=== PATIENT | female | born 1950 | race Caucasian/White ===

== ENCOUNTER → 2017-09-30 12:59 | Outpatient (CLI) | payer OTHER, SELFPAY ==
--- NOTE | 2017-10-09 17:37 | PM.PFT.1 ---
Pulmonary Function Test Referral & Results Date Patient Seen: 09/30/17 Requesting provider: Chayo Ballesteros Results: The spirometry demonstrates an FVC of 0.87 L which is 34% of predicted. The FEV1 was measured at 0.68 L which is 35% of predicted. The FEV1/FVC ratio was 78 which is 102% of predicted. Following the administration of bronchodilator there was 10% improvement in FEV1 and a 59% improvement in FEF 25-75%. Lung volumes show an SVC of 1.40 L which is 56% of predicted. The diffusing capacity was measured at 9.33 which is 49% of predicted. No hemoglobin value was provided, so no correction for potential anemia could be made, if appropriate. The maximum voluntary ventilation was reduced. Interpretation: This study demonstrates severe obstructive lung disease with an FEV1 of only 0.68 L. There was evidence of improvement following bronchodilator with a significant improvement in FEF 25-75% suggesting significant improvement in small airway flow. There is also severe restrictive lung disease present with a severe reduction in lung volumes There is also severe reduction in diffusing capacity suggesting significant disease at the capillary alveolar level. Compared to PFTs performed in November 2011, current study shows worsening of obstructive lung disease with previous FEV1 of 0.96 L now 0.68 L. Has also been reduction in lung volumes and previous diffusing capacity was normal, currently significantly reduced as above. Clinical correlation suggested
== END ==
PROVIDERS: Family Provider Internal Medicine; PCP Internal Medicine; Visit Provider Internal Medicine
DX: J44.9 Chronic obstructive pulmonary disease, unspecified (principal)
CPT/HCPCS: 94010; 94060; 94726; 94729

== ENCOUNTER 2018-06-01 06:32 | Day surgery (SDC) | payer OTHER, SELFPAY ==
[2018-06-01 07:17] VITALS: BP 147/74; PULSE 87; RESP 20; TEMP 36.4; O2SAT 95; BMI 50.1
[2018-06-01] MEDS: PROPARACAINE 0.5% OPHTH SOL 2 DROPS EYE-OP (07:18)
[2018-06-01] MEDS: CATARACT EYE COMPOUND (10 DROPS/SYRINGE) 3 DROPS EYE-OP (07:25)
--- NOTE | 2018-06-01 08:19 | PM.PREOP ---
Pre-operative Note Interval Note History & Physical reviewed/Exam performed by Physician: No Changes to H&P: No
--- NOTE | 2018-06-01 08:19 | PM.OP.1 ---
Operative Date/Time/Diagnoses Pre-op diagnosis: Nuclear Cataract Left eye Post-op diagnosis: same Procedure & Clinicians Surgeon: Vance Joyce Anesthesia Type: MAC +/- and Sedation Operative Notes Procedure in detail: Patient brought to the operating suite. Tetracaine drops placed in the left eye. Patient was prepped and draped in sterile manner. Wire lid speculum was placed in the eye. Betadine drops were placed on the eye. This was irrigated. Lidocaine jelly was placed on the eye. A paracentesis port was created with a side-port blade. 0.1 mL 1% preservative free lidocaine was injected into the anterior chamber. The anterior chamber was deepened with viscoelastic. 2.6 mm keratome was used to create a temporal clear corneal incision. Cystotome and Utrata forceps were used to create continuous tear capsulorrhexis. Balanced salt solution was used to hydro dissect the nucleus. The phacoemulsification handpiece was inserted and the nucleus was removed using the stop and chop technique. The irrigation aspiration handpiece was inserted and the remaining cortex was removed. Anterior chamber was deepened with viscoelastic. An Ellison ZCB00 intraocular lens with a power of 24.5 was injected into the capsular bag. Irrigation aspiration handpiece was inserted and the remaining viscoelastic was removed. Incision was hydrated with balanced salt solution and found to be leak free with pressure with Weck-Mylene sponges. 0.1 mL Vigamox injected anterior chamber. 0.3 mL Kenalog 10 mg was injected subconjunctivally. Lid speculum was removed. The patient left the operating room in excellent condition. Complications: none Condition: stable Disposition: same day surgery
[2018-06-01] MEDS: CHONDROIDTIN/SOD HYALURONATE 1.05 ML SYRINGE INTRAOCULA (08:34)
[2018-06-01] MEDS: TETRACAINE 0.5% OPHTH DROPS 4 ML 2 DROPS EYE-OP (08:35)
[2018-06-01] MEDS: MOXIFLOXACIN OPHTH DROPS 3 ML BOTTLE 2 DROPS INJ (08:35)
[2018-06-01] MEDS: LIDOCAINE JELLY 2% 5 ML 1 APPLIC TOP (08:35)
[2018-06-01] MEDS: PHENYLEPHRINE/LIDOCAINE VIAL (OR) 0.2 ML EYE-OP (08:35)
[2018-06-01] MEDS: BALANCED SALT IRRIG SOLN NO.2 500 ML, EPINEPHrine 1 MG IRR (08:36)
[2018-06-01] MEDS: TRIAMCINOLONE 50 MG/5 ML VIAL INJ (08:36)
[2018-06-01 08:53] VITALS: BP 130/76; PULSE 95; RESP 16; TEMP 36.2; O2SAT 97
--- NOTE | 2018-06-01 09:20 | SUR.PHASEII ---
Blair ate entry: Pt almost ready to go, reported off to KSENIA Watson
== END 2018-06-01 09:00 ==
PROVIDERS: Family Provider Internal Medicine; PCP Internal Medicine; Visit Provider Ophthalmology
DX: H25.12 Age-related nuclear cataract, left eye (principal); I10 Essential (primary) hypertension; E11.9 Type 2 diabetes mellitus without complications; Z79.84 Long term (current) use of oral hypoglycemic drugs
CPT/HCPCS: J0171; J2250; J3301

== ENCOUNTER 2018-06-29 06:46 | Day surgery (SDC) | payer OTHER, SELFPAY ==
[2018-06-29] MEDS: PROPARACAINE 0.5% OPHTH SOL 2 DROPS EYE-OP (07:47)
[2018-06-29] MEDS: CATARACT EYE COMPOUND (10 DROPS/SYRINGE) 3 DROPS EYE-OP (07:49)
[2018-06-29 07:55] VITALS: BP 143/52; PULSE 77; RESP 16; TEMP 36.6; O2SAT 91; BMI 47.9
--- NOTE | 2018-06-29 08:52 | PM.PREOP ---
Pre-operative Note Interval Note History & Physical reviewed/Exam performed by Physician: No Changes to H&P: No
--- NOTE | 2018-06-29 08:52 | PM.OP.1 ---
Operative Date/Time/Diagnoses Pre-op diagnosis: Nuclear cataract right eye Procedure & Clinicians Procedure: Cataract Surgery Same procedure as scheduled: Yes Surgeon: Vance Joyce Anesthesia Type: MAC +/- and Sedation Operative Notes Procedure in detail: Patient brought to the operating suite. Tetracaine drops placed in the right eye. Patient was prepped and draped in sterile manner. Wire lid speculum was placed in the eye. Betadine drops were placed on the eye. This was irrigated. Lidocaine jelly was placed on the eye. A paracentesis port was created with a side-port blade. 0.1 mL 1% preservative free lidocaine was injected into the anterior chamber. The anterior chamber was deepened with viscoelastic. 2.6 mm keratome was used to create a temporal clear corneal incision. Cystotome and Utrata forceps were used to create continuous tear capsulorrhexis. Balanced salt solution was used to hydro dissect the nucleus. The phacoemulsification handpiece was inserted and the nucleus was removed using the stop and chop technique. The irrigation aspiration handpiece was inserted and the remaining cortex was removed. Anterior chamber was deepened with viscoelastic. An Ellison ZCB00 intraocular lens with a power of 23.5 was injected into the capsular bag. Irrigation aspiration handpiece was inserted and the remaining viscoelastic was removed. Incision was hydrated with balanced salt solution and found to be leak free with pressure with Weck-Mylene sponges. 0.1 mL Vigamox injected anterior chamber. 0.3 mL Kenalog 10 mg was injected subconjunctivally. Lid speculum was removed. The patient left the operating room in excellent condition. Complications: none Condition: stable Disposition: same day surgery
[2018-06-29] MEDS: MOXIFLOXACIN OPHTH DROPS 3 ML BOTTLE 2 DROPS INJ (09:05)
[2018-06-29] MEDS: TRIAMCINOLONE 50 MG/5 ML VIAL INJ (09:05)
[2018-06-29] MEDS: PHENYLEPHRINE/LIDOCAINE VIAL (OR) 0.2 ML EYE-OP (09:05)
[2018-06-29] MEDS: CHONDROIDTIN/SOD HYALURONATE 1.05 ML SYRINGE INTRAOCULA (09:05)
[2018-06-29] MEDS: TETRACAINE 0.5% OPHTH DROPS 4 ML 2 DROPS EYE-OP (09:06)
[2018-06-29] MEDS: LIDOCAINE JELLY 2% 5 ML 1 APPLIC TOP (09:06)
[2018-06-29] MEDS: BALANCED SALT IRRIG SOLN NO.2 500 ML, EPINEPHrine 1 MG IRR (09:07)
[2018-06-29 09:21] VITALS: BP 133/57; PULSE 94; RESP 15; TEMP 36.3; O2SAT 93
--- NOTE | 2018-06-29 09:32 | SUR.PHASEII ---
Pt dressed when ready and left when ready and in stable condition.
== END 2018-06-29 09:32 ==
LOC: OR 06:47
PROVIDERS: Family Provider Internal Medicine; PCP Internal Medicine; Visit Provider Ophthalmology
DX: H25.11 Age-related nuclear cataract, right eye (principal); E11.9 Type 2 diabetes mellitus without complications; I10 Essential (primary) hypertension
CPT/HCPCS: J0171; J2250; J3010; J3301

== ENCOUNTER → 2019-05-18 13:56 | Outpatient (CLI) | payer OTHER, SELFPAY ==
--- NOTE | 2019-05-18 | DI.MG.S_ITS ---
BILATERAL DIGITAL SCREENING MAMMOGRAM 3D/2D WITH CAD: 05/18/2019 CLINICAL: Routine screening. Comparison is made to exams dated: 03/03/2016 mammogram and 09/19/2011 mammogram - [facility]. The tissue of both breasts is predominantly fatty. Current study was also evaluated with a Computer Aided Detection (CAD) system. No significant masses, calcifications, or other findings are seen in either breast. There has been no significant interval change. IMPRESSION: NEGATIVE There is no mammographic evidence of malignancy. A 1 year screening mammogram is recommended. This exam was interpreted at Station ID: [id number]. NOTE: For mammograms, a report in lay terms will be sent to the patient. Approximately 15% of breast malignancies will not be visualized mammographically. In the management of a palpable breast mass, a negative mammogram must not discourage biopsy of a clinically suspicious lesion. Electronically Signed By: Yomi li/barbra:05/18/2019 17:34:38 copy to: BILL CASTRO letter sent: Normal Exam ACR BI-RADS Category 1: Negative [id number]
== END ==
PROVIDERS: Family Provider Internal Medicine; PCP Internal Medicine; Referring Provider Internal Medicine; Visit Provider Student in an Organized Health Care Education/Training Program
DX: Z12.31 Encounter for screening mammogram for malignant neoplasm of breast (principal); M81.0 Age-related osteoporosis without current pathological fracture; Z78.0 Asymptomatic menopausal state; E11.9 Type 2 diabetes mellitus without complications
CPT/HCPCS: 77063; 77067; 77080; 77081

== ENCOUNTER → 2019-08-15 10:30 | Outpatient (CLI) | payer OTHER, SELFPAY ==
[2019-08-15 11:49] LABS: Add Manual Diff / Slide Review NO; Basophils Absolute Auto 100 /uL (0-100); Basophils Percent Auto 0.7 % (0-2); Eosinophils Absolute Auto 200 /uL (0-450); Eosinophils Percent Auto 2.3 % (2-4); Hematocrit 41.4 % (36-46); Hemoglobin 13.4 g/dL (12.0-16.0); Lymphocytes Absolute Auto 2100 /uL (1100-4500); Lymphocytes Percent Auto 22.7 % (25-40); Mean Corpuscular HGB Conc 32.3 % (30-36); Mean Corpuscular Hemoglobin 29.4 PG (26-34); Mean Corpuscular Volume 91.1 fL (80-100); Monocytes Absolute Auto 500 /uL (0-900); Neutrophils Absolute Auto 6300 /uL (1500-7000); Neutrophils Percent Auto 69.3 % (50-75); Platelet Count 210 X10^3/uL (150-400); Red Blood Cell Count 4.54 X10^6/uL (4.0-5.2); Red Cell Distribution Width 16.3 % (11.6-14.8); White Blood Cell Count 9.1 X10^3/uL (4.5-11.0)
[2019-08-15 12:02] LABS: Alanine Aminotransferase 18 IU/L (<35); Albumin 4.3 g/dL (3.5-5.0); Albumin Globulin Ratio 1.2 (1.0-2.8); Alkaline Phosphatase 84 U/L (38-126); Aspartate Aminotransferase 28 IU/L (14-36); BUN Creatinine Ratio 22.2 (6-22); Bilirubin Total 0.5 mg/dL (0.2-1.3); Blood Urea Nitrogen 22 mg/dL (7-17); Calcium 10.2 mg/dL (8.4-10.2); Carbon Dioxide 25 mmol/L (22-32); Chloride 108 mmol/L (98-107); Cholesterol 162 mg/dL (140-199); Estimated Glomerular Filt Rate 55.3 mL/min (>60); Globulin 3.5 g/dL (1.7-4.1); Glucose 148 mg/dL (80-110); HDL Cholesterol 40 mg/dL (40-60); HEMOLYSIS < 15 (0-50); LDL Cholesterol Calculated 87 mg/dL (<100); Potassium 4.8 mmol/L (3.4-5.1); Sodium 143 mmol/L (137-145); Total Protein 7.8 g/dL (6.3-8.2); Triglycerides 173 mg/dL (35-150); Uric Acid 6.2 mg/dL (2.5-6.2)
[2019-08-15 12:09] LABS: Hemoglobin A1C% w Est Avg Glu 6.5 % (4.0-6.0)
== END ==
PROVIDERS: Family Provider Internal Medicine; PCP Internal Medicine; Referring Provider Internal Medicine; Visit Provider Internal Medicine
DX: E11.9 Type 2 diabetes mellitus without complications (principal); E78.5 Hyperlipidemia, unspecified; I10 Essential (primary) hypertension; M10.9 Gout, unspecified
CPT/HCPCS: 36415; 80053; 80061; 83036; 84550; 85025

== ENCOUNTER → 2020-11-13 11:24 | Outpatient (CLI) | payer OTHER, SELFPAY ==
[2020-11-13 12:12] LABS: Hemoglobin A1C% w Est Avg Glu 5.5 % (4.0-6.0)
[2020-11-13 12:15] LABS: Alanine Aminotransferase 14 IU/L (<35); Albumin 4.3 g/dL (3.5-5.0); Albumin Globulin Ratio 1.4 (1.0-2.8); Alkaline Phosphatase 74 U/L (38-126); Aspartate Aminotransferase 29 IU/L (14-36); Bilirubin Total 0.6 mg/dL (0.2-1.3); Blood Urea Nitrogen 20 mg/dL (7-17); Calcium 9.9 mg/dL (8.4-10.2); Carbon Dioxide 24 mmol/L (22-32); Chloride 111 mmol/L (98-107); Cholesterol 148 mg/dL (140-199); Estimated Glomerular Filt Rate 48.3 mL/min (>60); Globulin 3.1 g/dL (1.7-4.1); Glucose 111 mg/dL (80-110); HDL Cholesterol 47 mg/dL (40-60); HEMOLYSIS < 15 (0-50); LDL Cholesterol Calculated 71 mg/dL (<100); Potassium 4.9 mmol/L (3.4-5.1); Sodium 143 mmol/L (137-145); Total Protein 7.4 g/dL (6.3-8.2); Triglycerides 149 mg/dL (35-150)
== END ==
PROVIDERS: Family Provider Internal Medicine; PCP Internal Medicine; Referring Provider Internal Medicine; Visit Provider Internal Medicine
DX: E11.9 Type 2 diabetes mellitus without complications (principal); E78.2 Mixed hyperlipidemia; I10 Essential (primary) hypertension
CPT/HCPCS: 36415; 80053; 80061; 83036

== ENCOUNTER → 2021-02-18 11:01 | Outpatient (CLI) | payer OTHER, SELFPAY ==
[2021-02-18 12:54] LABS: Hemoglobin A1C% w Est Avg Glu 5.4 % (4.0-6.0)
[2021-02-18 13:38] LABS: BUN Creatinine Ratio 22.6 (6-22); Blood Urea Nitrogen 26 mg/dL (7-17); Calcium 10.4 mg/dL (8.4-10.2); Carbon Dioxide 26 mmol/L (22-32); Chloride 108 mmol/L (98-107); Estimated Glomerular Filt Rate 46.4 mL/min (>60); Glucose 107 mg/dL (80-110); HEMOLYSIS < 15 (0-50); Potassium 5.3 mmol/L (3.4-5.1); Sodium 143 mmol/L (137-145)
[2021-02-18 15:59] LABS: Microalbumi Creatinin Ratio Ur 218.3 ug/mg CR (<30); Microalbumin Urine Random 10.7 mg/dL (0-1.6)
== END ==
PROVIDERS: Family Provider Internal Medicine; PCP Internal Medicine; Referring Provider Internal Medicine; Visit Provider Internal Medicine
DX: E11.9 Type 2 diabetes mellitus without complications (principal); E78.2 Mixed hyperlipidemia; I10 Essential (primary) hypertension
CPT/HCPCS: 36415; 80048; 82043; 82570; 83036

== ENCOUNTER → 2021-06-19 10:20 | Outpatient (CLI) | payer OTHER, SELFPAY ==
[2021-06-19 12:21] LABS: Alanine Aminotransferase 15 IU/L (<35); Albumin 4.3 g/dL (3.5-5.0); Albumin Globulin Ratio 1.1 (1.0-2.8); Alkaline Phosphatase 74 U/L (38-126); Aspartate Aminotransferase 29 IU/L (14-36); BUN Creatinine Ratio 21.9 (6-22); Bilirubin Total 0.5 mg/dL (0.2-1.3); Blood Urea Nitrogen 25 mg/dL (7-17); Calcium 9.7 mg/dL (8.4-10.2); Carbon Dioxide 25 mmol/L (22-32); Chloride 109 mmol/L (98-107); Estimated Glomerular Filt Rate 46.7 mL/min (>60); Globulin 3.8 g/dL (1.7-4.1); Glucose 119 mg/dL (80-110); HEMOLYSIS < 15 (0-50); Potassium 4.6 mmol/L (3.4-5.1); Sodium 145 mmol/L (137-145); Total Protein 8.1 g/dL (6.3-8.2)
[2021-06-19 12:27] LABS: Hemoglobin A1C% w Est Avg Glu 5.7 % (4.0-6.0)
== END ==
PROVIDERS: Family Provider Internal Medicine; PCP Internal Medicine; Referring Provider Internal Medicine; Visit Provider Internal Medicine
DX: N18.31 Chronic kidney disease, stage 3a (principal); I10 Essential (primary) hypertension; E78.2 Mixed hyperlipidemia
CPT/HCPCS: 36415; 80053; 83036

== ENCOUNTER 2021-08-23 10:02 | Inpatient (IN) | payer OTHER, SELFPAY ==
[2021-08-23] VITALS (16 sets, daily range): BP systolic 97–129; BP diastolic 11–73; PULSE 102–132; RESP 16–32; TEMP 35.8–36.5; O2SAT 94–97; BMI 45.1
--- NOTE | 2021-08-23 10:15 | DI.RAD.S_ITS ---
PROCEDURE: XR CHEST 1V INDICATIONS: chest pain TECHNIQUE: One view of the chest was acquired. COMPARISON: [facility], , CHEST 2VW, 10/23/2011, 10:11. FINDINGS: Surgical changes and devices: None. Lungs and pleura: No focal infiltrates are seen. Mild blunting of the costophrenic angles can be seen, right worse than left. Generalized interstitial prominence can be seen. No pneumothorax is seen. Mediastinum: Mediastinal contours appear normal. Heart size is at least moderately enlarged. Bones and chest wall: No suspicious bony lesions. Age-appropriate bony degenerative changes are seen. Overlying soft tissues appear unremarkable. IMPRESSION: There is at least moderate cardiomegaly with interstitial prominence and small bilateral pleural effusions, right worse than left. Please correlate with patient presentation, physical examination findings, and laboratory values for congestive heart failure. Dictated by: Yakov Vick M.D. on 08/23/2021 at 9:51 Approved by: Yakov Vick M.D. on 08/23/2021 at 9:52
[2021-08-23 10:31] LABS: Add Manual Diff / Slide Review NO; Basophils Absolute Auto 100 /uL (0-100); Basophils Percent Auto 0.7 % (0-2); Eosinophils Absolute Auto 100 /uL (0-450); Eosinophils Percent Auto 1.8 % (2-4); Hematocrit 37.7 % (36-46); Hemoglobin 11.6 g/dL (12.0-16.0); Lymphocytes Absolute Auto 1400 /uL (1100-4500); Lymphocytes Percent Auto 18.8 % (25-40); Mean Corpuscular HGB Conc 30.8 % (30-36); Mean Corpuscular Hemoglobin 27.5 PG (26-34); Mean Corpuscular Volume 89.3 fL (80-100); Monocytes Absolute Auto 500 /uL (0-900); Monocytes Percent Auto 6.8 % (3-14); Neutrophils Absolute Auto 5400 /uL (1500-7000); Neutrophils Percent Auto 71.9 % (50-75); Platelet Count 212 X10^3/uL (150-400); Red Blood Cell Count 4.23 X10^6/uL (4.0-5.2); Red Cell Distribution Width 17.3 % (11.6-14.8); White Blood Cell Count 7.6 X10^3/uL (4.5-11.0)
[2021-08-23 10:38] LABS: Prothrombin Time 11.6 SECONDS (10.1-12.7)
[2021-08-23 10:41] LABS: PTT Partial Thromboplastin Tim 32 SECONDS (26.4-36.2)
[2021-08-23 10:50] LABS: Alanine Aminotransferase 14 IU/L (<35); Albumin 4.2 g/dL (3.5-5.0); Albumin Globulin Ratio 1.2 (1.0-2.8); Alkaline Phosphatase 65 U/L (38-126); Aspartate Aminotransferase 29 IU/L (14-36); BUN Creatinine Ratio 17.9 (6-22); Bilirubin Total 0.6 mg/dL (0.2-1.3); Blood Urea Nitrogen 24 mg/dL (7-17); Calcium 9.5 mg/dL (8.4-10.2); Carbon Dioxide 19 mmol/L (22-32); Chloride 114 mmol/L (98-107); Creatine Kinase 39 U/L (30-135); Estimated Glomerular Filt Rate 42 mL/min (>60); Globulin 3.4 g/dL (1.7-4.1); Glucose 63 mg/dL (80-110); HEMOLYSIS < 15 (0-50); Lipase 170 U/L (23-300); Magnesium 1.9 mg/dL (1.6-2.3); Potassium 4.6 mmol/L (3.4-5.1); Sodium 142 mmol/L (137-145); Total Protein 7.6 g/dL (6.3-8.2)
[2021-08-23 11:00] LABS: Troponin I 0.027 ng/mL (0.01-0.034)
[2021-08-23 11:02] LABS: Appearance Urine UA CLOUDY; Bilirubin Urine UA NEGATIVE (NEGATIVE); Color Urine UA YELLOW; Glucose Urine UA NEGATIVE (Negative); Ketones Urine UA NEGATIVE (NEGATIVE); Leukocyte Esterase Urine UA 3+ (NEGATIVE); Nitrite Urine UA POSITIVE (Negative); Occult Blood Urine UA 3+ (Negative); Protein Urine UA 2+ (Negative); Specific Gravity Urine UA 1.015 (1.000-1.035); Urobilinogen Urine UA 0.2 E.U./dL (0.2)
--- NOTE | 2021-08-23 11:07 | ED.WEAKNESS ---
HPI - Weakness General Chief complaint: Weakness Stated complaint: low blood sugar (98 this morning) Time Seen by Provider: 08/23/21 10:48 Source: patient Mode of arrival: Wheelchair History of Present Illness HPI Narrative: Patient is a 71-year-old female history of diabetes on glipizide, hypertension, chronic kidney disease, COPD, hyperlipidemia, morbid obesity presents today with low glucose. She says she woke up and just feeling weak and tired she checked her glucose at home it was 98 she took her glipizide and came to the ER. She said that she had 2 spoonfuls of mashed potatoes at home but really did not feel much like eating. She has no chest pain or palpitations. No shortness of breath. She overall does not feel well. Glucose upon arrival in the ED is 57. Related Data Home Medications Medication Instructions Recorded Confirmed Resmed Airsense 10 CPAP #1 ea 06/24/18 08/23/21 albuterol sulfate 90 mcg/actuation 2 puff inhalation DAILY PRN 04/28/19 08/23/21 aerosol inhaler (Ventolin HFA) Adequate Ventilation Previous Rx's Medication Instructions Recorded FERROUS GLUCONATE (IRON) 325 mg PO BID ##90 07/30/11 Nidhi Next Contour Test Strips #250 ea 02/20/20 Microlet Lancets #100 ea 12/25/20 lisinopril 20 mg tablet 20 mg PO DAILY #90 tabs 12/25/20 fenofibrate 160 mg tablet 160 mg PO DAILY #90 tabs 06/28/21 letrozole 2.5 mg tablet 2.5 mg PO BID #180 tabs 06/28/21 allopurinol 300 mg tablet 300 mg PO DAILY #90 tabs 08/02/21 atorvastatin 20 mg tablet 20 mg PO DAILY #90 tabs 08/02/21 glipizide 10 mg tablet 10 mg PO DAILY #90 tabs 08/02/21 metformin 850 mg tablet 850 mg PO TID #270 tabs 08/02/21 Allergies Allergy/AdvReac Type Severity Reaction Status Date / Time fluticasone Allergy Severe FACIAL Verified 08/23/21 10:09 [From Advair Diskus] SWELLING AND TURNS RED salmeterol Allergy Severe FACIAL Verified 08/23/21 10:09 [From Advair Diskus] SWELLING AND TURNS RED albuterol Allergy Intermediate FACE Verified 08/23/21 10:09 SWELLING NO SOB adhesive Allergy Mild MEDICAL Verified 08/23/21 10:09 TAPE LEAVES RED RASH Review of Systems Review of Systems Narrative: GENERAL: Generalized weakness HEENT: Denies sinus pain, ear pain, sore throat, difficulty swallowing, neck pain RESPIRATORY: Denies dyspnea, cough, wheezing, hemoptysis, sputum. CARDIOVASCULAR: Denies chest pain, palpitations, orthopnea, edema GASTROINTESTINAL: Denies nausea, vomiting, abdominal pain, diarrhea, constipation, melena. : Denies dysuria, frequency, incontinence, hematuria, urinary retention, flank pain. MUSCULOSKELETAL: Denies weakness, joint pain, or bony pain SKIN: No rash, no erythema, no pruritus NEUROLOGIC: Denies weakness, dizziness, headache, numbness, change in speech, confusion PSYCHIATRIC: No concerning psychosocial issues. 12 point review of systems is negative except for those stated above and HPI Patient History Medical History Chronic gout Chronic renal failure, stage 3a (~11/23/20) Chronic venous stasis dermatitis of both lower extremities COPD (chronic obstructive pulmonary disease) Hyperlipidemia Hypertension Leg pain Low back pain Morbid obesity due to excess calories Nocturia more than twice per night Obesity with alveolar hypoventilation Obstructive sleep apnea of adult Osteoporosis Pulmonary hypertension Type 2 diabetes mellitus Surgical History S/P cataract extraction and insertion of intraocular lens (~12/2018) Status post dilation and curettage (08/18/11) Status post dilation and curettage (02/08/14) Status post dilation and curettage (07/19/13) Status post tubal ligation Family History Brother Heart disease Brother Heart disease Father Heart disease Mother Heart disease Sister Age: 75 Heart disease Diabetes mellitus Social History marital status: details: with 4 adult daughters household members: none Smoking Status: Never smoker alcohol intake: current substance use type: does not use Smoking Status: Never smoker alcohol intake frequency: holidays/special occasions only Substance Use Type: does not use Exam Initial Vital Signs Initial Vital Signs: Vital Signs Temperature 97.7 F 08/23/21 10:07 Pulse Rate 110 H 08/23/21 10:07 Respiratory Rate 16 08/23/21 10:07 Blood Pressure 123/64 08/23/21 10:07 Pulse Oximetry 95 08/23/21 10:07 Oxygen Delivery Method 08/23/21 10:07 GENERAL: Alert pleasant 71-year-old female no acute distress. HEENT: Head atraumatic,EOMI, pupils reactive, face symmetric, moist mucous membranes CARDIOVASCULAR: Irregular no murmur RESPIRATORY: Breath sounds equal bilaterally, no wheezes rales or rhonchi. ABDOMEN: Soft, nontender. Normoactive bowel sounds all 4 quadrants. No guarding or rebound. EXTREMITIES: Normal range of motion, no clubbing or edema. Neurovascularly intact NEUROLOGICAL: Alert and oriented x4.Normal gait and speech. Ice Cream [employer] strength equal bilaterally SKIN: Warm, dry, no laceration, no petechiae, no rashes or lesions. Course Orders Ordered: ED Orders 08/23/21 10:15 XR chest 1V Stat EKG-12 Lead Stat 08/23/21 10:25 Complete Blood Count AUTO DIFF Stat Comprehensive Metabolic Panel Stat Lactate (Lactic Acid) Stat Lipase Stat Magnesium Stat Partial Thromboplastin Time Stat Procalcitonin Stat Prothrombin Time INR Stat TSH w/ Reflex to FT4 Urgent Troponin & CK Cardiac Panel Stat 08/23/21 10:45 D Dimer Stat 08/23/21 10:49 UA dip and micro [Urinalysis and Microscopic] Stat Urine Culture Stat 08/23/21 11:20 EKG-12 Lead Stat 08/23/21 11:47 BNP [NT-proBNP (BNP-Adult 18+)] Stat 08/23/21 12:00 Blood Culture Stat 08/23/21 12:33 COVID19 -Nasal RAPID/Pre-Proc Stat 08/23/21 12:34 EC echo doppler complete Stat 08/24/21 05:00 Basic Metabolic Panel Routine Magnesium Routine Allopurinol (Allopurinol 300 Mg Tablet) 300 mg PO DAILY [place] Atorvastatin Calcium (Atorvastatin 20 Mg Tablet) 20 mg PO DAILY [facility] Dextrose (Dextrose 50 % In Water 25 Gm/50 Ml Syringe) 25 gm IV PRN PRN PRN Reason: Hypoglycemia Enoxaparin Sodium (Enoxaparin 40 Mg/0.4 Ml Syringe) 40 mg SUBCUT DAILY [facility] Fenofibrate (Fenofibrate, Micronized 67 Mg Capsule) 201 mg PO DAILY [facility] Ceftriaxone Sodium 1,000 mg/ (Sodium Chloride) 100 mls @ 200 mls/hr IV Q24H [facility] Insulin Human Lispro (Insulin Lispro 100 Unit/Ml 3ml Vial) 0 unit SUBCUT ACHS [facility]; Protocol Last Admin: 08/23/21 16:58 Dose: Not Given Documented By: CRISSY Letrozole (Letrozole 2.5 Mg Tablet) 2.5 mg PO BID [facility] Metoprolol Tartrate (Metoprolol Ir 25 Mg Tablet) 25 mg PO Q6HR [facility] Last Admin: 08/23/21 17:35 Dose: 25 mg Documented By: Admin: 08/23/21 14:10 Dose: 25 mg Documented By: CRISSY Naloxone HCl (Naloxone 0.4 Mg/Ml Vial) 0.2 mg IV Q2MIN PRN PRN Reason: Opiate Reversal Sodium Chloride (Sodium Chloride 0.9% Flush) 10 ml IV PRN PRN PRN Reason: Flush Sodium Chloride (Sodium Chloride 0.9% Flush) 10 ml IV BID [facility] Discontinued Medications Furosemide (Furosemide 40 Mg/4 Ml Vial) 20 mg IV NOW ONE Stop: 08/23/21 12:16 Last Admin: 08/23/21 12:35 Dose: 20 mg Documented By: CSD Ceftriaxone Sodium 1,000 mg/ (Sodium Chloride) 100 mls @ 200 mls/hr IV NOW ONE Stop: 08/23/21 11:16 Last Infusion: 08/23/21 13:02 Dose: 0 mls/hr Documented By: Admin: 08/23/21 12:16 Dose: 200 mls/hr Documented By: AT Metoprolol Tartrate (Metoprolol Tartrate 5 Mg/5 Ml Inj) 5 mg IV NOW ONE Stop: 08/23/21 11:50 Last Admin: 08/23/21 12:01 Dose: 5 mg Documented By: AT Vital Signs Vital signs: Vital Signs - 8 hr 08/23/21 11:44 08/23/21 11:30 08/23/21 11:50 Pulse Rate 132 H 118 H Respiratory Rate 30 H 32 H 23 Blood Pressure Pulse Oximetry 96 95 Oxygen Delivery Method Nasal Cannula Nasal Cannula Oxygen Flow Rate 2 2 08/23/21 11:50 08/23/21 12:00 08/23/21 12:00 Pulse Rate 114 H Respiratory Rate 18 Blood Pressure 121/73 129/69 Pulse Oximetry 95 Oxygen Delivery Method Oxygen Flow Rate 08/23/21 12:08 08/23/21 12:08 08/23/21 12:10 Pulse Rate 109 H 107 H Respiratory Rate 18 21 Blood Pressure 104/11 L Pulse Oximetry 95 95 Oxygen Delivery Method Oxygen Flow Rate 08/23/21 12:10 08/23/21 12:25 08/23/21 12:25 Pulse Rate 104 H Respiratory Rate 25 H Blood Pressure 108/71 97/54 L Pulse Oximetry 95 Oxygen Delivery Method Oxygen Flow Rate 08/23/21 12:30 08/23/21 12:30 Pulse Rate 105 H Respiratory Rate 20 Blood Pressure 99/57 L Pulse Oximetry 97 Oxygen Delivery Method Oxygen Flow Rate MDM - Weakness Lab Data Result diagrams: 08/23/21 10:25 08/23/21 10:25 Labs: Lab Results 08/23/21 08/23/21 08/23/21 Range/Units 10:25 10:25 10:25 WBC 7.6 (4.5-11.0) X10^3/uL RBC 4.23 (4.0-5.2) X10^6/uL Hgb 11.6 L (12.0-16.0) g/dL Hct 37.7 (36-46) % MCV 89.3 (80-100) fL MCH 27.5 (26-34) PG MCHC 30.8 (30-36) % RDW 17.3 H (11.6-14.8) % Plt Count 212 (150-400) X10^3/uL Neut % (Auto) 71.9 (50-75) % Lymph % (Auto) 18.8 L (25-40) % Pershing % (Auto) 6.8 (3-14) % Eos % (Auto) 1.8 L (2-4) % Baso % (Auto) 0.7 (0-2) % Neut # (Auto) 5400 (3429-2560) /uL Lymph # (Auto) 1400 (6095-8867) /uL Pershing # (Auto) 500 (0-900) /uL Eos # (Auto) 100 (0-450) /uL Baso # (Auto) 100 (0-100) /uL PT 11.6 (10.1-12.7) SECONDS INR 1.0 (0.9-1.3) APTT 32 (26.4-36.2) SECONDS D-Dimer (<230) ng/mL Sodium 142 (137-145) mmol/L Potassium 4.6 (3.4-5.1) mmol/L Chloride 114 H (98-107) mmol/L Carbon Dioxide 19 L (22-32) mmol/L BUN 24 H (7-17) mg/dL Creatinine 1.34 H (0.52-1.04) mg/dL Estimated GFR 42 L (>60) mL/min BUN/Creatinine Ratio 17.9 (6-22) Glucose 63 L (80-110) mg/dL Lactate (0.7-2.1) mmol/L Calcium 9.5 (8.4-10.2) mg/dL Magnesium 1.9 (1.6-2.3) mg/dL Total Bilirubin 0.6 (0.2-1.3) mg/dL AST 29 (14-36) IU/L ALT 14 (<35) IU/L Alkaline Phosphatase 65 (38-126) U/L Total Creatine Kinase 39 (30-135) U/L CK-MB (CK-2) TNP CK-MB (CK-2) Rel Index TNP Troponin I 0.027 (0.01-0.034) ng/mL NT-Pro-B Natriuret Pep (<125) pg/mL Total Protein 7.6 (6.3-8.2) g/dL Albumin 4.2 (3.5-5.0) g/dL Globulin 3.4 (1.7-4.1) g/dL Albumin/Globulin Ratio 1.2 (1.0-2.8) Lipase 170 (23-300) U/L Procalcitonin (<0.5) ng/mL TSH (0.47-4.68) uIU/mL Urine Color Urine Appearance Urine pH (4.5-8.0) Ur Specific [place] (1.000-1.035) Urine Protein (Negative) Urine Glucose (UA) (Negative) g/dL Urine Ketones (NEGATIVE) Urine Occult Blood (Negative) Urine Nitrate (Negative) Urine Bilirubin (NEGATIVE) Urine Urobilinogen (0.2) E.U./dL Ur Leukocyte Esterase (NEGATIVE) Urine RBC (0-5/HPF) Urine WBC (0-5/HPF) Ur Squamous Epith Cells (0-5/HPF) Urine Bacteria (None) Ur Culture Indicated? SARS-CoV-2 (PCR) (Negative) 08/23/21 08/23/21 08/23/21 Range/Units 10:25 10:25 10:25 WBC (4.5-11.0) X10^3/uL RBC (4.0-5.2) X10^6/uL Hgb (12.0-16.0) g/dL Hct (36-46) % MCV (80-100) fL MCH (26-34) PG MCHC (30-36) % RDW (11.6-14.8) % Plt Count (150-400) X10^3/uL Neut % (Auto) (50-75) % Lymph % (Auto) (25-40) % Pershing % (Auto) (3-14) % Eos % (Auto) (2-4) % Baso % (Auto) (0-2) % Neut # (Auto) (5236-4676) /uL Lymph # (Auto) (3038-6494) /uL Pershing # (Auto) (0-900) /uL Eos # (Auto) (0-450) /uL Baso # (Auto) (0-100) /uL PT (10.1-12.7) SECONDS INR (0.9-1.3) APTT (26.4-36.2) SECONDS D-Dimer (<230) ng/mL Sodium (137-145) mmol/L Potassium (3.4-5.1) mmol/L Chloride (98-107) mmol/L Carbon Dioxide (22-32) mmol/L BUN (7-17) mg/dL Creatinine (0.52-1.04) mg/dL Estimated GFR (>60) mL/min BUN/Creatinine Ratio (6-22) Glucose (80-110) mg/dL Lactate 1.6 (0.7-2.1) mmol/L Calcium (8.4-10.2) mg/dL Magnesium (1.6-2.3) mg/dL Total Bilirubin (0.2-1.3) mg/dL AST (14-36) IU/L ALT (<35) IU/L Alkaline Phosphatase (38-126) U/L Total Creatine Kinase (30-135) U/L CK-MB (CK-2) CK-MB (CK-2) Rel Index Troponin I (0.01-0.034) ng/mL NT-Pro-B Natriuret Pep (<125) pg/mL Total Protein (6.3-8.2) g/dL Albumin (3.5-5.0) g/dL Globulin (1.7-4.1) g/dL Albumin/Globulin Ratio (1.0-2.8) Lipase (23-300) U/L Procalcitonin 0.08 (<0.5) ng/mL TSH 1.27 (0.47-4.68) uIU/mL Urine Color Urine Appearance Urine pH (4.5-8.0) Ur Specific [place] (1.000-1.035) Urine Protein (Negative) Urine Glucose (UA) (Negative) g/dL Urine Ketones (NEGATIVE) Urine Occult Blood (Negative) Urine Nitrate (Negative) Urine Bilirubin (NEGATIVE) Urine Urobilinogen (0.2) E.U./dL Ur Leukocyte Esterase (NEGATIVE) Urine RBC (0-5/HPF) Urine WBC (0-5/HPF) Ur Squamous Epith Cells (0-5/HPF) Urine Bacteria (None) Ur Culture Indicated? SARS-CoV-2 (PCR) (Negative) 08/23/21 08/23/21 08/23/21 Range/Units 10:45 10:49 11:47 WBC (4.5-11.0) X10^3/uL RBC (4.0-5.2) X10^6/uL Hgb (12.0-16.0) g/dL Hct (36-46) % MCV (80-100) fL MCH (26-34) PG MCHC (30-36) % RDW (11.6-14.8) % Plt Count (150-400) X10^3/uL Neut % (Auto) (50-75) % Lymph % (Auto) (25-40) % Pershing % (Auto) (3-14) % Eos % (Auto) (2-4) % Baso % (Auto) (0-2) % Neut # (Auto) (1315-2729) /uL Lymph # (Auto) (5843-9586) /uL Pershing # (Auto) (0-900) /uL Eos # (Auto) (0-450) /uL Baso # (Auto) (0-100) /uL PT (10.1-12.7) SECONDS INR (0.9-1.3) APTT (26.4-36.2) SECONDS D-Dimer 212 (<230) ng/mL Sodium (137-145) mmol/L Potassium (3.4-5.1) mmol/L Chloride (98-107) mmol/L Carbon Dioxide (22-32) mmol/L BUN (7-17) mg/dL Creatinine (0.52-1.04) mg/dL Estimated GFR (>60) mL/min BUN/Creatinine Ratio (6-22) Glucose (80-110) mg/dL Lactate (0.7-2.1) mmol/L Calcium (8.4-10.2) mg/dL Magnesium (1.6-2.3) mg/dL Total Bilirubin (0.2-1.3) mg/dL AST (14-36) IU/L ALT (<35) IU/L Alkaline Phosphatase (38-126) U/L Total Creatine Kinase (30-135) U/L CK-MB (CK-2) CK-MB (CK-2) Rel Index Troponin I (0.01-0.034) ng/mL NT-Pro-B Natriuret Pep 4940 H (<125) pg/mL Total Protein (6.3-8.2) g/dL Albumin (3.5-5.0) g/dL Globulin (1.7-4.1) g/dL Albumin/Globulin Ratio (1.0-2.8) Lipase (23-300) U/L Procalcitonin (<0.5) ng/mL TSH (0.47-4.68) uIU/mL Urine Color Yellow Urine Appearance Cloudy Urine pH 6.0 (4.5-8.0) Ur Specific [place] 1.015 (1.000-1.035) Urine Protein 2+ H (Negative) Urine Glucose (UA) Negative (Negative) g/dL Urine Ketones Negative (NEGATIVE) Urine Occult Blood 3+ H (Negative) Urine Nitrate Positive H (Negative) Urine Bilirubin Negative (NEGATIVE) Urine Urobilinogen 0.2 (0.2) E.U./dL Ur Leukocyte Esterase 3+ H (NEGATIVE) Urine RBC 30-100/hpf H (0-5/HPF) Urine WBC >100/hpf H (0-5/HPF) Ur Squamous Epith Cells 1-5 /hpf (0-5/HPF) Urine Bacteria Many (>30) H (None) Ur Culture Indicated? Specimen cultured SARS-CoV-2 (PCR) (Negative) 08/23/21 Range/Units 12:33 WBC (4.5-11.0) X10^3/uL RBC (4.0-5.2) X10^6/uL Hgb (12.0-16.0) g/dL Hct (36-46) % MCV (80-100) fL MCH (26-34) PG MCHC (30-36) % RDW (11.6-14.8) % Plt Count (150-400) X10^3/uL Neut % (Auto) (50-75) % Lymph % (Auto) (25-40) % Pershing % (Auto) (3-14) % Eos % (Auto) (2-4) % Baso % (Auto) (0-2) % Neut # (Auto) (9737-0337) /uL Lymph # (Auto) (9570-2989) /uL Pershing # (Auto) (0-900) /uL Eos # (Auto) (0-450) /uL Baso # (Auto) (0-100) /uL PT (10.1-12.7) SECONDS INR (0.9-1.3) APTT (26.4-36.2) SECONDS D-Dimer (<230) ng/mL Sodium (137-145) mmol/L Potassium (3.4-5.1) mmol/L Chloride (98-107) mmol/L Carbon Dioxide (22-32) mmol/L BUN (7-17) mg/dL Creatinine (0.52-1.04) mg/dL Estimated GFR (>60) mL/min BUN/Creatinine Ratio (6-22) Glucose (80-110) mg/dL Lactate (0.7-2.1) mmol/L Calcium (8.4-10.2) mg/dL Magnesium (1.6-2.3) mg/dL Total Bilirubin (0.2-1.3) mg/dL AST (14-36) IU/L ALT (<35) IU/L Alkaline Phosphatase (38-126) U/L Total Creatine Kinase (30-135) U/L CK-MB (CK-2) CK-MB (CK-2) Rel Index Troponin I (0.01-0.034) ng/mL NT-Pro-B Natriuret Pep (<125) pg/mL Total Protein (6.3-8.2) g/dL Albumin (3.5-5.0) g/dL Globulin (1.7-4.1) g/dL Albumin/Globulin Ratio (1.0-2.8) Lipase (23-300) U/L Procalcitonin (<0.5) ng/mL TSH (0.47-4.68) uIU/mL Urine Color Urine Appearance Urine pH (4.5-8.0) Ur Specific [place] (1.000-1.035) Urine Protein (Negative) Urine Glucose (UA) (Negative) g/dL Urine Ketones (NEGATIVE) Urine Occult Blood (Negative) Urine Nitrate (Negative) Urine Bilirubin (NEGATIVE) Urine Urobilinogen (0.2) E.U./dL Ur Leukocyte Esterase (NEGATIVE) Urine RBC (0-5/HPF) Urine WBC (0-5/HPF) Ur Squamous Epith Cells (0-5/HPF) Urine Bacteria (None) Ur Culture Indicated? SARS-CoV-2 (PCR) Negative (Negative) Point of Care Testing Glucose POC 82 Urine Dip Bedside Urine Glucose Negative Bedside Urine Bilirubin - Negative Bedside Urine Ketone - Negative Urine Specific [place] 1.020 Bedside Urine Occult Blood +++ Bedside Urine pH 6.0 Bedside Urine Protein ++ 100 Bedside Urine Urobilinogen 0.2 Bedside Urine Nitrite - Negative Bedside Urine Leukocytes +++ 500 Esterase Imaging Data Chest x-ray: Radiologist Impression: XRay Report Signed Patient: Quiana Krishnan V MR#: [id number] : 1950 Acct:[id number] Age/Sex: 71 / F Date of Service: 08/23/21 Loc: ED Accession Number: [id number] ?? Procedure: XR chest 1V Ordering Provider: Snehal Jean Baptiste MD PROCEDURE:? XR CHEST 1V ? INDICATIONS:? chest pain ? TECHNIQUE:? One view of the chest was acquired.? ? COMPARISON:? [facility], CR, CHEST 2VW, 10/23/2011, 10:11. ? FINDINGS:? ? Surgical changes and devices:? None.? ? Lungs and pleura:? No focal infiltrates are seen.? Mild blunting of the costophrenic angles can be seen, right worse than left.? Generalized interstitial prominence can be seen.? No pneumothorax is seen. ? Mediastinum:? Mediastinal contours appear normal.? Heart size is at least moderately enlarged.? ? Bones and chest wall:? No suspicious bony lesions.? Age-appropriate bony degenerative changes are seen. ? Overlying soft tissues appear unremarkable.? ? ? IMPRESSION:? There is at least moderate cardiomegaly with interstitial prominence and small bilateral pleural effusions, right worse than left. Please correlate with patient presentation, physical examination findings, and laboratory values for congestive heart failure. ? ? ? Dictated by: Yakov Vick M.D. on 08/23/2021 at 9:51 ? ? Approved by: Yakov Vick M.D. on 08/23/2021 at 9:52 ? ECG Data Interpretation: AFib rate [address] changes new from previous EKG MDM Narrative Medical decision making narrative: Patient has numerous issues. His hypoglycemic on glipizide she is currently eating. However she is found to have UTI and new onset AFib. Heart rate was elevated in the 120s but improved with Lopressor. She also has been complaining of some shortness of breath, she is found to have elevated BNP and bilateral pleural effusions. She is given a dose of Lasix which she has urinated with. She is not significantly hypoxic. She says that she has oxygen at home which she uses occasionally but has been taking it more frequently. Unclear when she went into AFib she is is not very symptomatic. Discharge Plan Departure Patient Disposition: Admitted As Inpatient Clinical Impression: Atrial fibrillation with rapid ventricular response, Hypoglycemia, CHF exacerbation, Acute UTI Admit Date/Time: 08/23/21 12:34 Admit Provider: Germán Gloria
[2021-08-23 11:09] LABS: Bacteria Urine Many (>30); Culture Indicated Urine Specimen Cultured; RBC Urine 30-100/HPF (0-5/HPF); Squamous Epithelial Cell Urine 1-5 /HPF (0-5/HPF); WBC Urine >100/HPF (0-5/HPF)
[2021-08-23 11:39] LABS: Lactate (Lactic Acid) 1.6 mmol/L (0.7-2.1)
--- NOTE | 2021-08-23 11:43 | PC.NURSE ---
Pt assisted to commode, SOB on exertion, RT at bedside and pt states she wears home oxygen during exertion. Pt placed on 2L NC.
[2021-08-23 11:54] LABS: D Dimer 212 ng/mL (<230)
[2021-08-23 11:57] LABS: Procalcitonin 0.08 ng/mL (<0.5)
[2021-08-23] MEDS: METOPROLOL TARTRATE 5 MG/5 ML INJ IV (12:01)
[2021-08-23 12:05] LABS: NT-proBNP (BNP-Adult 18+) 4940 pg/mL (<125)
[2021-08-23] MEDS: cefTRIAXone 1,000 MG in SODIUM CHLORIDE 0.9% 100 ML 200 MG IV (12:16)
--- NOTE | 2021-08-23 12:34 | DI.ECHO.S_ITS ---
[facility]---------+ [facility] +---------+ : : [id number] : [address] [place] : : : : [id number] : : : : Phone: [phone] Echocardiogram Report + + :Name: SILVIA SAUNDERS V Study Date: 08/24/2021 Height: 60 in : :[facility] ReadingLocation: Weight: 231 lb: : Gender: Female BSA: 2.0 m2 : :: 1950 Age: 71 yrs BP: 95/57 mmHg: :Reason For Study: Atrial fibrillation : :Ordering Physician: SEKOU, : :KAYLA Hunter Performed By: Jose Alejandro Veras : :Referring: KAYLA SAPP : + + Interpretation Summary The left ventricle is severely dilated. There is normal left ventricular wall thickness. The estimated left ventricular end diastolic volume is 180 ml. Left ventricular systolic function is severely reduced. The ejection fraction is estimated to be 20-25%. LVEF has severely decreased since prior echo study on 09/2011. There is severe global hypokinesis of the left ventricle. Diastolic function could not be accurately assessed due to unobtainable data. The right ventricle is severely dilated. Right ventricular systolic function is moderately reduced. The right ventricular systolic pressure is estimated to be at least 46 mmHg based on an estimated right atrial pressure of 8 mm Hg. The left atrium is moderately dilated. The right atrium is severely dilated. There is moderate mitral regurgitation. The calculated aortic valve area is 1.2 cm2. There is low flow aortic valvular gradient with probable mild to moderate aortic stenosis. sev ratio: 0.50 There is severe tricuspid regurgitation. The aortic root is normal size. Procedure: A two-dimensional transthoracic echocardiogram with color flow and Doppler was performed. The study quality was technically adequate. Comparison is made with the echocardiogram of 09/19/2011. A contrast injection of Definity was performed to improve assessment of LV function. Left Ventricle: The left ventricle is severely dilated. The estimated left ventricular end diastolic volume is 180 ml. There is normal left ventricular wall thickness. Left ventricular systolic function is severely reduced. The ejection fraction is estimated to be 20-25%. There is severe global hypokinesis of the left ventricle. Diastolic function could not be accurately assessed due to unobtainable data. Right Ventricle: The right ventricle is severely dilated. Right ventricular systolic function is moderately reduced. Atria: The left atrium is moderately dilated. The right atrium is severely dilated. The interatrial septum grossly appears intact with no obvious evidence for an atrial septal defect. Mitral Valve: There is mild mitral annular calcification. The mitral valve leaflets appear mildly thickened, but open well. There is moderate mitral regurgitation. Aortic Valve: The aortic valve is mildly calcified. There is mildly reduced leaflet mobility. There is low flow aortic valvular gradient with probable mild to moderate aortic stenosis. sev ratio: 0.50. The calculated aortic valve area is 1.2 cm2. There is trace aortic regurgitation. Tricuspid Valve: The tricuspid valve leaflets are thin and pliable. There is severe tricuspid regurgitation. The right ventricular systolic pressure is estimated to be at least 46 mmHg based on an estimated right atrial pressure of 8 mm Hg. Pulmonic Valve: The pulmonic valve is not well visualized. Great Vessels: The aortic root is normal size. The ascending aorta could not be visualized. The IVC is dilated (diameter is greater than 2.1 cm) yet it collapses greater than 50% with a sniff. This suggests a right atrial pressure of 8 mm Hg. Pericardium/ Pleura There is no pericardial effusion. There is no pleural effusion. MMode/2D Measurements & Calculations LVIDd: 5.4 cm LVOT diam: 1.8 cm LVIDs: 5.0 cm Ao root diam: 3.0 cm FS: 8.3 % IVSd: 0.91 cm LVPWd: 0.91 cm LV person. diameter/BSA (cm/m^2): 2.7 LV sys. diameter/BSA (cm/m^2): 2.5 LA A2 area: 26.1 cm2 RA long axis: 6.0 cm LA A4 area: 28.2 cm2 RA area: 28.0 cm2 LA length (vol): 6.8 cm RA vol: 110.7 ml LA vol: 92.2 ml RA : 55.8 ml/m2 LA vol index: 46.5 ml/m2 IVC diam: 2.5 cm TAPSE: 1.2 cm Doppler Measurements & Calculations Ao V2 max: 184.1 cm/sec LVOT Max Alek: 86.2 cm/sec Ao V2 mean: 130.8 cm/sec LV V1 max P.0 mmHg Ao max P.6 mmHg LV V1 VTI: 14.8 cm Ao mean P.5 mmHg LORA(I,D): 1.2 cm2 Ao V2 VTI: 29.4 cm LORA(V,D): 1.1 cm2 sev ratio: 0.50 LORA indexed to BSA (cm^2/m^2): 0.62 Med Peak E' Alek: 5.6 cm/sec TR max alek: 309.1 cm/sec TR max P.2 mmHg MR VTI: 115.8 cm SV(LVOT): 36.1 ml Reading Physician:12:08 PM
[2021-08-23] MEDS: FUROSEMIDE 40 MG/4 ML VIAL 20 MG IV (12:35)
[2021-08-23 13:03] LABS: COVID19 -Nasal RAPID Negative (Negative)
[2021-08-23 13:23] LABS: TSH w/ Reflex to FT4 1.27 uIU/mL (0.47-4.68)
[2021-08-23] MEDS: METOPROLOL IR 25 MG TABLET PO ×3 (14:10→23:56)
--- NOTE | 2021-08-23 14:24 | P.HP_ITS ---
History of Present Illness History of Present Illness Date Patient Seen: 08/23/21 Time Patient Seen: 14:24 Chief complaint: low blood sugar (98 this morning) Narrative: 71-year-old female admitted by the emergency department because of generalized weakness She has been feeling unwell for the last several days maybe a week plus. Feels just generally weak and not herself. She has been having spells like this off and on over the last several months actually they can last for several days. Sometimes become more acute an are improved after she eats something This morning she checked her blood sugar was on the low side she had something to eat then was transported to the hospital emergency department by her daughter. Blood sugar was even lower when checked in the hospital here. She denies any other specific symptoms. Denies any fever chills nausea vomiting change in bowels any urinary tract symptoms including pain burning or blood in the toilet. Denies any respiratory symptoms she has got long-term chronic lung disease and uses CPAP with oxygen at night but nothing particularly different with her breathing. No chest pain no sense of palpitations no syncope near syncope lightheadedness dizziness. No orthopnea PND no cough In the ER she was found to be in atrial fibrillation with borderline rapid ventricular response which would be a new diagnosis for her. Also had a abnormal UA consistent with an acute cystitis. Chest x-ray showed bilateral small effusions and maybe borderline evidence of pulmonary edema. Patient History Medical History Chronic gout Chronic renal failure, stage 3a (~11/23/20) Chronic venous stasis dermatitis of both lower extremities COPD (chronic obstructive pulmonary disease) Hyperlipidemia Hypertension Leg pain Low back pain Morbid obesity due to excess calories Nocturia more than twice per night Obesity with alveolar hypoventilation Obstructive sleep apnea of adult Osteoporosis Pulmonary hypertension Type 2 diabetes mellitus Surgical History S/P cataract extraction and insertion of intraocular lens (~12/2018) Status post dilation and curettage (08/18/11) Status post dilation and curettage (02/08/14) Status post dilation and curettage (07/19/13) Status post tubal ligation Family & Social History Family History Brother Heart disease Brother Heart disease Father Heart disease Mother Heart disease Sister Age: 75 Heart disease Diabetes mellitus Social History: household members none Prior Living Arrangements House Safety & Behavioral: Feels Safe in Current Yes Environment Been Physically Hurt or No Threatened By a Person Tobacco & Substance use: Smoking Status Never smoker alcohol intake current alcohol intake frequency holiday/special occasion Substance Use Type does not use Meds Home Medications and Allergies Home Medications Medication Instructions Recorded Confirmed Type FERROUS GLUCONATE (IRON) 325 mg PO BID ##90 07/30/11 08/23/21 Rx Resmed Airsense 10 CPAP #1 ea 06/24/18 08/23/21 History albuterol sulfate 90 mcg/actuation 2 puff inhalation DAILY PRN 04/28/19 08/23/21 History aerosol inhaler (Ventolin HFA) Adequate Ventilation Nidhi Next Contour Test Strips #250 ea 02/20/20 08/23/21 Rx Microlet Lancets #100 ea 12/25/20 08/23/21 Rx lisinopril 20 mg tablet 20 mg PO DAILY #90 tabs 12/25/20 08/23/21 Rx fenofibrate 160 mg tablet 160 mg PO DAILY #90 tabs 06/28/21 08/23/21 Rx letrozole 2.5 mg tablet 2.5 mg PO BID #180 tabs 06/28/21 08/23/21 Rx allopurinol 300 mg tablet 300 mg PO DAILY #90 tabs 08/02/21 08/23/21 Rx atorvastatin 20 mg tablet 20 mg PO DAILY #90 tabs 08/02/21 08/23/21 Rx glipizide 10 mg tablet 10 mg PO DAILY #90 tabs 08/02/21 08/23/21 Rx metformin 850 mg tablet 850 mg PO TID #270 tabs 08/02/21 08/23/21 Rx Allergies Allergy/AdvReac Type Severity Reaction Status Date / Time fluticasone Allergy Severe FACIAL Verified 08/23/21 10:09 [From Advair Diskus] SWELLING AND TURNS RED salmeterol Allergy Severe FACIAL Verified 08/23/21 10:09 [From Advair Diskus] SWELLING AND TURNS RED albuterol Allergy Intermediate FACE Verified 08/23/21 10:09 SWELLING NO SOB adhesive Allergy Mild MEDICAL Verified 08/23/21 10:09 TAPE LEAVES RED RASH Review of Systems Review of Systems ROS: Yes All systems reviewed with the patient and are negative except as otherwise documented Exam Vital Signs (past 8 hours): - 08/23/21 10:07 08/23/21 11:44 08/23/21 10:38 Temperature 97.7 F Pulse Rate 110 H Respiratory Rate 16 30 H Blood Pressure 123/64 Pulse Oximetry 95 96 95 Oxygen Delivery Method Room Air Nasal Cannula Room Air Oxygen Flow Rate 2 08/23/21 11:00 08/23/21 11:00 08/23/21 11:30 Temperature Pulse Rate 110 H 132 H Respiratory Rate 27 H 32 H Blood Pressure 117/65 Pulse Oximetry 97 Oxygen Delivery Method Room Air Oxygen Flow Rate 08/23/21 11:50 08/23/21 11:50 08/23/21 12:00 Temperature Pulse Rate 118 H Respiratory Rate 23 Blood Pressure 121/73 129/69 Pulse Oximetry 95 Oxygen Delivery Method Nasal Cannula Oxygen Flow Rate 2 08/23/21 12:00 08/23/21 12:08 08/23/21 12:08 Temperature Pulse Rate 114 H 109 H Respiratory Rate 18 18 Blood Pressure 104/11 L Pulse Oximetry 95 95 Oxygen Delivery Method Oxygen Flow Rate 08/23/21 12:10 08/23/21 12:10 08/23/21 12:25 Temperature Pulse Rate 107 H 104 H Respiratory Rate 21 25 H Blood Pressure 108/71 Pulse Oximetry 95 95 Oxygen Delivery Method Oxygen Flow Rate 08/23/21 12:25 08/23/21 12:30 08/23/21 12:30 Temperature Pulse Rate 105 H Respiratory Rate 20 Blood Pressure 97/54 L 99/57 L Pulse Oximetry 97 Oxygen Delivery Method Oxygen Flow Rate Oxygen Delivery Method Nasal Cannula Oxygen Flow Rate 2 Narrative Exam Narrative: Elderly female in no obvious distress sitting in a bedside chair able to speak in full sentences HEENT-unremarkable, normocephalic atraumatic PERRLA EOMs intact Neck-no lymphadenopathy no bruits Lungs-diminished breath sounds at the bases with some small degree of overlying crackles, somewhat diminished breath sounds overall but no wheezes or crackles otherwise Heart-irregular no murmur Abdomen-obese positive bowel tones nontender Extremities-no clubbing or cyanosis Neuro-alert orient x3 no cranial nerve defects gait not tested, no abnormal reflexes Objective Labs Result Diagrams: 08/26/21 06:50 08/26/21 06:50 Labs: Laboratory Results - last 24 hr 08/23/21 08/23/21 08/23/21 10:25 10:25 10:25 WBC 7.6 RBC 4.23 Hgb 11.6 L Hct 37.7 MCV 89.3 MCH 27.5 MCHC 30.8 RDW 17.3 H Plt Count 212 Neut % (Auto) 71.9 Lymph % (Auto) 18.8 L Ashley % (Auto) 6.8 Eos % (Auto) 1.8 L Baso % (Auto) 0.7 Neut # (Auto) 5400 Lymph # (Auto) 1400 Ashley # (Auto) 500 Eos # (Auto) 100 Baso # (Auto) 100 PT 11.6 INR 1.0 APTT 32 D-Dimer Sodium 142 Potassium 4.6 Chloride 114 H Carbon Dioxide 19 L BUN 24 H Creatinine 1.34 H Estimated GFR 42 L BUN/Creatinine Ratio 17.9 Glucose 63 L Lactate Calcium 9.5 Magnesium 1.9 Total Bilirubin 0.6 AST 29 ALT 14 Alkaline Phosphatase 65 Total Creatine Kinase 39 CK-MB (CK-2) TNP CK-MB (CK-2) Rel Index TNP Troponin I 0.027 NT-Pro-B Natriuret Pep Total Protein 7.6 Albumin 4.2 Globulin 3.4 Albumin/Globulin Ratio 1.2 Lipase 170 Procalcitonin TSH Urine Color Urine Appearance Urine pH Ur Specific [place] Urine Protein Urine Glucose (UA) Urine Ketones Urine Occult Blood Urine Nitrate Urine Bilirubin Urine Urobilinogen Ur Leukocyte Esterase Urine RBC Urine WBC Ur Squamous Epith Cells Urine Bacteria Ur Culture Indicated? SARS-CoV-2 (PCR) 08/23/21 08/23/21 08/23/21 10:25 10:25 10:25 WBC RBC Hgb Hct MCV MCH MCHC RDW Plt Count Neut % (Auto) Lymph % (Auto) Ashley % (Auto) Eos % (Auto) Baso % (Auto) Neut # (Auto) Lymph # (Auto) Ashley # (Auto) Eos # (Auto) Baso # (Auto) PT INR APTT D-Dimer Sodium Potassium Chloride Carbon Dioxide BUN Creatinine Estimated GFR BUN/Creatinine Ratio Glucose Lactate 1.6 Calcium Magnesium Total Bilirubin AST ALT Alkaline Phosphatase Total Creatine Kinase CK-MB (CK-2) CK-MB (CK-2) Rel Index Troponin I NT-Pro-B Natriuret Pep Total Protein Albumin Globulin Albumin/Globulin Ratio Lipase Procalcitonin 0.08 TSH 1.27 Urine Color Urine Appearance Urine pH Ur Specific [place] Urine Protein Urine Glucose (UA) Urine Ketones Urine Occult Blood Urine Nitrate Urine Bilirubin Urine Urobilinogen Ur Leukocyte Esterase Urine RBC Urine WBC Ur Squamous Epith Cells Urine Bacteria Ur Culture Indicated? SARS-CoV-2 (PCR) 08/23/21 08/23/21 08/23/21 10:45 10:49 11:47 WBC RBC Hgb Hct MCV MCH MCHC RDW Plt Count Neut % (Auto) Lymph % (Auto) Ashley % (Auto) Eos % (Auto) Baso % (Auto) Neut # (Auto) Lymph # (Auto) Ashley # (Auto) Eos # (Auto) Baso # (Auto) PT INR APTT D-Dimer 212 Sodium Potassium Chloride Carbon Dioxide BUN Creatinine Estimated GFR BUN/Creatinine Ratio Glucose Lactate Calcium Magnesium Total Bilirubin AST ALT Alkaline Phosphatase Total Creatine Kinase CK-MB (CK-2) CK-MB (CK-2) Rel Index Troponin I NT-Pro-B Natriuret Pep 4940 H Total Protein Albumin Globulin Albumin/Globulin Ratio Lipase Procalcitonin TSH Urine Color Yellow Urine Appearance Cloudy Urine pH 6.0 Ur Specific [place] 1.015 Urine Protein 2+ H Urine Glucose (UA) Negative Urine Ketones Negative Urine Occult Blood 3+ H Urine Nitrate Positive H Urine Bilirubin Negative Urine Urobilinogen 0.2 Ur Leukocyte Esterase 3+ H Urine RBC 30-100/hpf H Urine WBC >100/hpf H Ur Squamous Epith Cells 1-5 /hpf Urine Bacteria Many (>30) H Ur Culture Indicated? Specimen cultured SARS-CoV-2 (PCR) 08/23/21 12:33 WBC RBC Hgb Hct MCV MCH MCHC RDW Plt Count Neut % (Auto) Lymph % (Auto) Ashley % (Auto) Eos % (Auto) Baso % (Auto) Neut # (Auto) Lymph # (Auto) Ashley # (Auto) Eos # (Auto) Baso # (Auto) PT INR APTT D-Dimer Sodium Potassium Chloride Carbon Dioxide BUN Creatinine Estimated GFR BUN/Creatinine Ratio Glucose Lactate Calcium Magnesium Total Bilirubin AST ALT Alkaline Phosphatase Total Creatine Kinase CK-MB (CK-2) CK-MB (CK-2) Rel Index Troponin I NT-Pro-B Natriuret Pep Total Protein Albumin Globulin Albumin/Globulin Ratio Lipase Procalcitonin TSH Urine Color Urine Appearance Urine pH Ur Specific [place] Urine Protein Urine Glucose (UA) Urine Ketones Urine Occult Blood Urine Nitrate Urine Bilirubin Urine Urobilinogen Ur Leukocyte Esterase Urine RBC Urine WBC Ur Squamous Epith Cells Urine Bacteria Ur Culture Indicated? SARS-CoV-2 (PCR) Negative Assessment & Plan Assessment & Plan narrative: 1. Hypoglycemia-patient with borderline hypoglycemia perhaps as a component of her overall presentation and symptoms. She has had a very normal hemoglobin A1c on multiple occasions and is on aggressive doses of oral hypoglycemic agents. She has been somewhat resistant to reducing her medication regimen in the past. I think at this point she is probably on too much in the way of hypoglycemics and probably needs to have her glipizide discontinued upon discharge. I am holding both her metformin and her glipizide for now and liberalizing her diet at least for the first 12-24 hours and then perhaps return to a carbohydrate consistent diet 2. New onset atrial fibrillation-patient with AFib as a new diagnosis. This is probably also component of her presenting symptoms. Troponin was negative no evidence of ischemia on ECG. Continue to monitor for symptoms but needs rate control. Metoprolol was given parenterally in the ER I will continue that as an oral medication while holding her usual antihypertensive medication here in the hospital. Will obtain echocardiography to evaluate for potential etiologies behind the atrial fibrillation. I am not anticipating anticoagulation at this time but that would be something for the future as well for stroke risk reduction and I discussed that briefly with the patient. COPD is probably the most likely culprit behind her atrial fibrillation. D-dimer was negative in she is absolutely no symptoms to suggest pulmonary embolism etcetera so I do not believe she needs additional testing in that regard. 3. Acute congestive heart failure-obtain echocardiogram to determine whether not this is systolic based. She has received dose of Lasix in the ER. She is not hypoxic so I do not believe she needs additional doses of diuretics at this time anyway. Again, echocardiography will be performed as above 4. COPD-patient longstanding COPD and uses oxygen sort of as needed but certai nly at nighttime with her CPAP for her sleep apnea. She is actually not hypoxic and asymptomatic from a respiratory standpoint. I doubt very much whether there is anything more going on but the COPD may well be an etiology for atrial fibrillation. 5. UTI-patient with evidence of a UTI based on dipstick urinalysis performed from an ER sample. She received a dose of Rocephin in the ER. Will continue that until microbiology/culture results are available to better tailor antibiotics. Bit unusual the patient would have hypoglycemia in the face of an active infection and she is completely asymptomatic so she probably should be fine with an oral antibiotic was we have identified organism 6. Chronic renal failure stage 3 a-patient's numbers are at baseline 7. Hypertension-as above I am going to begin treatment with metoprolol as immediate release formation and discontinue her lisinopril. Her antihypertensive regimen will need to be adjusted based on her clinical response during this hospitalization 8. Code status-patient requests full code in the event of a sudden cardiac or respiratory arrest which is not in any way shape or form anticipated at this time 9. VTE prophylaxis-patient would benefit from Lovenox which has been ordered Overall patient has multiple minor but active medical issues as noted above. Hopefully she can be discharged sooner rather than later but will need some medication adjustment close outpatient follow-up. She clearly would benefit from inpatient hospitalization will likely be in the hospital greater than 48 hours to include 2 separate midnights Time Spent With Patient Critical Care time: I spent a total of [] minutes of critical care time on this patient's care today; this time is exclusive of procedural time. Quality VTE Deep Vein Thrombosis/Pulmonary Embolism Present on Admission: No
--- NOTE | 2021-08-23 14:45 | PT.IIE ---
Surgical History (Last Reviewed 08/23/21 @ 14:25 by Germán Gloria MD) S/P cataract extraction and insertion of intraocular lens (~12/2018) Status post dilation and curettage (08/18/11) Status post dilation and curettage (02/08/14) Status post dilation and curettage (07/19/13) Status post tubal ligation Medical History (Last Reviewed 08/23/21 @ 14:25 by Germán Gloria MD) Chronic gout Chronic renal failure, stage 3a (~11/23/20) Chronic venous stasis dermatitis of both lower extremities COPD (chronic obstructive pulmonary disease) Hyperlipidemia Hypertension Leg pain Low back pain Morbid obesity due to excess calories Nocturia more than twice per night Obesity with alveolar hypoventilation Obstructive sleep apnea of adult Osteoporosis Pulmonary hypertension Type 2 diabetes mellitus Physical Therapy Inpatient Evaluation/Re-Eval M1 PT/OT-IP Prior Functional Status Start: 08/23/21 15:13 Freq: NEEDED Status: Active Protocol: Document 08/23/21 14:45 AB (Rec: 08/23/21 15:28 AB [id number]) Medical Review Prior Functional Status Medical History Reviewed Yes Communication able to make needs known Mobility and Gait pt stated that she is modified independent with all mobilities and ambulates without AD Social History Household Members none Living Arrangements Apartment/Condo Number of Floors (Floors) One Floor Number of Stairs To Enter/Railing? pt lives at [facility] no steps to enter Home Environment High Toilet,Tub/Shower Home Equipment Four Wheel Walker,Tub Transfer Bench,Hand Held Shower,Grab Bars In Shower Additional Social History Comment stated that she has neighbors that checks on her daughter lives 1 hour away from pt but drives pt to where she needs to go has a documentation liaison that comes in twice month to assist with house chores M2 PT-IP Current Condition Start: 08/23/21 15:13 Freq: NEEDED Status: Active Protocol: Document 08/23/21 14:45 AB (Rec: 08/23/21 15:28 AB [id number]) Physical Therapy Current Condition Current Condition Evaluation Date 08/23/21 Treatment Diagnosis hypoglycemia; a-fib; difficulty in walking Onset Date 08/23/21 M3 PT-IP Subjective Start: 08/23/21 15:13 Freq: NEEDED Status: Active Protocol: Document 08/23/21 14:45 AB (Rec: 08/23/21 15:28 AB [id number]) Subjective Physical Therapy Visit Type Type Initial Evaluation Visit Start Time 14:45 Visit Stop Time 15:11 Total Visit Minutes 26 Number of TRACTOR DRILL OPERATOR Visits 0 Physical Therapy Visit Comments Patient Comments agreeable to do PT M4 PT-IP Mobility and Gait Start: 08/23/21 15:13 Freq: NEEDED Status: Active Protocol: Document 08/23/21 14:45 AB (Rec: 08/23/21 15:28 AB [id number]) PT-Bed Mobility Assessment Supine to Sit Supine to Sit Standby Assistance Sit to Supine Sit to Supine Standby Assistance,Bedrails PT-Transfer Assessment Sit to and From Stand Sit to and from Stand Standby Assistance Equipment Transfer Assistive Device None Orthotic/Prosthetic Devices or Brace: No Transfers Transfer Destination Bed Transfer Technique ambulated Transfer Ability Level of Assist Contact Guard Assistance,1 Person Assistance,Use of Upper Extremities Comments Mobility Comments pt sitting on chair. daughter in room with pt. BP in sittin/65 WA: 94. completed sit to stand SBA and ambulated to EOB ~ 12 ft CGA. tends to hold on to counter/ foot of the bed for support. presents with unsteady waddling gait. (+) SOB O2 sat 99% WA: 105. completed sit to supine SBA with pt climbing into the bed. completed supine to sit SBA with use of bed rail. requires frequent rest breaks with (+) SOB but O2 sat 97-99% . WA: 102-105. pt ambulated back to chair CGA and continues to be unsteady. pt refused further activity. positioned pt on the chair. call light and table placed within reach. educated pt regarding safety and use of FWW at this time for transfers and ambulation and pt agreed. Left pt with daughter and pharmacist in room. Gait Assessment Gait Gait Assistance Required: Contact Guard Assist Distance (Feet) 12 Able to Maintain Weight Bearing Status Yes During Gait Assistive Devices Assistive Device None Orthotic/Prosthetic Devices or Brace: No Gait Deviations General Gait Pattern Decreased Stride Length, Decreased Feet Clearance,Step- to Gait Factors Limiting Gait Function Factors Limiting Gait Function Decreased Activity Tolerance, Decreased Strength,Poor Balance,Poor Safety Awareness, Respiratory Distress PT-Balance Assessment Sitting Balance and Reactions Static Sitting Balance Ability Good Dynamic Sitting Balance Ability Good Standing Balance and Reactions Static Standing Balance Ability Fair Dynamic Standing Balance Ability Fair Device Used without AD M5 PT-IP Objective Assessments Start: 08/23/21 15:13 Freq: NEEDED Status: Active Protocol: Document 08/23/21 14:45 AB (Rec: 08/23/21 15:28 AB [id number]) Orientation Orientation/Cognition Level of Alertness Alert Orientation Name,Place,Situation Language Function Ability No Deficits Noted Safety Awareness Decreased Safety Awareness Memory Description No Deficits Noted Gross Range of Motion Lower Extremity ROM Assessment Within Functional Limits Strength Lower Extremity Strength Assessment Right Impaired Hip 4-/5 Knee 3+/5 Sensation Assessment Sensation Gross Sensation WNL Muscle Tone Muscle Tone WNL Yes Other Assessments Other Other Assessments (+) BLE edema M6 PT-IP Treatment Start: 08/23/21 15:13 Freq: NEEDED Status: Active Protocol: Document 08/23/21 14:45 AB (Rec: 08/23/21 15:29 AB [id number]) Physical Therapy Treatment Education Education Provided Safety M7 PT-IP Assessment and Plan Start: 08/23/21 15:13 Freq: NEEDED Status: Active Protocol: Document 08/23/21 14:45 AB (Rec: 08/23/21 15:28 AB [id number]) PT Summary Assessment and Plan Potential Rehabilitation Potential Fair Status of Condition at Evaluation Evolving Summary Impairments Pain,ROM,Strength,Balance, Coordination,Sensation,Tone, Cognition,Bed Mobility, Transfers,Gait,Activity Tolerance Assessment Summary pt requiring CGA with ambulation without AD but with unsteady gait and has (+) SOB and unable to tolerate much ambulation or activities. Recommending use of FWW at this time and will progress when appropriate. Will continue PT to improve overall strength and activity tolerance to progress functional independence. will continue to assess progress. pt will benefit from outpt cardiopulmonary rehab. Goals Bed Mobility Goal Independent Transfer Goal Independent,Front Wheeled Walker,Four Wheeled Walker Gait Goal Independent,Front Wheel Walker ,Four Wheel Walker Gait Distance 200 Other Goals improve transfers and ambulation without AD SBA 200 ft Days to Meet Goals 10 Frequency of Treatment Frequency Of Treatment Once a Day Treatment Plan Physical Therapy Treatment Plan Bed Mobility Training,Transfer Training,Gait Training, Therapeutic Exercise,Balance Retraining,Discharge Planning, Neuromuscular Re-ed, Coordination Retraining Recommendations To Nursing Amount of Assist Needed 1 Person Assist Discharge Recommendations PT Discharge Recommendations Home with Assistance, Outpatient PT Equipment Needed for Home Before FWW if not safe with 4WW/ Discharge without AD Transportation Needs at Discharge Private Vehicle
[2021-08-23] MEDS: LETROZOLE 2.5 MG TABLET PO (21:16)
[2021-08-23] MEDS: SODIUM CHLORIDE 0.9% FLUSH 10 ML IV (21:16)
--- NOTE | 2021-08-23 21:52 | PC.NURSE ---
Addendum entered by Megan Carreno R.N. 08/24/21 04:37: Patient reports increased difficulty breathing stating she has an ache in her chest when taking a deep breath. BP 104/67 and RA sat of 94%; increased oxygen to 2L/min. Original Note: Patient is alert and oriented. Breath sounds diminished throughout and has hx of COPD with use of home oxygen. Currently on oxygen at 1.5L/min with sat of 95%. Does get SOB with exertion and is unable to lie flat in bed. HRR but tachy; telemetry reading was ST w/BBB. Denies nausea. BT present and abdomen is large/soft. Is able to move herself and walks to bathroom with SBA; slightly weak. Denied any pain. Does state she has chronic numbness in bilateral feet and fingers of both hands. Applied bilateral calf SCD's. Fall risk score is moderate; patient calls appropriately.
[2021-08-24] VITALS (10 sets, daily range): BP systolic 98–125; BP diastolic 62–78; PULSE 82–106; RESP 18–26; TEMP 36.1–36.8; O2SAT 94–99
[2021-08-24 06:02] LABS: BUN Creatinine Ratio 19.3 (6-22); Blood Urea Nitrogen 33 mg/dL (7-17); Calcium 9.2 mg/dL (8.4-10.2); Carbon Dioxide 19 mmol/L (22-32); Chloride 111 mmol/L (98-107); Estimated Glomerular Filt Rate 31 mL/min (>60); Glucose 112 mg/dL (80-110); HEMOLYSIS < 15 (0-50); Magnesium 2.1 mg/dL (1.6-2.3); Potassium 5.3 mmol/L (3.4-5.1); Sodium 139 mmol/L (137-145)
[2021-08-24] MEDS: METOPROLOL IR 25 MG TABLET PO ×3 (06:40→17:17)
--- NOTE | 2021-08-24 09:25 | P.PN_ITS ---
Subjective Subjective Date Patient Seen: 08/24/21 Time Patient Seen: 09:26 Interval history: Patient had an uneventful night but still short of breath. Denies chest pain but did have some general pain and after Tylenol is feeling better now. Normally uses a nasal pillow for CPAP at home, but had to use a mask last night as that was all that the hospital had. Thus, did not sleep very well and ended up upright in her chair as she could breathe better in that position. Continues on her usual oxygen level, 1.5-2 L. feeling weak. Appetite is at baseline, mary es any nausea or vomiting. She has only been ambulating up to the bathroom. IV is infiltrated. Exam Vital Signs (past 8 hours): - 08/24/21 04:06 08/24/21 04:40 08/24/21 07:52 Temperature 97.8 F Pulse Rate 96 H Respiratory Rate 18 Blood Pressure 98/62 104/67 Pulse Oximetry 94 Oxygen Delivery Method Nasal Cannula Oxygen Flow Rate 1.5 08/24/21 07:52 08/24/21 08:06 08/24/21 08:42 Temperature 97.3 F L Pulse Rate 105 H Respiratory Rate 20 Blood Pressure 116/73 Pulse Oximetry 97 96 98 Oxygen Delivery Method Nasal Cannula Nasal Cannula Oxygen Flow Rate 2 1.5 2 Oxygen Delivery Method Nasal Cannula Oxygen Flow Rate 2 Narrative Exam Narrative: GENERAL: Alert and oriented, appearing stated age and in no acute distress. HEENT: Head normocephalic/atraumatic. Extraocular movements intact. LUNGS: Pursed lip breathing, diminished inspiratory effort with no audible wheezes, rhonchi, or rales, oxygen cannula in place. CV: Irregularly irregular, 2/5 systolic murmur, no rubs or gallops. ABDOMEN: Morbidly obese, non-tender, non-distended, no organomegaly. Positive bowel sounds. EXTREMITIES: 2+ non-pitting edema to level of mid-shins. SCDs in place. No clubbing or cyanosis. NEURO: Cranial nerves II through XII grossly intact, no focal deficits. PSYCH: Alert and oriented x 3. SKIN: IV in left forearm is infiltrated with mild erythema and indurated lump at IV insertion site. Objective Labs Result Diagrams: 08/23/21 10:25 08/24/21 05:19 Labs: Laboratory Results - last 24 hr 08/23/21 08/23/21 08/23/21 10:25 10:25 10:25 WBC 7.6 RBC 4.23 Hgb 11.6 L Hct 37.7 MCV 89.3 MCH 27.5 MCHC 30.8 RDW 17.3 H Plt Count 212 Neut % (Auto) 71.9 Lymph % (Auto) 18.8 L Saline % (Auto) 6.8 Eos % (Auto) 1.8 L Baso % (Auto) 0.7 Neut # (Auto) 5400 Lymph # (Auto) 1400 Saline # (Auto) 500 Eos # (Auto) 100 Baso # (Auto) 100 PT 11.6 INR 1.0 APTT 32 D-Dimer Sodium 142 Potassium 4.6 Chloride 114 H Carbon Dioxide 19 L BUN 24 H Creatinine 1.34 H Estimated GFR 42 L BUN/Creatinine Ratio 17.9 Glucose 63 L Lactate Calcium 9.5 Magnesium 1.9 Total Bilirubin 0.6 AST 29 ALT 14 Alkaline Phosphatase 65 Total Creatine Kinase 39 CK-MB (CK-2) TNP CK-MB (CK-2) Rel Index TNP Troponin I 0.027 NT-Pro-B Natriuret Pep Total Protein 7.6 Albumin 4.2 Globulin 3.4 Albumin/Globulin Ratio 1.2 Lipase 170 Procalcitonin TSH Urine Color Urine Appearance Urine pH Ur Specific [place] Urine Protein Urine Glucose (UA) Urine Ketones Urine Occult Blood Urine Nitrate Urine Bilirubin Urine Urobilinogen Ur Leukocyte Esterase Urine RBC Urine WBC Ur Squamous Epith Cells Urine Bacteria Ur Culture Indicated? SARS-CoV-2 (PCR) 08/23/21 08/23/21 08/23/21 10:25 10:25 10:25 WBC RBC Hgb Hct MCV MCH MCHC RDW Plt Count Neut % (Auto) Lymph % (Auto) Saline % (Auto) Eos % (Auto) Baso % (Auto) Neut # (Auto) Lymph # (Auto) Saline # (Auto) Eos # (Auto) Baso # (Auto) PT INR APTT D-Dimer Sodium Potassium Chloride Carbon Dioxide BUN Creatinine Estimated GFR BUN/Creatinine Ratio Glucose Lactate 1.6 Calcium Magnesium Total Bilirubin AST ALT Alkaline Phosphatase Total Creatine Kinase CK-MB (CK-2) CK-MB (CK-2) Rel Index Troponin I NT-Pro-B Natriuret Pep Total Protein Albumin Globulin Albumin/Globulin Ratio Lipase Procalcitonin 0.08 TSH 1.27 Urine Color Urine Appearance Urine pH Ur Specific [place] Urine Protein Urine Glucose (UA) Urine Ketones Urine Occult Blood Urine Nitrate Urine Bilirubin Urine Urobilinogen Ur Leukocyte Esterase Urine RBC Urine WBC Ur Squamous Epith Cells Urine Bacteria Ur Culture Indicated? SARS-CoV-2 (PCR) 08/23/21 08/23/21 08/23/21 10:45 10:49 11:47 WBC RBC Hgb Hct MCV MCH MCHC RDW Plt Count Neut % (Auto) Lymph % (Auto) Saline % (Auto) Eos % (Auto) Baso % (Auto) Neut # (Auto) Lymph # (Auto) Saline # (Auto) Eos # (Auto) Baso # (Auto) PT INR APTT D-Dimer 212 Sodium Potassium Chloride Carbon Dioxide BUN Creatinine Estimated GFR BUN/Creatinine Ratio Glucose Lactate Calcium Magnesium Total Bilirubin AST ALT Alkaline Phosphatase Total Creatine Kinase CK-MB (CK-2) CK-MB (CK-2) Rel Index Troponin I NT-Pro-B Natriuret Pep 4940 H Total Protein Albumin Globulin Albumin/Globulin Ratio Lipase Procalcitonin TSH Urine Color Yellow Urine Appearance Cloudy Urine pH 6.0 Ur Specific [place] 1.015 Urine Protein 2+ H Urine Glucose (UA) Negative Urine Ketones Negative Urine Occult Blood 3+ H Urine Nitrate Positive H Urine Bilirubin Negative Urine Urobilinogen 0.2 Ur Leukocyte Esterase 3+ H Urine RBC 30-100/hpf H Urine WBC >100/hpf H Ur Squamous Epith Cells 1-5 /hpf Urine Bacteria Many (>30) H Ur Culture Indicated? Specimen cultured SARS-CoV-2 (PCR) 08/23/21 08/24/21 12:33 05:19 WBC RBC Hgb Hct MCV MCH MCHC RDW Plt Count Neut % (Auto) Lymph % (Auto) Saline % (Auto) Eos % (Auto) Baso % (Auto) Neut # (Auto) Lymph # (Auto) Saline # (Auto) Eos # (Auto) Baso # (Auto) PT INR APTT D-Dimer Sodium 139 Potassium 5.3 H Chloride 111 H Carbon Dioxide 19 L BUN 33 H Creatinine 1.71 H Estimated GFR 31 L BUN/Creatinine Ratio 19.3 Glucose 112 H Lactate Calcium 9.2 Magnesium 2.1 Total Bilirubin AST ALT Alkaline Phosphatase Total Creatine Kinase CK-MB (CK-2) CK-MB (CK-2) Rel Index Troponin I NT-Pro-B Natriuret Pep Total Protein Albumin Globulin Albumin/Globulin Ratio Lipase Procalcitonin TSH Urine Color Urine Appearance Urine pH Ur Specific [place] Urine Protein Urine Glucose (UA) Urine Ketones Urine Occult Blood Urine Nitrate Urine Bilirubin Urine Urobilinogen Ur Leukocyte Esterase Urine RBC Urine WBC Ur Squamous Epith Cells Urine Bacteria Ur Culture Indicated? SARS-CoV-2 (PCR) Negative [facility] Medical History Chronic gout Chronic renal failure, stage 3a (~11/23/20) Chronic venous stasis dermatitis of both lower extremities COPD (chronic obstructive pulmonary disease) Hyperlipidemia Hypertension Leg pain Low back pain Morbid obesity due to excess calories Nocturia more than twice per night Obesity with alveolar hypoventilation Obstructive sleep apnea of adult Osteoporosis Pulmonary hypertension Type 2 diabetes mellitus Surgical History S/P cataract extraction and insertion of intraocular lens (~12/2018) Status post dilation and curettage (08/18/11) Status post dilation and curettage (02/08/14) Status post dilation and curettage (07/19/13) Status post tubal ligation Family History Brother Heart disease Brother Heart disease Father Heart disease Mother Heart disease Sister Age: 75 Heart disease Diabetes mellitus Social History marital status: details: with 4 adult daughters household members: none Smoking Status: Never smoker alcohol intake: current substance use type: does not use Assessment & Plan Assessment & Plan narrative: 1.? Hypoglycemia, resolved off metformin and glipizide Plan: Continue carb-consistent diet. Will restart metformin. Glipizide being held, will be discontinued upon discharge. 2. Atrial fibrillation, new, type unknown Plan: Patient is now rate-controlled with a HR in the 80s but hypotensive with the addition of metoprolol. Normally takes lisinopril for hypertension but that was discontinued yesterday in the setting of new atrial fibrillation. Will follow vital signs closely. Patient has been in persistent atrial fibrillation for more than 24 hours, [id number] score 5, will stop lovenox and start xarelto 20 mg PO qd. May need antiarrhythmic to reduce exacerbating HFrEF and risk of readmission. Will need outpatient cardiology consult. Continue telemetry. At risk for OH/CVA. 3. HFrEF, acute on chronic -Echo today shows severely reduced EF from last last study, now 20-25%. There is severe global hypokinesis of left ventricle, severe dilation of the left ventricle, severe dilation of the right ventricle, and moderate dilation of the left atrium. There is severe tricuspid regurgitation. CXR yesterday shows bilateral pleural effusions, right greater than left. Plan: Heart failure likely contributing to atrial fibrillation. Will focus on reducing preload with Lasix. Admission BNP 4940, now 7950. Status post Lasix x1 in the ED. Currently 99% on 2 L. Clinically, no crackles but patient is breathing in a very shallow manner and using accessory muscles. Some peripheral edema. Will diurese now with 40 mg of IV lasix and then give 300 cc of LR bolus to not further exacerbate her kidney function. Hopefully, the bolus will stay intravascular and provide renal protection while the lasix clears some of the third-spaced fluid, especially in her pulmonary spaces. At risk for OH/CVA. Please see #1. 4. COPD, severe. Uses oxygen as needed and at night with CPAP, walt contributing to atrial fibrillation Plan: Continue home medications and oxygen. Will also add prednisone 40 mg PO qd to cover any developing exacerbation of her COPD. Between her UTI, new CPAP machine, worsening heart failure, and poor sleep during inpatient stay, she may quickly fall into an exacerbation. Steroids will also help improve her hypogly cemia. 5. [facility] hypertension, chronic Plan: Noted on patients medical history, do not have access to her outpatient notes but may benefit from outpatient pulmonology consult if not already ada montesinos. 6. UTI, acute Plan: Continue rocephin. Urine culture pending. 7. Chronic renal failure stage 3a, worsened today likely secondary to acute infection and lasix Plan: Will continue to trend labs and provide supportive treatment, please see above. 8. Hyperkalemia, acute. Suspect that this will be transient due to her electrolytes shifting around with her changes in glucose levels. In addition, she is in acute on chronic renal failure right now and has a urinary tract infection. Potassium levels are slightly above normal, do not anticipate cardiac changes due to this. Plan: Treating other underlying diseases and will trend BMP. Restarting metformin today. 9. Hypertension, chronic Plan: Please see #1. 10. PAU, chronic Plan: Will switch to home nasal pillow tonight, hopefully, she will be able to sleep supine and rest. 11. Infiltrated IV Plan: Nursing to change IV site. Code: Full DVT: Xarelto FEN: Carb consistent, po fluids COVID: negative Dispo: Greater than 2 midnights. Patient is under inpatient status due to severity of presenting symptoms, complexity of treatment plan, and risk of adverse event. Time Spent With Patient Critical Care time: Greater than 70 minutes total time was spent on day of service, evaluating the patient on the floor, including examining the patient, discussing clinical course with clinical and nursing staff, reviewing clinical course in the compute r, preparing documentation and writing orders for continued management of care, discussing status with family as appropriate, reviewing plans for the next 24 hours with both patient/family and nursing staff as appropriate. Scores CHADS-VASc Congestive heart failure: yes Hypertension: yes Age 75 years or older: no Diabetes mellitus: yes Stroke, TIA, or TE: no Vascular disease: no Age 65 to 74 years: yes Sex category (female): Female CHADS-VASc Score: 5 Quality VTE Deep Vein Thrombosis/Pulmonary Embolism Present on Admission: No
[2021-08-24] MEDS: LETROZOLE 2.5 MG TABLET PO ×2 (09:35→20:40)
[2021-08-24] MEDS: allopurinoL 300 MG TABLET PO (09:35)
[2021-08-24] MEDS: ATORVASTATIN 20 MG TABLET PO (09:35)
[2021-08-24] MEDS: SODIUM CHLORIDE 0.9% FLUSH 10 ML IV ×3 (09:35→22:03)
[2021-08-24] MEDS: FENOFIBRATE, MICRONIZED 67 MG CAPSULE 201 MG PO (09:35)
[2021-08-24 10:05] LABS: NT-proBNP (BNP-Adult 18+) 7950 pg/mL (<125)
--- NOTE | 2021-08-24 10:32 | CM.DANOTE ---
Initial Discharge Planning Assessment Case received, EMR reviewed and met with patient. Introduced self and role. 71 year old female admitted 08/23/[address] Gloria. PCP: Dr Gloria Payer: [facility] Patient was admitted to ED with generalized weakness. She is diagnosed with low blood sugar, UTI, CHF, and a new diagnosis of atrial fib. She suffers from CKD, chronic COPD and is on CPAP for sleep apnea. Patient lives alone at [facility] in [place]. She has 2 daughters that she states are helpful and are able to transport her. Her daughter Varinder Martinez lives on [address] (phone: [phone]). The other daughter, Ricky lives in [facility]. She has a cyber defense analyst Zoe Gonzales who is also helpful with driving and errands. Patient states she just had an echocardiogram prior to my arrival in room. Patient was seen by PT yesterday and they are recommending outpatient PT. She states she is independent in ADLs and ambulates without an AD. She states that she has a 4 wheel walker available if needs. P: Patient wishes to return home with her previous home arrangement with assistance as needed. (PT recommends to be discharged with FWW if is not safe with 4WW.). Outpatient P.T. Raine Cutler RN/Post Form Remover Discharge Planning/Care Management CM Discharge Assessment Start: 08/24/21 10:15 Freq: Status: Active Protocol: Document 08/24/21 10:16 (Rec: 08/24/21 10:31 [id number]) Discharge Planning Assessment Assigned Teacher Instrumental Aretha Cutler DCP Advance Directives? No History Provided By Patient,Medical Record Prior Living Arrangements Apartment/Condo Household Members none Comment lives alone in affordable housing in [facility]. Neal lives on [facility] . Type of transporation used prior to Relies on Others admit Independent with ADL's Yes Is patient alert and oriented? Yes Needs Assistance With Home Chores / Shopping Caregiver for Another No DME Already Rented / Owned FWW / Walker Comment states she has available but doesn't use. Patient/Family Preference OP PT Therapy Comment sx need to clear Discharge Plan Home Transportation Arrangement Patient states either of her 2 daughters or her cyber defense analyst can provide her a ride home. Whiteboard Updated in Patient Room with Yes name and ext. # of Teacher Instrumental Review Status In Process Next Review Type Continued Stay Review
[2021-08-24] MEDS: cefTRIAXone 1,000 MG in SODIUM CHLORIDE 0.9% 100 ML 200 MG IV (11:14)
--- NOTE | 2021-08-24 11:46 | PT-IP ANOTE ---
Attempted to see pt twice, pt refused PT, including ther ex, both times due to fatigue. Agreeable to trying tomorrow.
[2021-08-24] MEDS: ACETAMINOPHEN 325 MG TABLET 650 MG PO (11:48)
[2021-08-24] MEDS: predniSONE 20 MG TABLET 40 MG PO (17:17)
[2021-08-24] MEDS: FUROSEMIDE 40 MG/4 ML VIAL IV (17:18)
[2021-08-24] MEDS: LACTATED RINGERS 300 ML 1000 ML IV (17:25)
[2021-08-24] MEDS: RIVAROXABAN 10 MG TABLET 20 MG PO (18:04)
[2021-08-24] MEDS: INSULIN LISPRO 100 UNIT/ML 3ML VIAL SUBCUT (20:39)
[2021-08-24] MEDS: METFORMIN 850 MG TABLET PO (20:40)
[2021-08-24 21:29] LABS: Blood Urea Nitrogen 42 mg/dL (7-17); Calcium 9.4 mg/dL (8.4-10.2); Carbon Dioxide 21 mmol/L (22-32); Chloride 106 mmol/L (98-107); Estimated Glomerular Filt Rate 23 mL/min (>60); Glucose 168 mg/dL (80-110); HEMOLYSIS < 15 (0-50); Sodium 141 mmol/L (137-145)
[2021-08-24 21:30] LABS: Add Manual Diff / Slide Review NO; Basophils Absolute Auto 100 /uL (0-100); Basophils Percent Auto 0.6 % (0-2); Eosinophils Absolute Auto 100 /uL (0-450); Eosinophils Percent Auto 1.4 % (2-4); Hematocrit 37.3 % (36-46); Hemoglobin 11.9 g/dL (12.0-16.0); Lymphocytes Absolute Auto 1600 /uL (1100-4500); Lymphocytes Percent Auto 18.9 % (25-40); Mean Corpuscular Hemoglobin 28.2 PG (26-34); Mean Corpuscular Volume 88.3 fL (80-100); Monocytes Absolute Auto 600 /uL (0-900); Monocytes Percent Auto 7.4 % (3-14); Neutrophils Absolute Auto 6100 /uL (1500-7000); Neutrophils Percent Auto 71.7 % (50-75); Platelet Count 235 X10^3/uL (150-400); Red Blood Cell Count 4.22 X10^6/uL (4.0-5.2); Red Cell Distribution Width 17.5 % (11.6-14.8); White Blood Cell Count 8.5 X10^3/uL (4.5-11.0)
[2021-08-24 21:38] LABS: Potassium 5.9 mmol/L (3.4-5.1)
--- NOTE | 2021-08-24 21:55 | PC.NURSE ---
Addendum entered by Megan Carreno R.N. 08/25/21 05:12: Noted weight today is 112.5kg. No admit weight on whiteboard in room and admission weight recorded on admission assessment was 104.78 which is the stated weight recorded by [employer] on triage. Uncertain how last nocs TRANSVERSE ABDOMINAL MUSCLE NURSE obtained weight of 014.7 but bed rezeroed this morning and weight is accurate. Believe no admission weight was obtained with bed scale and uncertain about yesterday's weight. No increase in edema and has received 2 doses of Lasix so would have expected weight to be decreased. Original Note: Patient is alert and oriented. Breath sounds remain diminished throughout especially on inspiration. SOB with exertion and unable to lie flat. Is currently on oxygen at 2L/min per [place] as per home regimen with sat of 96%. HRR but still tachy at 104 bpm. Telemetry reading was BBB w/junctional rhythm. Denies nausea. Noted to have smears of black stool; started on Xarelto earlier today so will need to monitor. Is voiding frequently but denies dysuria. Able to move self and is up to bathroom with SBA. Trace bilateral LE/pedal edema. Refused SCD's tonight so reminded to ankle wave. Denied pain. Fall risk score is moderate but calls for assistance approrpriately so alarm is not activated.
[2021-08-24] MEDS: SODIUM CHLORIDE 0.9% 500 ML 1000 ML IV (22:02)
[2021-08-25] VITALS (18 sets, daily range): BP systolic 94–125; BP diastolic 36–76; PULSE 93–106; RESP 18–30; TEMP 36.1–37; O2SAT 92–99
[2021-08-25] MEDS: METOPROLOL IR 25 MG TABLET PO ×4 (00:34→17:01)
[2021-08-25 06:04] LABS: Add Manual Diff / Slide Review NO; Basophils Absolute Auto 0 /uL (0-100); Basophils Percent Auto 0.6 % (0-2); Eosinophils Absolute Auto 0 /uL (0-450); Eosinophils Percent Auto 0.1 % (2-4); Hematocrit 39.2 % (36-46); Lymphocytes Absolute Auto 1000 /uL (1100-4500); Lymphocytes Percent Auto 12.4 % (25-40); Mean Corpuscular HGB Conc 30.7 % (30-36); Mean Corpuscular Hemoglobin 27.5 PG (26-34); Mean Corpuscular Volume 89.6 fL (80-100); Monocytes Absolute Auto 200 /uL (0-900); Monocytes Percent Auto 2.8 % (3-14); Neutrophils Absolute Auto 6600 /uL (1500-7000); Neutrophils Percent Auto 84.1 % (50-75); Platelet Count 242 X10^3/uL (150-400); Red Blood Cell Count 4.37 X10^6/uL (4.0-5.2); Red Cell Distribution Width 17.8 % (11.6-14.8); White Blood Cell Count 7.8 X10^3/uL (4.5-11.0)
[2021-08-25 06:17] LABS: BUN Creatinine Ratio 22.2 (6-22); Blood Urea Nitrogen 47 mg/dL (7-17); Calcium 9.1 mg/dL (8.4-10.2); Carbon Dioxide 20 mmol/L (22-32); Chloride 108 mmol/L (98-107); Estimated Glomerular Filt Rate 24 mL/min (>60); Glucose 177 mg/dL (80-110); HEMOLYSIS < 15 (0-50); Sodium 139 mmol/L (137-145)
[2021-08-25 06:21] LABS: Potassium 5.6 mmol/L (3.4-5.1)
[2021-08-25 06:26] LABS: NT-proBNP (BNP-Adult 18+) 11500 pg/mL (<125)
[2021-08-25] MEDS: allopurinoL 300 MG TABLET PO (08:56)
[2021-08-25] MEDS: ATORVASTATIN 20 MG TABLET PO (08:56)
[2021-08-25] MEDS: INSULIN LISPRO 100 UNIT/ML 3ML VIAL SUBCUT ×4 (08:56→21:02)
[2021-08-25] MEDS: LETROZOLE 2.5 MG TABLET PO ×2 (08:56→21:05)
[2021-08-25] MEDS: FENOFIBRATE, MICRONIZED 67 MG CAPSULE 201 MG PO (08:56)
[2021-08-25] MEDS: predniSONE 20 MG TABLET 40 MG PO (08:56)
[2021-08-25] MEDS: SODIUM CHLORIDE 0.9% FLUSH 10 ML IV ×2 (08:57→21:04)
--- NOTE | 2021-08-25 09:44 | PM.PN.1 ---
Subjective Subjective Date Patient Seen: 08/25/21 Time Patient Seen: 09:44 Interval history: Patient reports that she is feeling much better this morning, was able to sleep in bed last night with her home CPAP nasal pillow and got a bit more rest. Reports that her breathing is much better today. She is enjoying her breakfast, denies nausea or vomiting. Denies any pain. Has been up to the bathroom Would like to go home and take the nurse that is caring for her with her. Exam Vital Signs (past 8 hours): - 08/25/21 04:00 08/25/21 07:45 08/25/21 07:45 Temperature 98.6 F Pulse Rate 105 H Respiratory Rate 26 H Blood Pressure 107/55 L Pulse Oximetry 95 97 Oxygen Delivery Method Nasal Cannula Nasal Cannula CPAP Oxygen Flow Rate 2 2 08/25/21 07:57 Temperature 97.1 F L Pulse Rate 102 H Respiratory Rate 18 Blood Pressure 110/67 Pulse Oximetry 96 Oxygen Delivery Method Oxygen Flow Rate 2 Oxygen Delivery Method Nasal Cannula,CPAP Oxygen Flow Rate 2 Narrative Exam Narrative: GENERAL:? Alert and oriented, appearing stated age and in no acute distress. HEENT:? Head normocephalic/atraumatic.? Extraocular movements intact. LUNGS:? No accessory muscle use today the, normal inspiratory effort with no audible wheezes, rhonchi, or rales, oxygen cannula in place. CV:? Irregularly irregular, 2/5 systolic murmur, no rubs or gallops. ABDOMEN:? Morbidly obese, non-tender, non-distended, no organomegaly.? Positive bowel sounds. EXTREMITIES:? 2+ non-pitting edema to level of mid-shins.? SCDs in place.? No clubbing or cyanosis. NEURO:? Cranial nerves II through XII grossly intact, no focal deficits. PSYCH:? Alert and oriented x 3. SKIN: ?IV in place with no infiltration. Objective Labs Result Diagrams: 08/25/21 05:45 08/25/21 05:45 Labs: Laboratory Results - last 24 hr 08/24/21 08/24/21 08/24/21 05:44 19:36 19:36 WBC 8.5 RBC 4.22 Hgb 11.9 L Hct 37.3 MCV 88.3 MCH 28.2 MCHC 32.0 RDW 17.5 H Plt Count 235 Neut % (Auto) 71.7 Lymph % (Auto) 18.9 L [place] % (Auto) 7.4 Eos % (Auto) 1.4 L Baso % (Auto) 0.6 Neut # (Auto) 6100 Lymph # (Auto) 1600 [place] # (Auto) 600 Eos # (Auto) 100 Baso # (Auto) 100 Sodium 141 Potassium 5.9 H Chloride 106 Carbon Dioxide 21 L BUN 42 H Creatinine 2.21 H Estimated GFR 23 L BUN/Creatinine Ratio 19.0 Glucose 168 H Calcium 9.4 NT-Pro-B Natriuret Pep 7950 H 08/25/21 08/25/21 05:45 05:45 WBC 7.8 RBC 4.37 Hgb 12.0 Hct 39.2 MCV 89.6 MCH 27.5 MCHC 30.7 RDW 17.8 H Plt Count 242 Neut % (Auto) 84.1 H Lymph % (Auto) 12.4 L [place] % (Auto) 2.8 L Eos % (Auto) 0.1 L Baso % (Auto) 0.6 Neut # (Auto) 6600 Lymph # (Auto) 1000 L [place] # (Auto) 200 Eos # (Auto) 0 Baso # (Auto) 0 Sodium 139 Potassium 5.6 H Chloride 108 H Carbon Dioxide 20 L BUN 47 H Creatinine 2.12 H Estimated GFR 24 L BUN/Creatinine Ratio 22.2 H Glucose 177 H Calcium 9.1 NT-Pro-B Natriuret Pep 19572 H [facility] Medical History Chronic gout Chronic renal failure, stage 3a (~11/23/20) Chronic venous stasis dermatitis of both lower extremities COPD (chronic obstructive pulmonary disease) Hyperlipidemia Hypertension Leg pain Low back pain Morbid obesity due to excess calories Nocturia more than twice per night Obesity with alveolar hypoventilation Obstructive sleep apnea of adult Osteoporosis Pulmonary hypertension Type 2 diabetes mellitus Surgical History S/P cataract extraction and insertion of intraocular lens (~12/2018) Status post dilation and curettage (08/18/11) Status post dilation and curettage (02/08/14) Status post dilation and curettage (07/19/13) Status post tubal ligation Family History Brother Heart disease Brother Heart disease Father Heart disease Mother Heart disease Sister Age: 75 Heart disease Diabetes mellitus Social History marital status: details: with 4 adult daughters household members: none Smoking Status: Never smoker alcohol intake: current substance use type: does not use Assessment & Plan Assessment & Plan narrative: 1.? Hypoglycemia, resolved off metformin and glipizide Plan:? Continue carb-consistent diet.? Patient had one dose of metformin yesterday, holding today due to renal function.? Glipizide discontinued. Will start lantus and SSI per protocol. 2. Atrial fibrillation, new, type unknown, persistent to date in hospital Plan:? Patient is no longer rate-controlled with a HR in the low 100s and hypotensive with the addition of metoprolol.?? Will follow vital signs closely.? Patient has been in persistent atrial fibrillation for more than 48 hours, [id number] score 5. Started xarelto 20 mg PO qd yesterday, will change to 15 mg PO qd for renal dosing.? Discussed case with Dr. Patel, [facility], he recommended transfer for higher level of care. Secondary to her echo and exacerbation of chronic medical conditions, she will need JESSY followed by cardioversion. He did not think that it would be likely that she would cardiovert with medical management alone. If transfer is unable to be arranged today, he advised starting amiodarone tonight 150 mg IV bolus over 30 minutes followed by 1 mg/min x6 to 8 hours, then 0.5 mg/min x 18 hours while awaiting transfer. Ideally, patient is transferred prior to starting amiodarone as she will likely need sotalol or dofetilide prior to JESSY and cardioversion and amiodorone has a long 1/2 life. Continue telemetry.? Will transfer to ICU for now, at risk for MN/CVA. 3.? HFrEF, acute on chronic -Echo yesterday showed severely reduced EF from last last study, now 20-25%.? There is severe global hypokinesis of left ventricle, severe dilation of the left ventricle, severe dilation of the right ventricle, and moderate dilation of the left atrium.? There is severe tricuspid regurgitation.? CXR yesterday shows bilateral pleural effusions, right greater than left. -Admission BNP 4940, 7950 yesterday and 11,500 today.? -8 kg weight gain since admission -I/O in last 24 hours: 250/1850, + 670 balance, 0.48 mL/kg/hour Plan:? Discussed preload reduction with Dr. Patel, [facility]. Certainly, her kidney function and BNP are worsened today but clinically she is better (no longer using accessory muscles to breathe, ability to sleep supine, etc) and is making urine. He recommended continued, cautious treatment with Lasix to the clinical endpoint of improved dyspnea even if her kidney function worsens and her baseline creatinine changes over the oil heaterman. He mentioned it is unlikely that with her severely dilated heart, she will be able to maintain a normal creatinine going forward as she develops cardiorenal syndrome. Will check a urine sodium now to assess responsiveness to diuretics, then give lasix 20 mg IV x 1. 4. COPD, severe.? Uses oxygen as needed and at night with CPAP, likely contributing to atrial fibrillation Plan:? Continue home medications and oxygen.? Continue prednisone 40 mg PO qd to cover any developing exacerbation of her COPD.? 5.? Pumonary hypertension, chronic Plan:? Noted on patients medical history, do not have access to her outpatient notes but may benefit from outpatient pulmonology consult if not already ongoing. 6. UTI, acute -Gram negative zach, ID and sensitivity pending. Plan:? Continue rocephin.? Urine culture pending.? 7. Acute on chronic renal failure stage 3a, with developing cardiorenal syndomre Cr: 1.34 --> 1.71 --> 2.21 --> 2.12 Plan:? Will continue to trend labs and gently diurese to reduce dyspnea. Please see #3 above. 8.? Hyperkalemia, acute, improving.? Suspect that this will be transient due to her electrolytes shifting around with her changes in glucose levels.? In addition, she is in acute on chronic renal failure right now and has a urinary tract infection.? Potassium levels are slightly above normal, do not anticipate cardiac changes due to this.? Plan:? Treating other underlying diseases and will trend BMP.? 9. Hypertension, chronic with wide pulse pressure due to HF Plan:? Please see #2-3. Aim for MAP >60. 10.? PAU, chronic Plan:? Continue home nasal pillow. Code:? Full DVT:? Xarelto, renal dosing FEN:? Carb consistent, po fluids COVID:? negative Dispo:? Attempting to transfer to tertiary care center for higher level of care. Call made to [facility], , no answer and mailbox was full. Scores CHADS-VASc Congestive heart failure: yes Hypertension: yes Age 75 years or older: no Diabetes mellitus: yes Stroke, TIA, or TE: no Vascular disease: no Age 65 to 74 years: yes Sex category (female): Female CHADS-VASc Score: 5 Time Spent With Patient Critical Care time: Greater than 70 minutes total time was spent on day of service, evaluating the patient on the floor, including examining the patient, discussing clinical course with clinical and nursing staff, reviewing clinical course in the computer, preparing documentation and writing orders for continued management of care, discussing status with family as appropriate, reviewing plans for the next 24 hours with both patient/family and nursing staff as appropriate. Quality VTE Deep Vein Thrombosis/Pulmonary Embolism Present on Admission: No
--- NOTE | 2021-08-25 10:36 | CM.DPC ---
Discharge Plan note: Met with patient in room, she is sitting up in chair with O2 cannula on. She states she feels weak. She is on chronic home O2 through [employer]. She has had Home Health in the past but does not remember the agency. Showed her the list of the 3 HH agencies and she states she has no preference. She will benefit from HH RN/PT/OT, PT concurs. [facility] is on the vendor list for this week. Called [facility] and spoke with Chata they can accept and could see her on Thursday or Thursday. Faxed referral along with F2F and orders. P: DCP to follow for likely discharge home with Home Health tomorrow. Discharge summary to be faxed to [facility] upon dc. Aretha Cutler RN/DCP
--- NOTE | 2021-08-25 10:37 | PT.IPTN ---
Physical Therapy Treatment Note M2 PT-IP Current Condition Start: 08/23/21 15:13 Freq: NEEDED Status: Active Protocol: Document 08/23/21 14:45 AB (Rec: 08/23/21 15:28 AB [id number]) Physical Therapy Current Condition Current Condition Evaluation Date 08/23/21 Treatment Diagnosis hypoglycemia; a-fib; difficulty in walking Onset Date 08/23/21 M3 PT-IP Subjective Start: 08/23/21 15:13 Freq: NEEDED Status: Active Protocol: Document 08/25/21 10:37 AW (Rec: 08/25/21 11:09 AW [id number]) Subjective Physical Therapy Visit Type Type Treatment Note Visit Start Time 10:20 Visit Stop Time 10:37 Total Visit Minutes 17 Number of PERSONAL CARE AID Visits 0 Physical Therapy Visit Comments Patient Comments agreeable to do PT M4 PT-IP Mobility and Gait Start: 08/23/21 15:13 Freq: NEEDED Status: Active Protocol: Document 08/25/21 10:37 AW (Rec: 08/25/21 11:09 AW [id number]) PT-Transfer Assessment Sit to and From Stand Sit to and from Stand Standby Assistance Equipment Transfer Assistive Device Gait Belt,Front Wheeled Walker Orthotic/Prosthetic Devices or Brace: No Transfers Transfer Destination Chair Transfer Technique ambulated Transfer Ability Level of Assist Standby Assistance,1 Person Assistance,Use of Upper Extremities Comments Mobility Comments Pt was sitting up in the chair as PT arrived. BP was 110/67 HR 105 SpO2 96% on 2L/min via NC. She stood from the chair SBA and ambulated around the room with FWW a total of 35 feet SBA. She was SOB within the first 20 feet but felt ok to continue. SpO2 was stable above 95% on 2L/min throughout ambulation trial and after while sitting on the chair. Pt was left with call light and tray table in reach. Gait Assessment Gait Gait Assistance Required: Standby Assistance Distance (Feet) 35 Assistive Devices Assistive Device Gait Belt,Front Wheeled Walker Orthotic/Prosthetic Devices or Brace: No Gait Deviations General Gait Pattern Decreased Stride Length, Decreased Feet Clearance,Wide Based Gait Factors Limiting Gait Function Factors Limiting Gait Function Decreased Activity Tolerance, Decreased Strength,Poor Balance,Poor Safety Awareness, Respiratory Distress Comments Gait Comments PT SOB after 20 feet with FWW but was able to continue. SpO2 stable throughout. PT-Balance Assessment Sitting Balance and Reactions Static Sitting Balance Ability Good Dynamic Sitting Balance Ability Good Standing Balance and Reactions Static Standing Balance Ability Good Dynamic Standing Balance Ability Fair Device Used FWW M5 PT-IP Objective Assessments Start: 08/23/21 15:13 Freq: NEEDED Status: Active Protocol: Document 08/23/21 14:45 AB (Rec: 08/23/21 15:28 AB [id number]) Orientation Orientation/Cognition Level of Alertness Alert Orientation Name,Place,Situation Language Function Ability No Deficits Noted Safety Awareness Decreased Safety Awareness Memory Description No Deficits Noted Gross Range of Motion Lower Extremity ROM Assessment Within Functional Limits Strength Lower Extremity Strength Assessment Right Impaired Hip 4-/5 Knee 3+/5 Sensation Assessment Sensation Gross Sensation WNL Muscle Tone Muscle Tone WNL Yes Other Assessments Other Other Assessments (+) BLE edema M6 PT-IP Treatment Start: 08/23/21 15:13 Freq: NEEDED Status: Active Protocol: Document 08/25/21 10:37 AW (Rec: 08/25/21 11:09 AW [id number]) Physical Therapy Treatment Education Education Provided Safety M7 PT-IP Assessment and Plan Start: 08/23/21 15:13 Freq: NEEDED Status: Active Protocol: Document 08/25/21 10:37 AW (Rec: 08/25/21 11:09 AW [id number]) PT Summary Assessment and Plan Summary Impairments Pain,ROM,Strength,Balance, Coordination,Sensation,Tone, Cognition,Bed Mobility, Transfers,Gait,Activity Tolerance Assessment Summary Pt agrees she is steadier and can manage longer distance with FWW. PT continues to recommend use of FWW or 4WW at this time. Pt states she would be unable to attend outpatient cardiopulmonary rehab because she lacks transportation. PT recommends home health therapies to improve activity tolerance, mobility independence, and self-care. Goals Bed Mobility Goal Independent Transfer Goal Independent,Front Wheeled Walker,Four Wheeled Walker Gait Goal Independent,Front Wheel Walker ,Four Wheel Walker Gait Distance 200 Other Goals improve transfers and ambulation without AD SBA 200 ft Days to Meet Goals 10 Frequency of Treatment Frequency Of Treatment Once a Day Treatment Plan Physical Therapy Treatment Plan Bed Mobility Training,Transfer Training,Gait Training, Therapeutic Exercise,Balance Retraining,Discharge Planning, Neuromuscular Re-ed, Coordination Retraining Recommendations To Nursing Amount of Assist Needed 1 Person Assist Discharge Recommendations PT Discharge Recommendations Home with Assistance,Home Health Other Discharge Recommendations cardiopulmonary rehab if transportation could be arranged Equipment Needed for Home Before pt states has 4WW and FWW at Discharge home Transportation Needs at Discharge Private Vehicle
[2021-08-25] MEDS: cefTRIAXone 1,000 MG in SODIUM CHLORIDE 0.9% 100 ML 200 MG IV (11:24)
[2021-08-25] MEDS: FUROSEMIDE 40 MG/4 ML VIAL 20 MG IV (14:53)
[2021-08-25 16:11] LABS: Sodium Urine Random 96 mmol/L (30-90)
[2021-08-25] MEDS: RIVAROXABAN 10 MG TABLET 15 MG PO (17:01)
--- NOTE | 2021-08-25 20:58 | PM.CN.EICU ---
History of Present Illness Consult details Chief complaint: low blood sugar (98 this morning) Narrative: Patient is a 71-year-old female history of type II DM, HTN, CKD stage III, COPD, morbid obesity, HFrEF, admitted for generalized weakness , found to have hypoglycemia, UTI, afib w RVR and CHF exacerbation ( Ef 20-25%, severe global hypokinesis of left ventricle, severe dilation of the left & right ventricles, moderate dilation of the left atrium, severe TR) Assessment: Acute hypoxemic resp failure 2/2 pul edema Acute on chronic HFrEf Afib w RVR Acute on chronic CKD III 2/2 CRS type I Hyperkalemia Hypoglycemia Chronic pul HTN Rec: Will need aggressive diuresis to help with cardiac, resp and renal function, IV Lasix 40 mg Q6H, adjust the dose and frequency to a goal neg 2-3 L daily, if needed may switch to IV Lasix drip and augment with diuril or metolazone (decreasing afterload should help with EXECUTIVE DIRECTOR OF NURSING) Hold metoprolol and start IV amiodarone Continue full AC, watch renal function for dose adjustment and or switching to heparin if GFR worsened CPAP as needed, currently on 2 L [place] DVT ppx full AC BMP Q12 hr, LFT & INR daily GI ppx NI Discussed with ICU nurse and Dr. Narvaez CCT 50 min [facility] Medical History Chronic gout Chronic renal failure, stage 3a (~11/23/20) Chronic venous stasis dermatitis of both lower extremities COPD (chronic obstructive pulmonary disease) Hyperlipidemia Hypertension Leg pain Low back pain Morbid obesity due to excess calories Nocturia more than twice per night Obesity with alveolar hypoventilation Obstructive sleep apnea of adult Osteoporosis Pulmonary hypertension Type 2 diabetes mellitus Surgical History S/P cataract extraction and insertion of intraocular lens (~12/2018) Status post dilation and curettage (08/18/11) Status post dilation and curettage (02/08/14) Status post dilation and curettage (07/19/13) Status post tubal ligation Family History Brother Heart disease Brother Heart disease Father Heart disease Mother Heart disease Sister Age: 75 Heart disease Diabetes mellitus Social History marital status: details: with 4 adult daughters household members: none Smoking Status: Never smoker alcohol intake: current substance use type: does not use Current Medications Current Medications Medications: Home Medications FERROUS GLUCONATE (IRON) 325 mg PO BID ##90 07/30/11 [Rx Confirmed 08/23/21] Resmed Airsense 10 CPAP #1 ea 06/24/18 [History Confirmed 08/23/21] albuterol sulfate 90 mcg/actuation aerosol inhaler (Ventolin HFA) 2 puff inhalation DAILY PRN Adequate Ventilation 04/28/19 [History Confirmed 08/23/21] Nidhi Next Contour Test Strips #250 ea 02/20/20 [Rx Confirmed 08/23/21] Microlet Lancets #100 ea 12/25/20 [Rx Confirmed 08/23/21] lisinopril 20 mg tablet 20 mg PO DAILY #90 tabs 12/25/20 [Rx Confirmed 08/23/21] fenofibrate 160 mg tablet 160 mg PO DAILY #90 tabs 06/28/21 [Rx Confirmed 08/23/21] letrozole 2.5 mg tablet 2.5 mg PO BID #180 tabs 06/28/21 [Rx Confirmed 08/23/21] allopurinol 300 mg tablet 300 mg PO DAILY #90 tabs 08/02/21 [Rx Confirmed 08/23/21] atorvastatin 20 mg tablet 20 mg PO DAILY #90 tabs 08/02/21 [Rx Confirmed 08/23/21] glipizide 10 mg tablet 10 mg PO DAILY #90 tabs 08/02/21 [Rx Confirmed 08/23/21] metformin 850 mg tablet 850 mg PO TID #270 tabs 08/02/21 [Rx Confirmed 08/23/21] Visit Medications (administered) Generic Name Dose Route Start Last Admin Trade Name Freq PRN Reason Stop Dose Admin Acetaminophen 650 mg 08/24/21 11:31 08/24/21 11:48 Acetaminophen 325 Mg Tablet PO 650 mg Q6H PRN Administration pain Allopurinol 300 mg 08/24/21 09:00 08/25/21 08:56 Allopurinol 300 Mg Tablet PO 300 mg DAILY [place]A Administration Atorvastatin Calcium 20 mg 08/24/21 09:00 08/25/21 08:56 Atorvastatin 20 Mg Tablet PO 20 mg DAILY [place]A Administration Fenofibrate 201 mg 08/24/21 09:00 08/25/21 08:56 Fenofibrate, Micronized 67 Mg Capsule PO 201 mg DAILY [place]A Administration Ceftriaxone Sodium 1,000 mg/ 100 mls @ 200 mls/hr 08/24/21 12:00 08/25/21 14:55 Sodium Chloride IV Infused Q24H PALMIRA Infusion Insulin Human Lispro 0 unit 08/23/21 16:45 08/25/21 16:56 Insulin Lispro 100 Unit/Ml 3ml Vial SUBCUT 1 unit ACHS PALMIRA Administration Protocol Letrozole 2.5 mg 08/23/21 21:00 08/25/21 08:56 Letrozole 2.5 Mg Tablet PO 2.5 mg BID [facility]A Administration Metoprolol Tartrate 25 mg 08/23/21 13:10 08/25/21 17:01 Metoprolol Ir 25 Mg Tablet PO 25 mg Q6HR [facility]A Administration Prednisone 40 mg 08/24/21 16:30 08/25/21 08:56 Prednisone 20 Mg Tablet PO 40 mg DAILY [place]A Administration Rivaroxaban 15 mg 08/25/21 17:00 08/25/21 17:01 Rivaroxaban 10 Mg Tablet PO 15 mg DAILY@1700 [facility]A Administration Sodium Chloride 10 ml 08/23/21 18:06 08/24/21 22:03 Sodium Chloride 0.9% Flush IV 10 ml PRN PRN Administration Flush Sodium Chloride 10 ml 08/23/21 21:00 08/25/21 08:57 Sodium Chloride 0.9% Flush IV 10 ml BID [place]A Administration Exam Vital Signs (past 8 hours): - 08/25/21 14:30 08/25/21 15:16 08/25/21 16:25 Temperature 97.0 F L 97.2 F L 97.0 F L Pulse Rate 101 H 106 H 102 H Respiratory Rate 18 20 20 Blood Pressure 108/69 118/68 121/74 Pulse Oximetry 96 96 98 Oxygen Flow Rate 2 2 2 08/25/21 17:00 08/25/21 18:00 08/25/21 19:30 Temperature 97.2 F L 96.9 F L 97.1 F L Pulse Rate 102 H 102 H 103 H Respiratory Rate 20 20 26 H Blood Pressure 117/75 115/76 125/57 L Pulse Oximetry 96 95 95 Oxygen Flow Rate 2 2 2 Oxygen Delivery Method Nasal Cannula Oxygen Flow Rate 2 Objective Labs Result Diagrams: 08/25/21 05:45 08/25/21 05:45 Labs: Laboratory Results - last 24 hr 08/24/21 08/24/21 08/25/21 19:36 19:36 05:45 WBC 8.5 7.8 RBC 4.22 4.37 Hgb 11.9 L 12.0 Hct 37.3 39.2 MCV 88.3 89.6 MCH 28.2 27.5 MCHC 32.0 30.7 RDW 17.5 H 17.8 H Plt Count 235 242 Neut % (Auto) 71.7 84.1 H Lymph % (Auto) 18.9 L 12.4 L [place] % (Auto) 7.4 2.8 L Eos % (Auto) 1.4 L 0.1 L Baso % (Auto) 0.6 0.6 Neut # (Auto) 6100 6600 Lymph # (Auto) 1600 1000 L [place] # (Auto) 600 200 Eos # (Auto) 100 0 Baso # (Auto) 100 0 Sodium 141 Potassium 5.9 H Chloride 106 Carbon Dioxide 21 L BUN 42 H Creatinine 2.21 H Estimated GFR 23 L BUN/Creatinine Ratio 19.0 Glucose 168 H Calcium 9.4 NT-Pro-B Natriuret Pep Ur Random Sodium 08/25/21 08/25/21 05:45 15:50 WBC RBC Hgb Hct MCV MCH MCHC RDW Plt Count Neut % (Auto) Lymph % (Auto) [place] % (Auto) Eos % (Auto) Baso % (Auto) Neut # (Auto) Lymph # (Auto) [place] # (Auto) Eos # (Auto) Baso # (Auto) Sodium 139 Potassium 5.6 H Chloride 108 H Carbon Dioxide 20 L BUN 47 H Creatinine 2.12 H Estimated GFR 24 L BUN/Creatinine Ratio 22.2 H Glucose 177 H Calcium 9.1 NT-Pro-B Natriuret Pep 65092 H Ur Random Sodium 96 H Assessment & Plan Time Spent With Patient Critical Care time: I spent a total of [] minutes of critical care time on this patient's care today; this time is exclusive of procedural time.
[2021-08-25] MEDS: INSULIN GLARGINE 100 UNIT/ML 3ML PEN 10 UNIT SUBCUT (21:03)
[2021-08-25] MEDS: FUROSEMIDE 40 MG/4 ML VIAL IV (21:44)
[2021-08-25] MEDS: AMIODARONE 150 MG/100 ML PIGGYBACK 600 MG IV (21:51)
[2021-08-25] MEDS: AMIODARONE 360 MG/200 ML PIGGYBACK 33.33 MG IV (22:02)
[2021-08-25 22:49] LABS: BUN Creatinine Ratio 28.3 (6-22); Blood Urea Nitrogen 62 mg/dL (7-17); Calcium 9.2 mg/dL (8.4-10.2); Carbon Dioxide 14 mmol/L (22-32); Chloride 109 mmol/L (98-107); Estimated Glomerular Filt Rate 23 mL/min (>60); Glucose 190 mg/dL (80-110); HEMOLYSIS < 15 (0-50); Potassium 5.9 mmol/L (3.4-5.1); Sodium 139 mmol/L (137-145)
[2021-08-26] VITALS (22 sets, daily range): BP systolic 93–123; BP diastolic 57–74; PULSE 90–105; RESP 15–26; TEMP 36.1–37.2; O2SAT 95–100; BMI 48.6
[2021-08-26] MEDS: metOLazone 2.5 MG TABLET 5 MG PO (01:24)
[2021-08-26] MEDS: SODIUM POLYSTYRENE SULFON/SORB 15 GM/60 ML CUP 30 GM PO (01:28)
[2021-08-26] MEDS: FUROSEMIDE 40 MG/4 ML VIAL IV (03:36)
[2021-08-26] MEDS: AMIODARONE 360 MG/200 ML PIGGYBACK 16.7 MG IV ×2 (03:40→16:11)
--- NOTE | 2021-08-26 05:49 | P.TELICUIN_ITS ---
Teleintensivist Intervention Date/Time Was camera activated?: No Issue(s) Addressed Issue(s): Abnormal labs Other:: Poor response to diuresis Intervention(s) :: Switch diuretics to IV lasix 100 mg bolus and a drip at 15 mg /hr with 10 mg metolazone daily, adjust the lasix dose to achieve UOP of 150-200 ml/ hr, will need DESK CLERKS SUPERVISOR if no response.
[2021-08-26] MEDS: SODIUM BICARBONATE 650 MG TABLET PO ×5 (06:56→21:07)
[2021-08-26] MEDS: FUROSEMIDE 100 MG/10 ML VIAL IV (07:11)
[2021-08-26 07:21] LABS: Add Manual Diff / Slide Review NO; Basophils Absolute Auto 100 /uL (0-100); Eosinophils Absolute Auto 0 /uL (0-450); Eosinophils Percent Auto 0.2 % (2-4); Hematocrit 36.5 % (36-46); Hemoglobin 11.6 g/dL (12.0-16.0); Lymphocytes Absolute Auto 2400 /uL (1100-4500); Mean Corpuscular HGB Conc 31.7 % (30-36); Mean Corpuscular Volume 88.3 fL (80-100); Monocytes Absolute Auto 1000 /uL (0-900); Monocytes Percent Auto 8.5 % (3-14); Neutrophils Absolute Auto 7900 /uL (1500-7000); Neutrophils Percent Auto 69.3 % (50-75); Platelet Count 245 X10^3/uL (150-400); Red Blood Cell Count 4.13 X10^6/uL (4.0-5.2); Red Cell Distribution Width 17.3 % (11.6-14.8); White Blood Cell Count 11.4 X10^3/uL (4.5-11.0)
[2021-08-26 07:22] LABS: INR 1.7 (0.9-1.3); Prothrombin Time 19.2 SECONDS (10.1-12.7)
[2021-08-26 07:29] LABS: Alanine Aminotransferase 15 IU/L (<35); Albumin Globulin Ratio 1.3 (1.0-2.8); Alkaline Phosphatase 65 U/L (38-126); Aspartate Aminotransferase 28 IU/L (14-36); BUN Creatinine Ratio 29.1 (6-22); Bilirubin Total 0.4 mg/dL (0.2-1.3); Blood Urea Nitrogen 67 mg/dL (7-17); Calcium 9.1 mg/dL (8.4-10.2); Carbon Dioxide 18 mmol/L (22-32); Chloride 108 mmol/L (98-107); Estimated Glomerular Filt Rate 22 mL/min (>60); Globulin 3.2 g/dL (1.7-4.1); Glucose 147 mg/dL (80-110); HEMOLYSIS < 15 (0-50); Potassium 5.2 mmol/L (3.4-5.1); Sodium 138 mmol/L (137-145); Total Protein 7.2 g/dL (6.3-8.2)
--- NOTE | 2021-08-26 07:31 | PC.NURSE ---
End of shift report. Care of patient from [id number]. Patient AAOX4, denies pain, SOB with exertion, up to BSC frequently voiding small amounts of urine 10-15ml. Had a large BM after given kayexalate. Sr-ST 95-105. Amiodarone drip started per doctor order. This am inserted bladder urinary Greco catheter, new PIV started, lasix bolus given. Gave report to day shift RN.
[2021-08-26 07:35] LABS: NT-proBNP (BNP-Adult 18+) 13500 pg/mL (<125)
--- NOTE | 2021-08-26 07:37 | PM.PN.1 ---
Subjective Subjective Date Patient Seen: 08/26/21 Time Patient Seen: 07:38 Interval history: Patient's care over the weekend discussed with Dr. Narvaez. Her echo showed severe dilated cardiomyopathy, she had increasing respiratory distress was given increased doses of diuretics worth worsening renal function. She persisted with atrial fibrillation was modestly hypotensive with the metoprolol for rate control. Cardiology was consulted who strongly recommended cardioversion and probably transfer for both Cardiology and Nephrology specialty management. However there are no open beds within the region to allow for transfer to a higher level of care She was transferred to the ICU where she was placed on amiodarone drip in effort to assist with rate control and perhaps cardiovert her. She was started on oral anticoagulation. Tele intensivists have recommended aggressive attempts at diuresis with furosemide and perhaps even continuous furosemide infusion. Patient is approximately 10 kilos over her admission weight and certainly would benefit from diuresis on the basis of multiple factors including her weight gain fluid collection cardiomyopathy with respiratory issues etcetera Fortunately patient clinically appears to be much better than she looks like on paper. She has minimal if any respiratory distress, in part probably due to the fact that she has severe COPD with an FEV1 of less than 1 L so she is always in some level of respiratory distress. In addition she has pretty obvious obesity hypoventilation which again may have altered her sensorium to issues of respiratory distress and or certainly hypercapnia etcetera Patient able to speak in mostly full sentences. She acknowledges that she was getting weaker and weaker with less than last stamina at home which is how she presented. I think this is a symptom of her cardiomyopathy. She was distressed to hear that it appear she has gained the weight that she has gained which is mostly water weight etcetera. She understands that she has significant kidney problems as a result of significant heart problem on top of known significant long problem her obesity and her diabetes. This is an ominous combination. Exam Vital Signs (past 8 hours): - 08/26/21 00:30 08/26/21 00:33 08/26/21 01:50 Temperature 97.0 F L 97.1 F L Pulse Rate 93 H 104 H Respiratory Rate 22 26 H Blood Pressure 107/65 99/66 Pulse Oximetry 98 98 Oxygen Delivery Method CPAP Oxygen Flow Rate 2 2 08/26/21 02:50 08/26/21 03:45 08/26/21 04:00 Temperature 97.6 F Pulse Rate 98 H 99 H Respiratory Rate 24 26 H Blood Pressure 98/57 L 99/65 Pulse Oximetry 98 98 Oxygen Delivery Method CPAP Oxygen Flow Rate 2 2 08/26/21 06:30 Temperature Pulse Rate 99 H Respiratory Rate 24 Blood Pressure 93/64 Pulse Oximetry 99 Oxygen Delivery Method Oxygen Flow Rate 2 Oxygen Delivery Method CPAP Oxygen Flow Rate 2 Narrative Exam Narrative: Obese elderly female sitting up in a bedside chair HEENT unremarkable Lungs-diminished breath sounds crackles at the bases with diminished breath sounds at the bases consistent with known effusions, very similar to Fridays exam Heart-irregular Abdomen-benign, obese Objective Labs Result Diagrams: 08/26/21 06:50 08/26/21 06:50 Labs: Laboratory Results - last 24 hr 08/25/21 08/25/21 08/26/21 15:50 22:20 06:50 WBC RBC Hgb Hct MCV MCH MCHC RDW Plt Count Neut % (Auto) Lymph % (Auto) [place] % (Auto) Eos % (Auto) Baso % (Auto) Neut # (Auto) Lymph # (Auto) [place] # (Auto) Eos # (Auto) Baso # (Auto) PT INR Sodium 139 138 Potassium 5.9 H 5.2 H Chloride 109 H 108 H Carbon Dioxide 14 L 18 L BUN 62 H 67 H Creatinine 2.19 H 2.30 H Estimated GFR 23 L 22 L BUN/Creatinine Ratio 28.3 H 29.1 H Glucose 190 H 147 H Calcium 9.2 9.1 Total Bilirubin 0.4 AST 28 ALT 15 Alkaline Phosphatase 65 NT-Pro-B Natriuret Pep Total Protein 7.2 Albumin 4.0 Globulin 3.2 Albumin/Globulin Ratio 1.3 Ur Random Sodium 96 H 08/26/21 08/26/21 08/26/21 06:50 06:50 06:50 WBC 11.4 H RBC 4.13 Hgb 11.6 L Hct 36.5 MCV 88.3 MCH 28.0 MCHC 31.7 RDW 17.3 H Plt Count 245 Neut % (Auto) 69.3 Lymph % (Auto) 21.0 L [place] % (Auto) 8.5 Eos % (Auto) 0.2 L Baso % (Auto) 1.0 Neut # (Auto) 7900 H Lymph # (Auto) 2400 [place] # (Auto) 1000 H Eos # (Auto) 0 Baso # (Auto) 100 PT 19.2 H D INR 1.7 H Sodium Potassium Chloride Carbon Dioxide BUN Creatinine Estimated GFR BUN/Creatinine Ratio Glucose Calcium Total Bilirubin AST ALT Alkaline Phosphatase NT-Pro-B Natriuret Pep 31766 H Total Protein Albumin Globulin Albumin/Globulin Ratio Ur Random Sodium [facility] Medical History Chronic gout Chronic renal failure, stage 3a (~11/23/20) Chronic venous stasis dermatitis of both lower extremities COPD (chronic obstructive pulmonary disease) Hyperlipidemia Hypertension Leg pain Low back pain Morbid obesity due to excess calories Nocturia more than twice per night Obesity with alveolar hypoventilation Obstructive sleep apnea of adult Osteoporosis Pulmonary hypertension Type 2 diabetes mellitus Surgical History S/P cataract extraction and insertion of intraocular lens (~12/2018) Status post dilation and curettage (08/18/11) Status post dilation and curettage (02/08/14) Status post dilation and curettage (07/19/13) Status post tubal ligation Family History Brother Heart disease Brother Heart disease Father Heart disease Mother Heart disease Sister Age: 75 Heart disease Diabetes mellitus Social History marital status: details: with 4 adult daughters household members: none Smoking Status: Never smoker alcohol intake: current substance use type: does not use Assessment & Plan Assessment & Plan narrative: 1. Acute systolic congestive heart failure-I agree patient would benefit from aggressive diuresis and probably conversion to sinus rhythm which might end up with some improvement in her overall left ventricular function. Patient may well benefit from additional therapeutic interventions but will require Cardiology consultation for anything additional. Fortunately again patient is not in all that much distress from a pure respiratory standpoint has a very low oxygen requirement and clinically appears much better than she looks like on paper. As per tele life enrichment director continue with aggressive diuresis including a furosemide drip as well as metolazone orally. 2. Atrial fibrillation-patient borderline rate controlled with current amiodarone infusion. Continue with amiodarone and transferred to Cardiology when able. She was started on anticoagulation (a direct oral anticoagulant) in addition because of a high risk score. This is been adjusted downward because of her ongoing renal dysfunction and may well need further adjustment. 3. Renal-patient's renal function continues to decline slowly. I think correction of her cardiac issues are going to be the abreu to improving her renal function. She continues with very limited urine output despite the furosemide drip (of course that has just been started) in addition to the metolazone. She may well require dialysis for volume management if nothing else, again this will need to be accomplished at an outside facility as we do not have that specialty care available here at [facility]. I am going to severely reduced her allopurinol at this point as well given her significantly reduced renal function. 4. Respiratory-patient with pre hospital known severe COPD with FEV1 of 0.68 back in 2018. She is only has certainly gotten worse since then. Also there is an element of obesity hypoventilation in addition now this acute systolic base congestive heart failure. Fortunately her overall oxygen requirement remains quite minimal. She has done well with BiPAP for her sleep apnea as well. Again I think we have maximize her respiratory status we need to correct the underlying conditions which include primarily at this point her congestive heart failure. She was also started on oral prednisone in effort to maximize her pulmonary function in the setting of these other end-organ issues. Unclear whether not that is really made any difference. Is certainly cause any increase in blood sugar and I am going to reduce the dose from 40 mg to 20 mg daily. I think her biggest issues with her pulmonary status really have to do with the congestive heart failure 5. UTI-patient growing 3 organisms 2 separate E coli and Proteus. Ceftriaxone is an appropriate antibiotic for all 3 organisms. Continue that for now. Patient's current dose is appropriately renally dosed at this point anyway. 6. Diabetes-patient has some element of hyperglycemia now at this point after presenting with hypoglycemia. Prednisone is a contributing factor. I am going to work on reducing her prednisone and she continues on insulin coverage including long-acting as well as coverage insulin with short-acting insulin. Patient obviously quite ill with multiple issues ongoing showing evidence of significant severe end-organ disease and progression of disease including her pulmonary status with her premorbid severe COPD cardiac with severe acute on probably chronic systolic base congestive heart failure as well as ongoing renal dysfunction with severe volume overload. In addition she has diabetes and morbid obesity. Her prognosis is quite grim with these multiple organ system issues. Will need to continue to have dialogue with patient and family regarding likelihood of outcome should she have a sudden cardiac or respiratory event and or even whether not she would benefit from more aggressive therapy such as dialysis for volume management etcetera. This point patient wants to continue to be a full code, even if her heart stops and she is resuscitated but unable to ever return home or have any meaningful recovery she would like the chance that that provides rather than knowing that she would or if there is no attempt to made. I discussed with her the implications of this and will continue this discussion over the next several days but for now she continues as a full code. Note: Greater than 30 minutes total time was spent on day of service, evaluating the patient on the floor, including examining the patient, discussing clinical course with clinical and nursing staff, reviewing clinical course in the computer, preparing documentation and writing orders for continued management of care, discussing status with family as appropriate, reviewing plans for the next 24 hours with both patient/family and nursing staff as appropriate. I also called her daughter Tessa Butler at patient's request and updated her on her mother's current status her current treatments and my thinking and are thoughts that she should and would be better in at larger hospital with more specially care available as noted above. COVID-19 COVID-19 status: Negative Quality VTE Deep Vein Thrombosis/Pulmonary Embolism Present on Admission: No
[2021-08-26] MEDS: FUROSEMIDE 100 MG in SODIUM CHLORIDE 0.9% 50 ML 9 MG IV ×2 (08:08→14:10)
[2021-08-26] MEDS: metOLazone 2.5 MG TABLET 10 MG PO (08:08)
[2021-08-26] MEDS: allopurinoL 300 MG TABLET PO (08:14)
[2021-08-26] MEDS: LETROZOLE 2.5 MG TABLET PO ×2 (08:14→21:07)
[2021-08-26] MEDS: ATORVASTATIN 20 MG TABLET PO (08:14)
[2021-08-26] MEDS: SODIUM CHLORIDE 0.9% FLUSH 10 ML IV (08:14)
[2021-08-26] MEDS: FENOFIBRATE, MICRONIZED 67 MG CAPSULE 201 MG PO (08:14)
[2021-08-26] MEDS: INSULIN LISPRO 100 UNIT/ML 3ML VIAL SUBCUT ×3 (08:15→17:27)
[2021-08-26] MEDS: predniSONE 20 MG TABLET PO (08:40)
--- NOTE | 2021-08-26 10:20 | PT-IP ANOTE ---
Pt is now undergoing aggressive diuresis. Before placement of saenz catheter, she was up multiple times overnight using BSC and reports being too fatigued this morning to do PT. Asked pt if PT could return later and she was agreeable.
--- NOTE | 2021-08-26 10:41 | PM.PN.EICU ---
Subjective Subjective Interval history: comfortable sitting in chair talking full sentences no worsening sob or chest pain Current Medications Current Medications Medications: Home Medications FERROUS GLUCONATE (IRON) 325 mg PO BID ##90 07/30/11 [Rx Confirmed 08/23/21] Resmed Airsense 10 CPAP #1 ea 06/24/18 [History Confirmed 08/23/21] albuterol sulfate 90 mcg/actuation aerosol inhaler (Ventolin HFA) 2 puff inhalation DAILY PRN Adequate Ventilation 04/28/19 [History Confirmed 08/23/21] Nidhi Next Contour Test Strips #250 ea 02/20/20 [Rx Confirmed 08/23/21] Microlet Lancets #100 ea 12/25/20 [Rx Confirmed 08/23/21] lisinopril 20 mg tablet 20 mg PO DAILY #90 tabs 12/25/20 [Rx Confirmed 08/23/21] fenofibrate 160 mg tablet 160 mg PO DAILY #90 tabs 06/28/21 [Rx Confirmed 08/23/21] letrozole 2.5 mg tablet 2.5 mg PO BID #180 tabs 06/28/21 [Rx Confirmed 08/23/21] allopurinol 300 mg tablet 300 mg PO DAILY #90 tabs 08/02/21 [Rx Confirmed 08/23/21] atorvastatin 20 mg tablet 20 mg PO DAILY #90 tabs 08/02/21 [Rx Confirmed 08/23/21] glipizide 10 mg tablet 10 mg PO DAILY #90 tabs 08/02/21 [Rx Confirmed 08/23/21] metformin 850 mg tablet 850 mg PO TID #270 tabs 08/02/21 [Rx Confirmed 08/23/21] Visit Medications (administered) Generic Name Dose Route Start Last Admin Trade Name Rivera PRN Reason Stop Dose Admin Acetaminophen 650 mg 08/24/21 11:31 08/24/21 11:48 Acetaminophen 325 Mg Tablet PO 650 mg Q6H PRN Administration pain Allopurinol 50 mg 08/26/21 09:00 08/26/21 08:52 Allopurinol 100 Mg Tablet PO Not Given DAILY PALMIRA Atorvastatin Calcium 20 mg 08/24/21 09:00 08/26/21 08:14 Atorvastatin 20 Mg Tablet PO 20 mg DAILY PALMIRA Administration Fenofibrate 201 mg 08/24/21 09:00 08/26/21 08:14 Fenofibrate, Micronized 67 Mg Capsule PO 201 mg DAILY PALMIRA Administration Ceftriaxone Sodium 1,000 mg/ 100 mls @ 200 mls/hr 08/24/21 12:00 08/25/21 14:55 Sodium Chloride IV Infused Q24H PALMIRA Infusion Amiodarone HCl/Dextrose 360 mg in 200 mls @ 16.7 mls/hr 08/26/21 03:00 08/26/21 03:40 Nexterone IV 08/26/21 14:59 16.7 mls/hr CONT PALMIRA 16.7 mls/hr Administration Protocol Furosemide 100 mg/ Sodium 60 mls @ 9 mls/hr 08/26/21 06:15 08/26/21 08:08 Chloride IV 15 mg/hr CONT PALMIRA 9 mls/hr Administration 15 MG/HR Insulin Glargine 10 unit 08/25/21 21:00 08/25/21 21:03 Insulin Glargine 100 Unit/Ml 3ml Pen SUBCUT 10 unit 2100 PALMIRA Administration Insulin Human Lispro 0 unit 08/23/21 16:45 08/26/21 08:15 Insulin Lispro 100 Unit/Ml 3ml Vial SUBCUT 1 unit ACHS PALMIRA Administration Protocol Letrozole 2.5 mg 08/23/21 21:00 08/26/21 08:14 Letrozole 2.5 Mg Tablet PO 2.5 mg BID PALMIRA Administration Metolazone 10 mg 08/26/21 07:00 08/26/21 08:08 Metolazone 2.5 Mg Tablet PO 10 mg DAILY PALMIRA Administration Prednisone 20 mg 08/26/21 09:00 08/26/21 08:40 Prednisone 20 Mg Tablet PO 20 mg DAILY PALMIRA Administration Rivaroxaban 15 mg 08/25/21 17:00 08/25/21 17:01 Rivaroxaban 10 Mg Tablet PO 15 mg DAILY@1700 PALMIRA Administration Sodium Bicarbonate 650 mg 08/26/21 05:30 08/26/21 08:15 Sodium Bicarbonate 650 Mg Tablet PO 650 mg QID PALMIRA Administration Sodium Chloride 10 ml 08/23/21 18:06 08/24/21 22:03 Sodium Chloride 0.9% Flush IV 10 ml PRN PRN Administration Flush Sodium Chloride 10 ml 08/23/21 21:00 08/26/21 08:14 Sodium Chloride 0.9% Flush IV 10 ml BID PALMIRA Administration Objective Labs Result Diagrams: 08/26/21 06:50 08/26/21 06:50 Labs: Laboratory Results - last 24 hr 08/25/21 08/25/21 08/26/21 15:50 22:20 06:50 WBC RBC Hgb Hct MCV MCH MCHC RDW Plt Count Neut % (Auto) Lymph % (Auto) [place] % (Auto) Eos % (Auto) Baso % (Auto) Neut # (Auto) Lymph # (Auto) [place] # (Auto) Eos # (Auto) Baso # (Auto) PT INR Sodium 139 138 Potassium 5.9 H 5.2 H Chloride 109 H 108 H Carbon Dioxide 14 L 18 L BUN 62 H 67 H Creatinine 2.19 H 2.30 H Estimated GFR 23 L 22 L BUN/Creatinine Ratio 28.3 H 29.1 H Glucose 190 H 147 H Calcium 9.2 9.1 Total Bilirubin 0.4 AST 28 ALT 15 Alkaline Phosphatase 65 NT-Pro-B Natriuret Pep Total Protein 7.2 Albumin 4.0 Globulin 3.2 Albumin/Globulin Ratio 1.3 Ur Random Sodium 96 H 08/26/21 08/26/21 08/26/21 06:50 06:50 06:50 WBC 11.4 H RBC 4.13 Hgb 11.6 L Hct 36.5 MCV 88.3 MCH 28.0 MCHC 31.7 RDW 17.3 H Plt Count 245 Neut % (Auto) 69.3 Lymph % (Auto) 21.0 L [place] % (Auto) 8.5 Eos % (Auto) 0.2 L Baso % (Auto) 1.0 Neut # (Auto) 7900 H Lymph # (Auto) 2400 [place] # (Auto) 1000 H Eos # (Auto) 0 Baso # (Auto) 100 PT 19.2 H D INR 1.7 H Sodium Potassium Chloride Carbon Dioxide BUN Creatinine Estimated GFR BUN/Creatinine Ratio Glucose Calcium Total Bilirubin AST ALT Alkaline Phosphatase NT-Pro-B Natriuret Pep 28325 H Total Protein Albumin Globulin Albumin/Globulin Ratio Ur Random Sodium Exam Vital Signs (past 8 hours): - 08/26/21 02:50 08/26/21 03:45 08/26/21 04:00 Temperature 97.6 F Pulse Rate 98 H 99 H Respiratory Rate 24 26 H Blood Pressure 98/57 L 99/65 Pulse Oximetry 98 98 Oxygen Delivery Method CPAP Oxygen Flow Rate 2 2 08/26/21 06:30 08/26/21 07:00 08/26/21 08:00 Temperature 97.8 F Pulse Rate 99 H 100 H 102 H Respiratory Rate 24 24 23 Blood Pressure 93/64 93/64 108/60 Pulse Oximetry 99 97 96 Oxygen Delivery Method Oxygen Flow Rate 2 2 2 08/26/21 09:00 08/26/21 07:30 08/26/21 08:00 Temperature Pulse Rate 100 H Respiratory Rate 22 20 Blood Pressure 109/61 Pulse Oximetry 95 98 Oxygen Delivery Method Nasal Cannula Room Air Oxygen Flow Rate 2 2 Oxygen Delivery Method Room Air Oxygen Flow Rate 2 Quality TeleICU VTE Deep Vein Thrombosis/Pulmonary Embolism Present on Admission: No Assessment & Plan Assessment & Plan narrative: patient seen with bedside nurse chart/labs/imaging reviewed 71 year old female with UTI chf exacerbation afib with rvr acute on chronic renal failure hx of COPD on home o2 2L labs significant for creat 2.3 rising k 5.3 improving suggest -avoid opiods/benzos -continue dieresis urine output improving -can change back to intermittent lasix bolus -pt on baseline o2 requirements -repeat labs to monitor K -echo pending -monitor ints/outs -consider nephrology/cardio to follow up -place lytes prn -gi/dvt ppx -please call eICU if condition changes Time Spent With Patient Critical Care time: I spent a total of [] minutes of critical care time on this patient's care today; this time is exclusive of procedural time.
--- NOTE | 2021-08-26 11:07 | CM.DPC ---
Discharge Planning Note: Met with patient in room this morning. Alert and oriented patient is sitting up in chair with chronic oxygen on, saenz catheter. She understands that she may be transferred to a higher level of care to deal with her ongoing cardiac and kidney conditions. She states her daughter is driving up from [place] and should be here soon. P: DCP will continue to follow. Yesterday DCP had sent referral to [facility] for RN/PT/OT. Will notify them that she will not be discharging today. Aretha Cutler, RN/DCP
--- NOTE | 2021-08-26 12:04 | PM.DS.1 ---
History of Present Illness History of Present Illness Date Patient Seen: 08/27/21 Time Patient Seen: 11:13 Chief complaint: low blood sugar (98 this morning) Narrative: 71-year-old female admitted by the emergency department because of generalized weakness She has been feeling unwell for the last several days maybe a week plus. Feels just generally weak and not herself. She has been having spells like this off and on over the last several months actually they can last for several days. Sometimes become more acute an are improved after she eats something This morning she checked her blood sugar was on the low side she had something to eat then was transported to the hospital emergency department by her daughter. Blood sugar was even lower when checked in the hospital here. She denies any other specific symptoms. Denies any fever chills nausea vomiting change in bowels any urinary tract symptoms including pain burning or blood in the toilet. Denies any respiratory symptoms she has got long-term chronic lung disease and uses CPAP with oxygen at night but nothing particularly different with her breathing. No chest pain no sense of palpitations no syncope near syncope lightheadedness dizziness. No orthopnea PND no cough In the ER she was found to be in atrial fibrillation with borderline rapid ventricular response which would be a new diagnosis for her. Also had a abnormal UA consistent with an acute cystitis. Chest x-ray showed bilateral small effusions and maybe borderline evidence of pulmonary edema. Discharge Providers Provider Date of admission: 08/23/21 12:34 Discharge Date: 08/27/21 Primary care physician: Germán Gloria MD Consults: 08/23/21 14:34 Consult to Physical Therapy Evaluate & Treat Comment: Physician Instructions: Evaluate and Treat 08/25/21 11:38 Consult to Home Health Routine Comment: Dx New onset Atrial Fib Reason For Exam: Home Health RN, PT/OT 08/25/21 14:16 Consult to Tele-system support analyst Routine Comment: Consulting Provider: [employer] Reason for consultation: Manager Editorial services Has provider been notified: No Discharge provider: Germán Gloria MD Summary Hospital Course Discharge Diagnosis: 1. Atrial fibrillation with rapid ventricular response, new onset 2. Severe cardiomyopathy with ejection fraction 20-25% by echocardiography with multi chamber dilatation and global hypokinesis 3. Acute systolic base congestive heart failure 4. Acute UTI with 2 species E coli and Proteus 5. Type 2 diabetes with initial hypoglycemia, resolved 6. 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 Chronic renal failure stage 3 a 8. Acute kidney injury 9. Obstructive sleep apnea of the adult 10. Morbid obesity 11. Alveolar hypoventilation due to obesity Hospital Course: Patient was admitted after presenting to the emergency department with generalized weakness etcetera. She has found to be in atrial fibrillation with rapid ventricular response. This was treated initially with metoprolol which controlled rate because some modest hypotension. After further cardiac evaluation and findings of her severe cardiomyopathy after phone consultation with Cardiology (was not available at this institution for in-person consultation), she had metoprolol discontinued and switched to amiodarone given parenterally as an infusion. With this she had somewhat better rate control, although did not convert back to sinus rhythm. She was continued on oral amiodarone and per cardiology's recommendation was given a single dose of IV digoxin. Plan is for her to be transferred to [facility] for cardiac consultation in-person and consideration of possible cardioversion or further intervention as necessary She was started on aggressive diuretic therapy given her newly found cardiomyopathy as well as evidence of mild congestive heart failure. She had persistent elevation of BNP and with diuresis had increasing BUN and creatinine. Again aggressive diuresis was felt to be most important patient had an increase in weight of at least 10 kg during her hospitalization (although there is some question as to the accuracy of her weights given lack of improvement despite fairly vigorous diuresis as measured by urine output). She was given intermittent dosing furosemide and switch to furosemide on a continuous infusion basis along with oral metolazone. She had some improved urine output with this although worsening of renal function. Renal function seem to stabilize however and patient did persist with good urinary output. Her IV furosemide was discontinued in favor switching to oral furosemide as per the tele system support analyst, just prior to discharge. Patient also found have a UTI with in the and multiple organisms. 2 species of E coli and 1 species of Proteus were identified. She was placed on parental ceftriaxone which was appropriate for all 3 organisms. She had completed 5 days therapy on the 27 of August and this can likely be discontinued after 7 days of therapy as she will likely be in the hospital that long Patient with severe COPD at baseline started on oral steroid therapy because of worsening respiratory status. This did not seem to make much in the way of difference except causing hyperglycemia and so was reduced slowly. Further reduction of prednisone is entirely appropriate moving forward. Patient found to be modestly hypoglycemic upon admission she had her diabetes meds held initially but then became hyperglycemic specially after did introduction of prednisone. Her oral hypoglycemics were held and she was treated with long and short-acting insulin. With reduction in oral prednisone blood sugars came under good control maintaining levels less than 180 thought evidence of hypoglycemia Patient morbidly obese which is a contributing factor to all of the above problems in my opinion. She was slow to ambulate mobilize because of her issues primarily her congestive heart failure. She would benefit from ongoing therapy in this regard Patient was felt to benefit from placement at an alternate care facility that has the expertise of Cardiology and Nephrology available. After searching for greater than 48 hours not finding an appropriate facility with an open bed. Cardiology was reconsulted over the phone and arrangements were made for transfer to [facility] as a higher priority as per [facility] Cardiology. Status at Discharge Cognitive/behavioral status at discharge: at baseline, oriented Functional status at discharge: uses cane/walker Overall status at discharge: patient is progressing back to baseline Time Spent with Patient Time spent: Greater than 30 minutes Exam Vital Signs (past 8 hours): - 08/26/21 06:30 08/26/21 07:00 08/26/21 08:00 Temperature 97.8 F Pulse Rate 99 H 100 H 102 H Respiratory Rate 24 24 23 Blood Pressure 93/64 93/64 108/60 Pulse Oximetry 99 97 96 Oxygen Delivery Method Oxygen Flow Rate 2 2 2 08/26/21 09:00 08/26/21 07:30 08/26/21 08:00 Temperature Pulse Rate 100 H Respiratory Rate 22 20 Blood Pressure 109/61 Pulse Oximetry 95 98 Oxygen Delivery Method Nasal Cannula Room Air Oxygen Flow Rate 2 2 08/26/21 10:00 08/26/21 11:00 Temperature 98.0 F Pulse Rate 100 H 102 H Respiratory Rate 21 Blood Pressure 109/61 Pulse Oximetry 95 96 Oxygen Delivery Method Oxygen Flow Rate 2 2 Oxygen Delivery Method Room Air Oxygen Flow Rate 2 Objective Labs Result Diagrams: 08/26/21 06:50 08/27/21 02:58 Labs: Laboratory Results - last 24 hr 08/25/21 08/25/21 08/26/21 15:50 22:20 06:50 WBC RBC Hgb Hct MCV MCH MCHC RDW Plt Count Neut % (Auto) Lymph % (Auto) [place] % (Auto) Eos % (Auto) Baso % (Auto) Neut # (Auto) Lymph # (Auto) [place] # (Auto) Eos # (Auto) Baso # (Auto) PT INR Sodium 139 138 Potassium 5.9 H 5.2 H Chloride 109 H 108 H Carbon Dioxide 14 L 18 L BUN 62 H 67 H Creatinine 2.19 H 2.30 H Estimated GFR 23 L 22 L BUN/Creatinine Ratio 28.3 H 29.1 H Glucose 190 H 147 H Calcium 9.2 9.1 Total Bilirubin 0.4 AST 28 ALT 15 Alkaline Phosphatase 65 NT-Pro-B Natriuret Pep Total Protein 7.2 Albumin 4.0 Globulin 3.2 Albumin/Globulin Ratio 1.3 Ur Random Sodium 96 H 08/26/21 08/26/21 08/26/21 06:50 06:50 06:50 WBC 11.4 H RBC 4.13 Hgb 11.6 L Hct 36.5 MCV 88.3 MCH 28.0 MCHC 31.7 RDW 17.3 H Plt Count 245 Neut % (Auto) 69.3 Lymph % (Auto) 21.0 L [place] % (Auto) 8.5 Eos % (Auto) 0.2 L Baso % (Auto) 1.0 Neut # (Auto) 7900 H Lymph # (Auto) 2400 [place] # (Auto) 1000 H Eos # (Auto) 0 Baso # (Auto) 100 PT 19.2 H D INR 1.7 H Sodium Potassium Chloride Carbon Dioxide BUN Creatinine Estimated GFR BUN/Creatinine Ratio Glucose Calcium Total Bilirubin AST ALT Alkaline Phosphatase NT-Pro-B Natriuret Pep 29455 H Total Protein Albumin Globulin Albumin/Globulin Ratio Ur Random Sodium [facility] Medical History Chronic gout Chronic renal failure, stage 3a (~11/23/20) Chronic venous stasis dermatitis of both lower extremities COPD (chronic obstructive pulmonary disease) Hyperlipidemia Hypertension Leg pain Low back pain Morbid obesity due to excess calories Nocturia more than twice per night Obesity with alveolar hypoventilation Obstructive sleep apnea of adult Osteoporosis Pulmonary hypertension Type 2 diabetes mellitus Surgical History S/P cataract extraction and insertion of intraocular lens (~12/2018) Status post dilation and curettage (08/18/11) Status post dilation and curettage (02/08/14) Status post dilation and curettage (07/19/13) Status post tubal ligation Family History Brother Heart disease Brother Heart disease Father Heart disease Mother Heart disease Sister Age: 75 Heart disease Diabetes mellitus Social History marital status: details: with 4 adult daughters household members: none Smoking Status: Never smoker alcohol intake: current substance use type: does not use Discharge Plan Discharge Plan Patient Disposition: [facility] Other facility: [facility] Discharge Health Status Multidrug resistant organism: No MDRO Precautions: Independence Diet/Activity/Treatments Diet: Carb-consistent/Diabetic and Low-fat Liquid consistency: Normal/Thin Food texture: Regular Discharge Data Primary Care Provider: Germán Gloria VTE Deep Vein Thrombosis/Pulmonary Embolism Present on Admission: No
[2021-08-26] MEDS: cefTRIAXone 1,000 MG in SODIUM CHLORIDE 0.9% 100 ML 200 MG IV (12:52)
--- NOTE | 2021-08-26 15:28 | PT.IPTN ---
Current Diagnoses Type 2 diabetes mellitus with hypoglycemia without coma (08/23/21) Heart failure, unspecified (08/23/21) Physical Therapy Treatment Note M2 PT-IP Current Condition Start: 08/23/21 15:13 Freq: NEEDED Status: Active Protocol: Document 08/23/21 14:45 AB (Rec: 08/23/21 15:28 AB [id number]) Physical Therapy Current Condition Current Condition Evaluation Date 08/23/21 Treatment Diagnosis hypoglycemia; a-fib; difficulty in walking Onset Date 08/23/21 M3 PT-IP Subjective Start: 08/23/21 15:13 Freq: NEEDED Status: Active Protocol: Document 08/26/21 15:28 AW (Rec: 08/26/21 15:44 AW [id number]) Subjective Physical Therapy Visit Type Type Treatment Note Visit Start Time 15:10 Visit Stop Time 15:25 Total Visit Minutes 15 Notes Pt's daughter, Varinder, was present and providing encouragement for pt to mobilize. Number of AQUACULTURIST Visits 0 Physical Therapy Visit Comments Patient Comments agreeable to do PT M4 PT-IP Mobility and Gait Start: 08/23/21 15:13 Freq: NEEDED Status: Active Protocol: Document 08/26/21 15:28 AW (Rec: 08/26/21 15:44 AW [id number]) PT-Transfer Assessment Sit to and From Stand Sit to and from Stand Standby Assistance Equipment Transfer Assistive Device Gait Belt,Front Wheeled Walker Orthotic/Prosthetic Devices or Brace: No Transfers Transfer Destination Chair,Bedside Commode Transfer Technique ambulated with FWW Transfer Ability Level of Assist Standby Assistance,1 Person Assistance,Use of Upper Extremities Comments Mobility Comments Pt was sitting up on the chair as PT arrived. She requested to use the commode. She needed assist for management of multiple lines but was able to stand and walk 15 feet with FWW to [facility]. She managed all transfers SBA. She was unable to move her bowels. She stood from the commode SBA and needed assist with pericare. She used FWW to ambulate 15 feet back to the chair SBA. SpO2 was stable 86-98% on 2L/ min througout this session. Pt repositioned herself on the chair where she was left with call light and all needs in reach. Gait Assessment Gait Gait Assistance Required: Standby Assistance Distance (Feet) 15 Assistive Devices Assistive Device Gait Belt,Front Wheeled Walker Gait Deviations General Gait Pattern Decreased Stride Length, Decreased Feet Clearance,Wide Based Gait Factors Limiting Gait Function Factors Limiting Gait Function Decreased Activity Tolerance, Decreased Strength,Poor Balance,Poor Safety Awareness, Respiratory Distress Comments Gait Comments Pt SOB with 15 feet ambulation using FWW on 2L/min. M5 PT-IP Objective Assessments Start: 08/23/21 15:13 Freq: NEEDED Status: Active Protocol: Document 08/23/21 14:45 AB (Rec: 08/23/21 15:28 AB [id number]) Orientation Orientation/Cognition Level of Alertness Alert Orientation Name,Place,Situation Language Function Ability No Deficits Noted Safety Awareness Decreased Safety Awareness Memory Description No Deficits Noted Gross Range of Motion Lower Extremity ROM Assessment Within Functional Limits Strength Lower Extremity Strength Assessment Right Impaired Hip 4-/5 Knee 3+/5 Sensation Assessment Sensation Gross Sensation WNL Muscle Tone Muscle Tone WNL Yes Other Assessments Other Other Assessments (+) BLE edema M6 PT-IP Treatment Start: 08/23/21 15:13 Freq: NEEDED Status: Active Protocol: Document 08/26/21 15:28 AW (Rec: 08/26/21 15:44 AW [id number]) Physical Therapy Treatment Education Education Provided Safety M7 PT-IP Assessment and Plan Start: 08/23/21 15:13 Freq: NEEDED Status: Active Protocol: Document 08/26/21 15:28 AW (Rec: 08/26/21 15:44 AW [id number]) PT Summary Assessment and Plan Summary Impairments Pain,ROM,Strength,Balance, Coordination,Sensation,Tone, Cognition,Bed Mobility, Transfers,Gait,Activity Tolerance Assessment Summary Pt continues to require SBA for short distance ambulation with FWW due to decreased functional capacity and SOB. Attending physician is seeking transfer to higher level of care for cardiology and nephrology needs. If pt discharges home, she would benefit from home health PT to improve activity tolerance, mobility independence, and self-care. Goals Bed Mobility Goal Independent Transfer Goal Independent,Front Wheeled Walker,Four Wheeled Walker Gait Goal Independent,Front Wheel Walker ,Four Wheel Walker Gait Distance 200 Other Goals improve transfers and ambulation without AD SBA 200 ft Days to Meet Goals 10 Frequency of Treatment Frequency Of Treatment Once a Day Treatment Plan Physical Therapy Treatment Plan Bed Mobility Training,Transfer Training,Gait Training, Therapeutic Exercise,Balance Retraining,Discharge Planning, Neuromuscular Re-ed, Coordination Retraining Recommendations To Nursing Amount of Assist Needed 1 Person Assist Discharge Recommendations PT Discharge Recommendations Home with Assistance,Home Health Other Discharge Recommendations cardiopulmonary rehab if transportation could be arranged Equipment Needed for Home Before pt states has 4WW and FWW at Discharge home Transportation Needs at Discharge Private Vehicle
[2021-08-26] MEDS: RIVAROXABAN 10 MG TABLET 15 MG PO (17:29)
--- NOTE | 2021-08-26 17:54 | PC.NURSE ---
Day Shift Note Alert and oriented x3. SpO2 in the upper 90s on 2L NC (per home dose). Reports shortness of breath has improved throughout shift, crackles bilateral bases. Lasix gtt infusing at 15 mg/hr, decreased to 10 mg/hr at 1700 due to urine output over 200 ml in 1 hour (300 ml). Hourly urine outputs over 150 ml, see totals. Greco catheter in place. SBA to BSC for BMs. Denies pain. Amiodarone gtt continues at 0.5 mg/min (16.7 ml/hr) and HR in the 98-104 range, sinus tach. Call light within reach, using appropriately to make needs known. Pt stated that all 4 of her daughters may receive information/updates about her (Varinder, Ricky, Anyi, and Tessa). Stated she spoke with Tessa and indicated that she is her main point person for information and updates.
--- NOTE | 2021-08-26 20:55 | PM.ICURNDS ---
- :: This patient was seen via real time interactive two-way audiovisual telecommunication. Note: patient HR improved, diuresing welkl and lasix weaned to 9mg/hr. Currentl UO ~ 300 hr. will transition to PO amiodarone. plan for repet bmp overnight, and will monitor electrolytes on eliquis, and is tolerating po well. will monitor HR when tranitiong to PO.
[2021-08-26] MEDS: AMIODARONE 200 MG TABLET 400 MG PO (21:07)
[2021-08-26] MEDS: INSULIN GLARGINE 100 UNIT/ML 3ML PEN 10 UNIT SUBCUT (21:08)
[2021-08-26] MEDS: FUROSEMIDE 100 MG in SODIUM CHLORIDE 0.9% 50 ML IV (22:32)
[2021-08-27] VITALS (12 sets, daily range): BP systolic 91–140; BP diastolic 53–73; PULSE 101–106; RESP 15–18; TEMP 35.9–36.6; O2SAT 93–99
[2021-08-27] MEDS: ACETAMINOPHEN 325 MG TABLET 650 MG PO (01:43)
[2021-08-27 03:21] LABS: BUN Creatinine Ratio 34.4 (6-22); Blood Urea Nitrogen 77 mg/dL (7-17); Calcium 9.1 mg/dL (8.4-10.2); Carbon Dioxide 24 mmol/L (22-32); Chloride 103 mmol/L (98-107); Estimated Glomerular Filt Rate 23 mL/min (>60); Glucose 124 mg/dL (80-110); HEMOLYSIS < 15 (0-50); Potassium 4.5 mmol/L (3.4-5.1); Sodium 140 mmol/L (137-145)
--- NOTE | 2021-08-27 07:06 | PC.NURSE ---
End of shift note. Care of patient from [id number]. Patient AAOX4, did not sleep well during the night, up and down to BSC trying to have a BM with no success. Continues on Lasix gtt 8mg/hr, with hourly output between 200 and 250ml. At beginning of shift ST 100s, transitioned to PO amiodarone. At approximately 0330 went into atrial fibrillation 100s, BP WNL. Plan is to transfer patient to a higher level of care.
--- NOTE | 2021-08-27 07:41 | PM.PN.1 ---
Subjective Subjective Date Patient Seen: 08/27/21 Time Patient Seen: 07:41 Interval history: Patient with increased urine production yesterday. Has completed IV infusion of amiodarone, switched to oral amiodarone by tele electronics system mechanic. Heart rate remains around 100 in atrial fibrillation Patient with nearly 5 L of urine output in the last 24+ hours, however weight is unchanged leading me to believe her weight is as likely as not inaccurate Up with physical therapy perhaps a bit more stamina Labs this morning show renal function stable to minimally improved Blood sugars improved on lower dose prednisone. Consistently less than 200 and less than 180 as well Exam Vital Signs (past 8 hours): - 08/27/21 00:00 08/27/21 01:00 08/27/21 00:00 Temperature 97.1 F L 97.7 F Pulse Rate 102 H 101 H Respiratory Rate 16 15 Blood Pressure 98/59 L 91/53 L Pulse Oximetry 93 94 Oxygen Delivery Method CPAP Oxygen Flow Rate 2 2 08/27/21 02:00 08/27/21 03:00 08/27/21 04:00 Temperature 97.8 F 96.7 F L 97.7 F Pulse Rate 102 H 103 H 101 H Respiratory Rate 16 16 16 Blood Pressure 140/73 106/64 112/59 L Pulse Oximetry 98 97 99 Oxygen Delivery Method Oxygen Flow Rate 2 2 2 08/27/21 04:00 08/27/21 05:00 08/27/21 06:00 Temperature 96.7 F L 96.7 F L Pulse Rate 103 H 104 H Respiratory Rate 16 16 Blood Pressure 110/59 L 101/68 Pulse Oximetry 99 98 Oxygen Delivery Method Nasal Cannula Oxygen Flow Rate 2 2 08/27/21 07:00 Temperature 97.0 F L Pulse Rate 106 H Respiratory Rate 15 Blood Pressure 94/61 Pulse Oximetry 98 Oxygen Delivery Method Oxygen Flow Rate 2 Oxygen Delivery Method Nasal Cannula Oxygen Flow Rate 2 Objective Labs Result Diagrams: 08/26/21 06:50 08/27/21 02:58 Labs: Laboratory Results - last 24 hr 08/27/21 02:58 Sodium 140 Potassium 4.5 Chloride 103 Carbon Dioxide 24 BUN 77 H Creatinine 2.24 H Estimated GFR 23 L BUN/Creatinine Ratio 34.4 H Glucose 124 H Calcium 9.1 PFSH Medical History Chronic gout Chronic renal failure, stage 3a (~11/23/20) Chronic venous stasis dermatitis of both lower extremities COPD (chronic obstructive pulmonary disease) Hyperlipidemia Hypertension Leg pain Low back pain Morbid obesity due to excess calories Nocturia more than twice per night Obesity with alveolar hypoventilation Obstructive sleep apnea of adult Osteoporosis Pulmonary hypertension Type 2 diabetes mellitus Surgical History S/P cataract extraction and insertion of intraocular lens (~12/2018) Status post dilation and curettage (08/18/11) Status post dilation and curettage (02/08/14) Status post dilation and curettage (07/19/13) Status post tubal ligation Family History Brother Heart disease Brother Heart disease Father Heart disease Mother Heart disease Sister Age: 75 Heart disease Diabetes mellitus Social History marital status: details: with 4 adult daughters household members: none Smoking Status: Never smoker alcohol intake: current substance use type: does not use Assessment & Plan Assessment & Plan narrative: 1. Acute systolic congestive heart failure-patient with good diuresis ongoing at this time. Renal function supporting this. Continue with aggressive diuresis and expect continued clinical improvement. Continues on continuous furosemide infusion at this time as per tele electronics system mechanic. 2. Atrial fibrillation-patient remains in atrial fibrillation with borderline adequate rate control. Minimally hypotensive. Continue current therapies including her anticoagulation. Consider attempting to have local cardiology see here here at [facility] since we been unable to transfer her. Still believe she might benefit from cardioversion, at some point 3. Renal-patient's renal function is stable. In factor creatinine is slightly improved. It may do her well to continue to aggressively diurese and there may be some continued improvement. Electrolytes remained stable as well despite the aggressive diuresis 4. Respiratory-patient appears to be on baseline oxygen replacement therapy. I think tomorrow we can probably reduce her prednisone dose even further as I do not think COPD is really a component of what is been ongoing with her. 5. UTI-patient on day 5 parental antibiotic therapy with ceftriaxone for her E coli and Proteus species infections. Will plan to complete 7 days of parental antibiotics and discontinue. 6. Diabetes-numbers much improved on current lower dose prednisone. Continue with current doses of insulin including long-acting and coverage insulin 7. Disposition-patient clinically is stable to improved. May well be able to go home with home health services etcetera. I no longer convinced she requires tertiary care placement, although she would benefit from in-person cardiology evaluation if we can obtain that. Note: Greater than 30 minutes total time was spent on day of service, evaluating the patient on the floor, including examining the patient, discussing clinical course with clinical and nursing staff, reviewing clinical course in the computer, preparing documentation and writing orders for continued management of care, discussing status with family as appropriate, reviewing plans for the next 24 hours with both patient/family and nursing staff as appropriate. Quality VTE Deep Vein Thrombosis/Pulmonary Embolism Present on Admission: No
[2021-08-27] MEDS: predniSONE 20 MG TABLET PO (08:20)
[2021-08-27] MEDS: ATORVASTATIN 20 MG TABLET PO (08:21)
[2021-08-27] MEDS: AMIODARONE 200 MG TABLET 400 MG PO (08:21)
[2021-08-27] MEDS: SODIUM CHLORIDE 0.9% FLUSH 10 ML IV ×2 (08:21→12:17)
[2021-08-27] MEDS: allopurinoL 100 MG TABLET 50 MG PO (08:21)
[2021-08-27] MEDS: metOLazone 2.5 MG TABLET 10 MG PO (08:53)
[2021-08-27] MEDS: FENOFIBRATE, MICRONIZED 67 MG CAPSULE 201 MG PO (08:53)
[2021-08-27] MEDS: SODIUM BICARBONATE 650 MG TABLET PO ×2 (08:54→13:20)
[2021-08-27] MEDS: LETROZOLE 2.5 MG TABLET PO (08:54)
--- NOTE | 2021-08-27 10:54 | PM.PN.EICU ---
Subjective Subjective Interval history: no acute events overnight comfortable Current Medications Current Medications Medications: Home Medications FERROUS GLUCONATE (IRON) 325 mg PO BID ##90 07/30/11 [Rx Confirmed 08/23/21] Resmed Airsense 10 CPAP #1 ea 06/24/18 [History Confirmed 08/23/21] albuterol sulfate 90 mcg/actuation aerosol inhaler (Ventolin HFA) 2 puff inhalation DAILY PRN Adequate Ventilation 04/28/19 [History Confirmed 08/23/21] Nidhi Next Contour Test Strips #250 ea 02/20/20 [Rx Confirmed 08/23/21] Microlet Lancets #100 ea 12/25/20 [Rx Confirmed 08/23/21] lisinopril 20 mg tablet 20 mg PO DAILY #90 tabs 12/25/20 [Rx Confirmed 08/23/21] fenofibrate 160 mg tablet 160 mg PO DAILY #90 tabs 06/28/21 [Rx Confirmed 08/23/21] letrozole 2.5 mg tablet 2.5 mg PO BID #180 tabs 06/28/21 [Rx Confirmed 08/23/21] allopurinol 300 mg tablet 300 mg PO DAILY #90 tabs 08/02/21 [Rx Confirmed 08/23/21] atorvastatin 20 mg tablet 20 mg PO DAILY #90 tabs 08/02/21 [Rx Confirmed 08/23/21] glipizide 10 mg tablet 10 mg PO DAILY #90 tabs 08/02/21 [Rx Confirmed 08/23/21] metformin 850 mg tablet 850 mg PO TID #270 tabs 08/02/21 [Rx Confirmed 08/23/21] Visit Medications (administered) Generic Name Dose Route Start Last Admin Trade Name Magenq PRN Reason Stop Dose Admin Acetaminophen 650 mg 08/24/21 11:31 08/27/21 01:43 Acetaminophen 325 Mg Tablet PO 650 mg Q6H PRN Administration pain Allopurinol 50 mg 08/26/21 09:00 08/27/21 08:21 Allopurinol 100 Mg Tablet PO 50 mg DAILY PALMIRA Administration Amiodarone HCl 400 mg 08/27/21 08:00 08/27/21 08:21 Amiodarone 200 Mg Tablet PO 400 mg BIDWM PAL[facility]A Administration Atorvastatin Calcium 20 mg 08/24/21 09:00 08/27/21 08:21 Atorvastatin 20 Mg Tablet PO 20 mg DAILY PAL[facility]A Administration Fenofibrate 201 mg 08/24/21 09:00 08/27/21 08:53 Fenofibrate, Micronized 67 Mg Capsule PO 201 mg DAILY PAL[facility]A Administration Ceftriaxone Sodium 1,000 mg/ 100 mls @ 200 mls/hr 08/24/21 12:00 08/26/21 17:16 Sodium Chloride IV Infused Q24H [facility] Infusion Furosemide 100 mg/ Sodium 60 mls @ 9 mls/hr 08/26/21 06:15 08/27/21 09:18 Chloride IV 7 mg/hr CONT PALMIRA 4.2 mls/hr Infusion 15 MG/HR Insulin Glargine 10 unit 08/25/21 21:00 08/26/21 21:08 Insulin Glargine 100 Unit/Ml 3ml Pen SUBCUT 10 unit 2100 PALMIRA Administration Insulin Human Lispro 0 unit 08/23/21 16:45 08/27/21 08:12 Insulin Lispro 100 Unit/Ml 3ml Vial SUBCUT Not Given ACHS [facility] Protocol Letrozole 2.5 mg 08/23/21 21:00 08/27/21 08:54 Letrozole 2.5 Mg Tablet PO 2.5 mg BID PALMIRA Administration Metolazone 10 mg 08/26/21 07:00 08/27/21 08:53 Metolazone 2.5 Mg Tablet PO 10 mg DAILY PAL[facility]A Administration Prednisone 20 mg 08/26/21 09:00 08/27/21 08:20 Prednisone 20 Mg Tablet PO 20 mg DAILY PAL[facility] Administration Rivaroxaban 15 mg 08/25/21 17:00 08/26/21 17:29 Rivaroxaban 10 Mg Tablet PO 15 mg DAILY@1700 PALM[facility]A Administration Sodium Bicarbonate 650 mg 08/26/21 05:30 08/27/21 08:54 Sodium Bicarbonate 650 Mg Tablet PO 650 mg QID [facility] Administration Sodium Chloride 10 ml 08/23/21 18:06 08/24/21 22:03 Sodium Chloride 0.9% Flush IV 10 ml PRN PRN Administration Flush Sodium Chloride 10 ml 08/23/21 21:00 08/27/21 08:21 Sodium Chloride 0.9% Flush IV 10 ml BID PALMIRA Administration Objective Labs Result Diagrams: 08/26/21 06:50 08/27/21 02:58 Labs: Laboratory Results - last 24 hr 08/27/21 02:58 Sodium 140 Potassium 4.5 Chloride 103 Carbon Dioxide 24 BUN 77 H Creatinine 2.24 H Estimated GFR 23 L BUN/Creatinine Ratio 34.4 H Glucose 124 H Calcium 9.1 Exam Vital Signs (past 8 hours): - 08/27/21 03:00 08/27/21 04:00 08/27/21 04:00 Temperature 96.7 F L 97.7 F Pulse Rate 103 H 101 H Respiratory Rate 16 16 Blood Pressure 106/64 112/59 L Pulse Oximetry 97 99 Oxygen Delivery Method Nasal Cannula Oxygen Flow Rate 2 2 08/27/21 05:00 08/27/21 06:00 08/27/21 07:00 Temperature 96.7 F L 96.7 F L 97.0 F L Pulse Rate 103 H 104 H 106 H Respiratory Rate 16 16 15 Blood Pressure 110/59 L 101/68 94/61 Pulse Oximetry 99 98 98 Oxygen Delivery Method Oxygen Flow Rate 2 2 2 08/27/21 08:00 08/27/21 10:28 Temperature 97.2 F L Pulse Rate 102 H Respiratory Rate 16 Blood Pressure 97/61 Pulse Oximetry 98 99 Oxygen Delivery Method Nasal Cannula Oxygen Flow Rate 0 1.5 Oxygen Delivery Method Nasal Cannula Oxygen Flow Rate 1.5 Quality TeleICU VTE Deep Vein Thrombosis/Pulmonary Embolism Present on Admission: No Assessment & Plan Assessment & Plan narrative: patient seen with bedside nurse chart/labs./imaging reivewed 71 year old female with UTI chf exacerbation afib with rvr acute on chronic renal failure hx of COPD on home o2 2L creat unchanged suggest -avoid opiods/benzos -dc lasix drip, change to po -amio po -check echo -monitor ints/outs -consider nephrology/cardio to follow up/outpatient -place lytes prn -gi/dvt ppx -please call eICU if condition changes Time Spent With Patient Critical Care time: I spent a total of [] minutes of critical care time on this patient's care today; this time is exclusive of procedural time.
--- NOTE | 2021-08-27 11:41 | PC.NURSE ---
Per Tele-Transmission Supervisor Dr. Kim during rounds orders lasix gtt to stop, transition and wanted saenz removed, in anticipation of discharge in next couple days and to notify Dr. Gloria of this. New order for po lasix to start this evening received, but Dr. Gloria wants saenz to remain in place for close I/O monitoring. Notified Dr. Gloria that per coordinator [facility] is not accepting/no beds at this time. Will continue to monitor.
--- NOTE | 2021-08-27 11:47 | PT.IPTN ---
Current Diagnoses Type 2 diabetes mellitus with hypoglycemia without coma (08/23/21) Heart failure, unspecified (08/23/21) Physical Therapy Treatment Note M2 PT-IP Current Condition Start: 08/23/21 15:13 Freq: NEEDED Status: Active Protocol: Document 08/23/21 14:45 AB (Rec: 08/23/21 15:28 AB [id number]) Physical Therapy Current Condition Current Condition Evaluation Date 08/23/21 Treatment Diagnosis hypoglycemia; a-fib; difficulty in walking Onset Date 08/23/21 M3 PT-IP Subjective Start: 08/23/21 15:13 Freq: NEEDED Status: Active Protocol: Document 08/27/21 11:32 KS (Rec: 08/27/21 12:36 KS [id number]) Subjective Physical Therapy Visit Type Type Treatment Note Visit Start Time 11:32 Visit Stop Time 11:47 Total Visit Minutes 15 Number of CARETAKER Visits 1 Physical Therapy Visit Comments Patient Comments agreeable to do PT, needs encouragement. M4 PT-IP Mobility and Gait Start: 08/23/21 15:13 Freq: NEEDED Status: Active Protocol: Document 08/27/21 11:32 KS (Rec: 08/27/21 12:36 KS [id number]) PT-Transfer Assessment Sit to and From Stand Sit to and from Stand Standby Assistance Equipment Transfer Assistive Device Gait Belt,Front Wheeled Walker Orthotic/Prosthetic Devices or Brace: No Transfers Transfer Destination Chair,Bedside Commode Transfer Technique ambulated with FWW Transfer Ability Level of Assist Standby Assistance,1 Person Assistance,Use of Upper Extremities Comments Mobility Comments Pt in chair upon arrival on RA 93%. Needs encouragement to participate but agreeable to ambulate. SBA for sit<>stand w / FWW and then ambulated ~30 ft w/ FWW and O2 desat to 85% but recovered quickly to 90% upon sitting. Pt then requested to use BSC and ambulated additional 20 ft w/ FWW SBA. Pt left on BSC w/ all needs in reach HR: 107, O2 90 -94% on RA. Gait Assessment Gait Gait Assistance Required: Standby Assistance Distance (Feet) 30 Assistive Devices Assistive Device Gait Belt,Front Wheeled Walker Gait Deviations General Gait Pattern Decreased Stride Length, Decreased Feet Clearance,Wide Based Gait Factors Limiting Gait Function Factors Limiting Gait Function Decreased Activity Tolerance, Decreased Strength,Poor Balance,Poor Safety Awareness, Respiratory Distress Comments Gait Comments Pt ambulated stlowly w/ decreased stride and foot clearance w/ WBOS. Quick approach to fatigue following 30 ft w/ FWW on RA. PT-Balance Assessment Sitting Balance and Reactions Static Sitting Balance Ability Good Dynamic Sitting Balance Ability Good Standing Balance and Reactions Static Standing Balance Ability Good Dynamic Standing Balance Ability Fair Device Used FWW M5 PT-IP Objective Assessments Start: 08/23/21 15:13 Freq: NEEDED Status: Active Protocol: Document 08/23/21 14:45 AB (Rec: 08/23/21 15:28 AB [id number]) Orientation Orientation/Cognition Level of Alertness Alert Orientation Name,Place,Situation Language Function Ability No Deficits Noted Safety Awareness Decreased Safety Awareness Memory Description No Deficits Noted Gross Range of Motion Lower Extremity ROM Assessment Within Functional Limits Strength Lower Extremity Strength Assessment Right Impaired Hip 4-/5 Knee 3+/5 Sensation Assessment Sensation Gross Sensation WNL Muscle Tone Muscle Tone WNL Yes Other Assessments Other Other Assessments (+) BLE edema M6 PT-IP Treatment Start: 08/23/21 15:13 Freq: NEEDED Status: Active Protocol: Document 08/27/21 11:32 KS (Rec: 08/27/21 12:36 KS [id number]) Physical Therapy Treatment Education Education Provided Safety M7 PT-IP Assessment and Plan Start: 08/23/21 15:13 Freq: NEEDED Status: Active Protocol: Document 08/27/21 11:32 KS (Rec: 08/27/21 12:36 KS [id number]) PT Summary Assessment and Plan Summary Impairments Pain,ROM,Strength,Balance, Coordination,Sensation,Tone, Cognition,Bed Mobility, Transfers,Gait,Activity Tolerance Assessment Summary Pt SBA for mobility today, continues to be limited by low activity tolerance and O2 desat to 85% following 30 ft ambulation w/ FWW but quickly recovers to low 90s upon sitting. If pt discharges home , she would benefit from home health PT to improve activity tolerance and functional mobility independence. Goals Bed Mobility Goal Independent Transfer Goal Independent,Front Wheeled Walker,Four Wheeled Walker Gait Goal Independent,Front Wheel Walker ,Four Wheel Walker Gait Distance 200 Other Goals improve transfers and ambulation without AD SBA 200 ft Days to Meet Goals 10 Frequency of Treatment Frequency Of Treatment Once a Day Treatment Plan Physical Therapy Treatment Plan Bed Mobility Training,Transfer Training,Gait Training, Therapeutic Exercise,Balance Retraining,Discharge Planning, Neuromuscular Re-ed, Coordination Retraining Recommendations To Nursing Amount of Assist Needed 1 Person Assist Discharge Recommendations PT Discharge Recommendations Home with Assistance,Home Health Other Discharge Recommendations cardiopulmonary rehab if transportation could be arranged Equipment Needed for Home Before pt states has 4WW and FWW at Discharge home Transportation Needs at Discharge Private Vehicle
[2021-08-27] MEDS: DIGOXIN 500 MCG/2 ML AMPUL 250 MCG IV (12:09)
[2021-08-27] MEDS: cefTRIAXone 1,000 MG in SODIUM CHLORIDE 0.9% 100 ML 200 MG IV (12:11)
[2021-08-27] MEDS: INSULIN LISPRO 100 UNIT/ML 3ML VIAL SUBCUT (12:19)
--- NOTE | 2021-08-27 13:57 | CM.DPC ---
Discharge Plan Note: Met with patient in room, sitting up in chair per her usual visiting with daughter Melania, up visiting from [place]. Patient states she is feeling a little better. Not clear on discharge or transfer plans at this time. P: Continue to follow tomorrow. Pending: May transfer or be discharged. If discharged home, [facility] had been faxed initial referral several days ago. I updated Chata garcia status. Aretha Cutler, RN/DCP
--- NOTE | 2021-08-27 15:44 | PC.NURSE ---
Addendum entered by Jose Martin Vu R.N. 08/27/21 15:57: Patient has no other questions or concerns at this time. Patient remains AFIB on telemetry HR 102. Patient picked up by [facility] for discharge to [facility] for cardiology consult. Original Note: Transfer order for patient to [facility], patient agreeable and her daughter at bedside aware. Notified patient's other daughter Tessa per patient's request. Report called to Swathi at [facility] [phone]. Patient alert oriented, and pleasant. Greco remains in place. Attempted to use BSC prior to transfer, passing gas today.
--- NOTE | 2021-08-28 08:16 | CM.DPC ---
DCP Hospital transfer Per , [facility] Outpatient Physical Therapist Assistant accepts pt for higher level of care and they have bed availability and pt transferred last night 08/27/21 to [facility] for ongoing medical needs. SW called [facility] this morning as they received referral prior to pt needing hospital transfer and they will follow up with [facility] to determine if HH needed at d/c from [facility]. JULIAN Duncan
== END 2021-08-27 15:35 | disposition short-term general hospital (02) | DRG 291 ==
LOC: ED 12:29 → AC 12:35 → ICU 08-26 07:52 → AC 08-26 15:00 → ICU 08-26 15:00
PROVIDERS: Family Medicine; Student in an Organized Health Care Education/Training Program; Admitting Provider Internal Medicine; Emergency Provider Emergency Medicine; Family Provider Internal Medicine; PCP Internal Medicine; Referring Provider Emergency Medicine; Visit Provider Internal Medicine
DX: I13.0 Hypertensive heart and chronic kidney disease with heart failure and stage 1 through stage 4 chronic kidney disease, or unspecified chronic kidney disease (principal); I50.23 Acute on chronic systolic (congestive) heart failure; N39.0 Urinary tract infection, site not specified; Z68.42 Body mass index [BMI] 45.0-49.9, adult; N17.9 Acute kidney failure, unspecified; E11.649 Type 2 diabetes mellitus with hypoglycemia without coma; I48.91 Unspecified atrial fibrillation; N18.30 Chronic kidney disease, stage 3 unspecified; J44.9 Chronic obstructive pulmonary disease, unspecified; I27.20 Pulmonary hypertension, unspecified; E87.5 Hyperkalemia; E66.01 Morbid (severe) obesity due to excess calories; I42.9 Cardiomyopathy, unspecified; G47.33 Obstructive sleep apnea (adult) (pediatric); E11.65 Type 2 diabetes mellitus with hyperglycemia; B96.20 Unspecified Escherichia coli [E. coli] as the cause of diseases classified elsewhere; B96.4 Proteus (mirabilis) (morganii) as the cause of diseases classified elsewhere; E78.5 Hyperlipidemia, unspecified; Z99.81 Dependence on supplemental oxygen; Z20.822 Contact with and (suspected) exposure to COVID-19; Z79.84 Long term (current) use of oral hypoglycemic drugs
CPT/HCPCS: 36415; 71045; 80048; 80053; 81001; 81003; 82550; 82962; 83605; 83690; 83735; 83880; 84145; 84300; 84443; 84484; 85025; 85379; 85610; 85730; 87040; 87077; 87086; 87186; 87635; 93005; 93010; 94660; 94760; 96365; 96375; 97116; 97162; 97530; 99223; 99233; 99238; 99284; 99285; C9803; C8929; J0282; J0696; J1160; J1815; J1940; Q9957

== ENCOUNTER → 2021-10-17 11:46 | Outpatient (CLI) | payer OTHER, SELFPAY ==
[2021-08-26 08:54] VITALS: BMI 48.6
[2021-10-17 12:46] LABS: Hemoglobin A1C% w Est Avg Glu 5.7 % (4.0-6.0)
[2021-10-17 12:53] LABS: Alanine Aminotransferase 24 IU/L (<35); Albumin 4.1 g/dL (3.5-5.0); Albumin Globulin Ratio 1.2 (1.0-2.8); Alkaline Phosphatase 74 U/L (38-126); Aspartate Aminotransferase 34 IU/L (14-36); BUN Creatinine Ratio 16.5 (6-22); Bilirubin Total 0.3 mg/dL (0.2-1.3); Blood Urea Nitrogen 23 mg/dL (7-17); Calcium 9.6 mg/dL (8.4-10.2); Carbon Dioxide 25 mmol/L (22-32); Chloride 111 mmol/L (98-107); Estimated Glomerular Filt Rate 40 mL/min (>60); Globulin 3.3 g/dL (1.7-4.1); Glucose 55 mg/dL (80-110); HEMOLYSIS < 15 (0-50); Magnesium 2.2 mg/dL (1.6-2.3); Potassium 5.2 mmol/L (3.4-5.1); Sodium 144 mmol/L (137-145); Total Protein 7.4 g/dL (6.3-8.2); Uric Acid 6.3 mg/dL (2.5-6.2)
[2021-10-17 13:40] LABS: Free T4, Direct Thyroxine 1.79 ng/dL (0.78-2.19)
[2021-10-17 13:54] LABS: Thyroid Stimulating Hormone 3.11 uIU/mL (0.47-4.68)
== END ==
PROVIDERS: Family Provider Internal Medicine; PCP Internal Medicine; Referring Provider Internal Medicine; Visit Provider Internal Medicine
DX: I48.19 Other persistent atrial fibrillation (principal); Z79.899 Other long term (current) drug therapy; E11.9 Type 2 diabetes mellitus without complications; E78.5 Hyperlipidemia, unspecified; I10 Essential (primary) hypertension; I42.9 Cardiomyopathy, unspecified; M1A.9XX0 Chronic gout, unspecified, without tophus (tophi)
CPT/HCPCS: 36415; 80053; 83036; 83735; 84439; 84443; 84550

== ENCOUNTER → 2022-01-20 14:15 | Outpatient (CLI) | payer OTHER, SELFPAY ==
[2021-08-26 08:54] VITALS: BMI 48.6
[2022-01-20 15:39] LABS: BUN Creatinine Ratio 30.9 (6-22); Blood Urea Nitrogen 63 mg/dL (7-17); Calcium 9.7 mg/dL (8.4-10.2); Carbon Dioxide 23 mmol/L (22-32); Chloride 104 mmol/L (98-107); Estimated Glomerular Filt Rate 25 mL/min (>60); Glucose 148 mg/dL (80-110); HEMOLYSIS < 15 (0-50); Potassium 4.1 mmol/L (3.4-5.1); Sodium 141 mmol/L (137-145); Uric Acid 7.6 mg/dL (2.5-6.2)
== END ==
PROVIDERS: PCP Internal Medicine; Referring Provider Internal Medicine; Visit Provider Internal Medicine
DX: I10 Essential (primary) hypertension (principal); E78.5 Hyperlipidemia, unspecified; I42.9 Cardiomyopathy, unspecified; N18.31 Chronic kidney disease, stage 3a
CPT/HCPCS: 36415; 80048; 83735; 84550

== ENCOUNTER → 2022-04-21 14:43 | Outpatient (CLI) | payer OTHER, SELFPAY ==
[2021-08-26 08:54] VITALS: BMI 48.6
[2022-04-21 15:25] LABS: Hemoglobin A1C% w Est Avg Glu 5.3 % (4.0-6.0)
[2022-04-21 15:39] LABS: Alanine Aminotransferase 18 IU/L (<35); Albumin 3.9 g/dL (3.5-5.0); Albumin Globulin Ratio 1.1 (1.0-2.8); Alkaline Phosphatase 72 U/L (38-126); Aspartate Aminotransferase 25 IU/L (14-36); BUN Creatinine Ratio 10.8 (6-22); Bilirubin Total 0.4 mg/dL (0.2-1.3); Blood Urea Nitrogen 17 mg/dL (7-17); Carbon Dioxide 27 mmol/L (22-32); Chloride 107 mmol/L (98-107); Estimated Glomerular Filt Rate 34 mL/min (>60); Globulin 3.5 g/dL (1.7-4.1); Glucose 119 mg/dL (80-110); HEMOLYSIS < 15 (0-50); Sodium 145 mmol/L (137-145); Total Protein 7.4 g/dL (6.3-8.2)
[2022-04-21 16:37] LABS: TSH w/ Reflex to FT4 2.73 uIU/mL (0.47-4.68)
== END ==
PROVIDERS: PCP Internal Medicine; Referring Provider Internal Medicine; Visit Provider Internal Medicine
DX: E11.9 Type 2 diabetes mellitus without complications (principal); E78.2 Mixed hyperlipidemia; I10 Essential (primary) hypertension; N18.31 Chronic kidney disease, stage 3a
CPT/HCPCS: 36415; 80053; 83036; 84443

== ENCOUNTER 2022-05-13 10:51 | Inpatient (IN) | payer OTHER, SELFPAY ==
[2021-08-26 08:54] VITALS: BMI 48.6
[2022-05-13] VITALS (46 sets, daily range): BP systolic 109–147; BP diastolic 48–78; PULSE 69–87; RESP 15–40; TEMP 36.1–37.1; O2SAT 92–99; BMI 43.6; BMI 40.1
--- NOTE | 2022-05-13 11:31 | PC.NURSE ---
pt states she had diarrhea all day thursday and then on thursday night she had blood in the toilet and on the toilet paper as she wiped. she did not have any bleeding on thursday but then it returned thursday and has been constant every times she has BM since then. today pt was feeling weak and slightly dizzy so she wanted to come in. hx; about 5 years ago pt states she had a GI bleed from too much ibuprofen and she had colonoscopy, she states she still does take ibuprofen but not as frequently as previously
[2022-05-13 11:41] LABS: Hematocrit 26.2 % (36-46); Hemoglobin 7.9 g/dL (12.0-16.0); Mean Corpuscular HGB Conc 30.1 % (30-36); Mean Corpuscular Hemoglobin 24.7 PG (26-34); Platelet Count 361 X10^3/uL (150-400); White Blood Cell Count 15.3 X10^3/uL (4.5-11.0)
[2022-05-13 11:42] LABS: Add Manual Diff / Slide Review YES; INR 1.4 (0.9-1.3); Prothrombin Time 15.8 SECONDS (10.1-12.7)
[2022-05-13 11:45] LABS: PTT Partial Thromboplastin Tim 32 SECONDS (26-36)
[2022-05-13 11:46] LABS: Alanine Aminotransferase 21 IU/L (<35); Albumin 4.1 g/dL (3.5-5.0); Albumin Globulin Ratio 1.2 (1.0-2.8); Alkaline Phosphatase 86 U/L (38-126); Aspartate Aminotransferase 32 IU/L (14-36); BUN Creatinine Ratio 19.1 (6-22); Bilirubin Total 0.2 mg/dL (0.2-1.3); Blood Urea Nitrogen 53 mg/dL (7-17); Calcium 8.9 mg/dL (8.4-10.2); Carbon Dioxide 17 mmol/L (22-32); Chloride 106 mmol/L (98-107); Estimated Glomerular Filt Rate 17 mL/min (>60); Globulin 3.4 g/dL (1.7-4.1); HEMOLYSIS < 15 (0-50); Potassium 4.1 mmol/L (3.4-5.1); Sodium 140 mmol/L (137-145); Total Protein 7.5 g/dL (6.3-8.2)
[2022-05-13 11:52] LABS: Anisocytosis 2+; Neutrophils Absolute Manual 12546 /uL (3000-5900); Total Cells Counted 100
[2022-05-13 11:53] LABS: Glucose 42 mg/dL (80-110); Hypochromasia 2+; Poikilocytosis 1+
[2022-05-13] MEDS: DEXTROSE 10 % IN WATER 250 ML 999 ML IV (11:59)
--- NOTE | 2022-05-13 12:00 | DI.CT.S_ITS ---
PROCEDURE: CT ABDOMEN PELVIS WO CON INDICATIONS: abd pain/gi bleed TECHNIQUE: After the administration of oral contrast, 5 mm thick sections acquired from the diaphragms to the symphysis. 5 mm coronal and sagittal reformats were performed. For radiation dose reduction, the following was used: automated exposure control, adjustment of mA and/or kV according to patient size. COMPARISON: None. FINDINGS: Lower thorax: The lung bases are clear. Heart size normal. No hiatal hernia. Liver: Normal in size and attenuation. No contour deformity present. Biliary system: No calcified cholelithiasis or pericholecystic inflammation. No intra or extrahepatic bile duct dilatation. Pancreas: Unremarkable without mass or inflammation evident. Spleen: Normal in size and density. Adrenals: Normal morphology and density. Reproductive system: Low-density exophytic left-sided uterine lesion measures 5.5 cm with peripheral calcification. Urinary system: Right staghorn calculus associated with renal atrophy. Nonobstructive left renal calculus measures 1.2 cm. No evidence of ureteral calculus bilaterally urinary bladder is decompressed. Gastrointestinal system: The bowel is unremarkable without evidence of bowel obstruction or inflammation. The stomach appears unremarkable. Multiple diverticula arise from the sigmoid colon without evidence of diverticulitis. Appendix: No findings to suggest acute appendicitis. Peritoneal spaces: No mesenteric or retroperitoneal adenopathy. No free air. No free fluid. Vasculature: Aortic atherosclerotic vascular calcification noted without evidence of aneurysm. Abdominal wall: Abdominal wall intact without evidence of ventral or inguinal hernias. Musculoskeletal: Normal bone mineralization. Degenerative disc disease and arthropathy noted in lower lumbar spine. No acute fractures. IMPRESSION: 1. No acute CT findings in the abdomen and pelvis. 2. Bilateral renal calculi without obstructive uropathy or hydronephrosis. 3. Low-density left uterine lesion, possible fibroid. Consider follow-up ultrasound evaluation 4. Diverticulosis without evidence of diverticulitis Approved by: Cal Gaitan M.D. on 05/13/2022 at 12:09
--- NOTE | 2022-05-13 12:00 | PC.NURSE ---
lab called to report low BG. taken by finger stick and reading was less than 25. notified charge nurse and gave applejuice to patient PO and can of OJ. provider notified and order placed for IV D10. started by charge nurse.
--- NOTE | 2022-05-13 12:03 | ED_ITS ---
HPI - GI Bleed General Chief complaint: GI Bleed Stated complaint: bleeding from rectum since Thursday Time Seen by Provider: 05/13/22 11:53 Source: patient Mode of arrival: Family Vehicle History of Present Illness HPI Narrative: Patient brought in by her friend from home for complaints of black stools off and on for the past 4 days. No syncope. Denies abdominal pain. Patient is on Eliquis for cardiac issues. Patient is diabetic. Has not had any changes in her diabetes medications. On my arrival lab had called had low sugar. Patient had bedside Accu-Chek. It was less than 20. Immediate orange juice and apple juice was given. D10 ordered as we are out of D50. Short on supply. Patient feeling much better after drinking apple juice and orange juice. Patient in no distress at this time. No history of GI bleed in the past. No chest pain. Has chronic dyspnea requiring O2 when she walks which is not new. Wears a CPAP at night. Patient sees Dr. Gloria. Related Data Home Medications Medication Instructions Recorded Confirmed Resmed Airsense 10 CPAP #1 ea 06/24/18 05/26/22 albuterol sulfate 90 mcg/actuation 2 puff inhalation DAILY PRN 04/28/19 05/26/22 aerosol inhaler (Ventolin HFA) Adequate Ventilation losartan 25 mg tablet 25 mg PO DAILY 10/17/21 05/26/22 spironolactone 25 mg tablet 12.5 mg PO DAILY 10/17/21 05/26/22 Previous Rx's Medication Instructions Recorded FERROUS GLUCONATE (IRON) 325 mg PO BID ##90 07/30/11 Microlet Lancets #100 ea 12/25/20 Nidhi Next Contour Test Strips #250 ea 09/24/21 Disabled Parking #1 ea 10/17/21 amiodarone 200 mg tablet 200 mg PO DAILY #90 tabs 01/21/22 atorvastatin 20 mg tablet 20 mg PO DAILY #90 tabs 01/21/22 glipizide 10 mg tablet 10 mg PO DAILY #90 tabs 01/21/22 letrozole 2.5 mg tablet 2.5 mg PO BID #180 tabs 01/21/22 allopurinol 100 mg tablet 100 mg PO DAILY #90 tabs 05/16/22 omeprazole 40 mg capsule,delayed 40 mg PO BID #60 caps 05/16/22 release Allergies Allergy/AdvReac Type Severity Reaction Status Date / Time fluticasone Allergy Severe FACIAL Verified 05/26/22 10:33 [From Advair Diskus] SWELLING AND TURNS RED salmeterol Allergy Severe FACIAL Verified 05/26/22 10:33 [From Advair Diskus] SWELLING AND TURNS RED albuterol Allergy Intermediate FACE Verified 05/26/22 10:33 SWELLING NO SOB adhesive Allergy Mild MEDICAL Verified 05/26/22 10:33 TAPE LEAVES RED RASH Review of Systems Review of Systems Narrative: GENERAL: negative chills, pause fatigue, malaise, negative fever, sweats. HEENT: negative sinus pain, ear pain, sore throat RESPIRATORY: negative dyspnea, cough CARDIOVASCULAR: negative chest pain, palpitations GASTROINTESTINAL: negative nausea, vomiting, abdominal pain, positive black stools : negative dysuria, frequency, hematuria MUSCULOSKELETAL: negative muscle or bony pain SKIN: negative rash, skin lesions NEUROLOGIC: negative weakness, numbness ROS Unobtainable: All systems reviewed & are unremarkable except as noted in HPI and below Patient History Medical History (Updated 05/26/22 @ 10:48 by Germán Gloria MD) Cardiomyopathy Chronic gout Chronic renal failure, stage 3a (~11/23/20) Chronic venous stasis dermatitis of both lower extremities COPD (chronic obstructive pulmonary disease) Hyperlipidemia Hypertension Hypoglycemia Leg pain Low back pain Morbid obesity due to excess calories Nocturia more than twice per night Obesity with alveolar hypoventilation Obstructive sleep apnea of adult Osteoporosis Paroxysmal atrial fibrillation Pulmonary hypertension Type 2 diabetes mellitus Surgical History S/P cataract extraction and insertion of intraocular lens (~12/2018) Status post dilation and curettage (08/18/11) Status post dilation and curettage (02/08/14) Status post dilation and curettage (07/19/13) Status post tubal ligation Family History Brother Heart disease Brother Heart disease Father Heart disease Mother Heart disease Sister Age: 76 Heart disease Diabetes mellitus Social History marital status: details: with 4 adult daughters household members: none Smoking Status: Never smoker alcohol intake: former substance use type: does not use Smoking Status: Never smoker alcohol intake frequency: holidays/special occasions only Substance Use Type: does not use Exam Narrative Exam Narrative: GENERAL: in no distress, not toxic not dyspneic HEAD: Normocephalic. EYES: Pupils equal round ENT: Mucous membranes moist. NECK: Trachea midline. CARDIOVASCULAR: Regular rate and rhythm without murmurs RESPIRATORY: Clear to auscultation. Breath sounds equal bilaterally. No wheezes, rales, or rhonchi. GASTROINTESTINAL: Abdomen soft, non-tender EXTREMITIES: No gross deformities. BACK: No flank tenderness. NEURO: AOx4. Clear speech no facial droop light touch intact bilateral face and hands with strong equal dog daycare provider SKIN: Warm and dry PSYCH: Not anxious, is cooperative Initial Vital Signs Initial Vital Signs: Vital Signs Pulse Rate 87 05/13/22 11:02 Pulse Oximetry 95 05/13/22 11:02 Course Orders Ordered: Discontinued Medications Acetaminophen (Acetaminophen 325 Mg Tablet) 650 mg PO Q6H PRN PRN Reason: Fever/Mild Pain (1-3) Acetaminophen (Acetaminophen 325 Mg Tablet) 650 mg PO Q6H PRN PRN Reason: Fever/Mild Pain (1-3) Last Admin: 05/15/22 22:25 Dose: 650 mg Documented By: MARIA C Admin: 05/14/22 23:45 Dose: 650 mg Documented By: CAMILLE Albuterol (Albuterol 2.5 Mg/3 Ml Neb (Adult)) 2.5 mg INH DAILY PRN PRN Reason: Adequate Ventilation Amiodarone HCl (Amiodarone 200 Mg Tablet) 200 mg PO DAILY [facility] Last Admin: 05/14/22 08:33 Dose: Not Given Documented By: LUI Amiodarone HCl (Amiodarone 200 Mg Tablet) 200 mg PO DAILY [facility] Last Admin: 05/16/22 08:59 Dose: 200 mg Documented By: Admin: 05/15/22 08:06 Dose: 200 mg Documented By: LUI Atorvastatin Calcium (Atorvastatin 20 Mg Tablet) 20 mg PO DAILY [facility] Last Admin: 05/16/22 09:00 Dose: 20 mg Documented By: Admin: 05/15/22 08:06 Dose: 20 mg Documented By: LUI Dextrose (Dextrose 50 % In Water 25 Gm/50 Ml Syringe) 25 gm IV NOW ONE Stop: 05/13/22 14:22 Last Admin: 05/13/22 14:21 Dose: 25 gm Documented By: EVER Dextrose (Dextrose 50 % In Water 25 Gm/50 Ml Syringe) 25 gm IV PRN PRN PRN Reason: Hypoglycemia Last Admin: 05/13/22 21:42 Dose: 25 gm Documented By: BONI Dextrose (Dextrose 50 % In Water 25 Gm/50 Ml Syringe) 25 gm IV PRN PRN PRN Reason: Hypoglycemia Ferrous Sulfate (Ferrous Sulfate 325 Mg Tablet) 325 mg PO BIDWM [place] Last Admin: 05/16/22 08:59 Dose: 325 mg Documented By: Admin: 05/15/22 17:05 Dose: 325 mg Documented By: Admin: 05/15/22 08:06 Dose: 325 mg Documented By: LUI Glipizide (Glipizide 5 Mg Tablet) 10 mg PO DAILY [place] Glipizide (Glipizide 5 Mg Tablet) 2.5 mg PO BIDAC [facility] Last Admin: 05/16/22 06:34 Dose: 2.5 mg Documented By: MARIA C Admin: 05/15/22 16:55 Dose: 2.5 mg Documented By: Admin: 05/15/22 08:07 Dose: 2.5 mg Documented By: LUI Dextrose (D10w) 250 mls @ 999 mls/hr IV PRN PRN PRN Reason: Hypoglycemia Last Infusion: 05/13/22 12:13 Dose: 0 mls/hr Documented By: Admin: 05/13/22 11:59 Dose: 999 mls/hr Documented By: THANH Dextrose (D10w) 1,000 mls @ 75 mls/hr IV CONT [place] Last Infusion: 05/13/22 16:29 Dose: 84 mls/hr Documented By: Admin: 05/13/22 14:41 Dose: 75 mls/hr Documented By: EVER Sodium Chloride (Normal Saline 0.9%) 1,000 mls @ 100 mls/hr IV CONT [place] Last Admin: 05/13/22 17:38 Dose: Not Given Documented By: GINA Dextrose (D10w) 1,000 mls @ 84 mls/hr IV CONT [place] Last Infusion: 05/14/22 08:56 Dose: 0 mls/hr Documented By: Admin: 05/14/22 00:40 Dose: 84 mls/hr Documented By: Admin: 05/13/22 16:31 Dose: Not Given Documented By: GINA Lactated Ringer's (Lactated Ringers) 1,000 mls @ 42 mls/hr IV NOW ONE Stop: 05/15/22 16:15 Last Admin: 05/14/22 16:28 Dose: 42 mls/hr Documented By: MICAH Sodium Chloride (Normal Saline 0.45%) 1,000 mls @ 84 mls/hr IV CONT [place] Stop: 05/15/22 18:40 Last Infusion: 05/15/22 07:55 Dose: 0 mls/hr Documented By: Admin: 05/15/22 07:39 Dose: 84 mls/hr Documented By: LUI Sodium Chloride (Normal Saline 0.9%) 500 mls @ 1,000 mls/hr IV BOLUS ONE Stop: 05/15/22 07:10 Last Infusion: 05/15/22 07:56 Dose: 0 mls/hr Documented By: Admin: 05/15/22 06:58 Dose: 1,000 mls/hr Documented By: CAMILLE Sodium Chloride (Normal Saline 0.9%) 1,000 mls @ 84 mls/hr IV CONT [place] Stop: 05/15/22 19:55 Last Infusion: 05/15/22 23:00 Dose: 0 mls/hr Documented By: Admin: 05/15/22 08:08 Dose: 84 mls/hr Documented By: LUI Insulin Human Lispro (Insulin Lispro 100 Unit/Ml 3ml Vial) 0 unit SUBCUT ACHS [place]; Protocol Last Admin: 05/14/22 17:43 Dose: Not Given Documented By: Admin: 05/14/22 11:32 Dose: Not Given Documented By: Admin: 05/14/22 08:07 Dose: Not Given Documented By: Admin: 05/13/22 17:51 Dose: Not Given Documented By: Admin: 05/13/22 16:33 Dose: Not Given Documented By: CTS Insulin Human Lispro (Insulin Lispro 100 Unit/Ml 3ml Vial) 0 unit SUBCUT ACHS [place]; Protocol Last Admin: 05/16/22 08:04 Dose: Not Given Documented By: Admin: 05/15/22 21:20 Dose: Not Given Documented By: Admin: 05/15/22 17:07 Dose: Not Given Documented By: Admin: 05/15/22 12:01 Dose: 1 unit Documented By: LUI Co-signed By: ANKIT Admin: 05/15/22 08:11 Dose: 1 unit Documented By: LUI Co-signed By: ANKIT Admin: 05/14/22 21:50 Dose: 2 unit Documented By: CAMILLE Co-signed By: MATT Letrozole (Letrozole 2.5 Mg Tablet) 2.5 mg PO BID [facility] Last Admin: 05/16/22 09:00 Dose: 2.5 mg Documented By: Admin: 05/15/22 20:51 Dose: 2.5 mg Documented By: MARIA C Admin: 05/15/22 09:51 Dose: 2.5 mg Documented By: LUI Losartan Potassium (Losartan 25 Mg Tablet) 25 mg PO DAILY [facility] Last Admin: 05/16/22 09:00 Dose: 25 mg Documented By: Admin: 05/15/22 08:07 Dose: 25 mg Documented By: LUI Naloxone HCl (Naloxone 0.4 Mg/Ml Vial) 0.2 mg IV Q2MIN PRN PRN Reason: Opiate Reversal Non-Formulary Medication (Fenofibrate) 160 mg PO DAILY [facility] Ondansetron HCl (Ondansetron 4 Mg/2 Ml Inj) 4 mg IV NOW PRN PRN Reason: Nausea And Vomiting Last Admin: 05/13/22 13:05 Dose: 4 mg Documented By: LEA Ondansetron HCl (Ondansetron 4 Mg/2 Ml Inj) 4 mg IV Q8HR PRN PRN Reason: Nausea And Vomiting Ondansetron HCl (Ondansetron 4 Mg/2 Ml Inj) 4 mg IV Q4HR PRN PRN Reason: Nausea And Vomiting Pantoprazole Sodium (Pantoprazole 40 Mg Vial) 80 mg IV NOW ONE Stop: 05/13/22 11:35 Last Admin: 05/13/22 13:19 Dose: 80 mg Documented By: LEA Pantoprazole Sodium (Pantoprazole 40 Mg Vial) 40 mg IV DAILY [facility] Last Admin: 05/14/22 08:53 Dose: 40 mg Documented By: LUI Pantoprazole Sodium (Pantoprazole 40 Mg Vial) 40 mg IV DAILY [facility] Stop: 05/15/22 09:01 Last Admin: 05/15/22 08:06 Dose: 40 mg Documented By: LUI Pantoprazole Sodium (Pantoprazole Dr 40 Mg Tablet) 40 mg PO 0700,2100 [facility] Last Admin: 05/16/22 06:34 Dose: 40 mg Documented By: Admin: 05/15/22 20:51 Dose: 40 mg Documented By: CT Sodium Chloride (Sodium Chloride 0.9% Flush) 10 ml IV PRN PRN PRN Reason: Flush Sodium Chloride (Sodium Chloride 0.9% Flush) 10 ml IV BID [facility] Last Admin: 05/16/22 09:01 Dose: 10 ml Documented By: Admin: 05/15/22 20:52 Dose: 10 ml Documented By: Admin: 05/15/22 08:08 Dose: Not Given Documented By: Admin: 05/14/22 21:53 Dose: 10 ml Documented By: CAMILLE Spironolactone (Spironolactone 25 Mg Tablet) 12.5 mg PO DAILY [facility] Last Admin: 05/16/22 09:00 Dose: 12.5 mg Documented By: Admin: 05/15/22 08:06 Dose: 12.5 mg Documented By: LUI Vital Signs Vital signs: Vital Signs - 8 hr 05/13/22 11:04 05/13/22 11:02 05/13/22 11:30 Temperature 98.1 F Pulse Rate 83 87 Respiratory Rate 19 Blood Pressure 147/60 H 131/60 Pulse Oximetry 96 95 Oxygen Delivery Method Room Air 05/13/22 11:30 05/13/22 12:00 05/13/22 12:00 Temperature Pulse Rate 81 80 Respiratory Rate Blood Pressure 115/57 L Pulse Oximetry 98 95 Oxygen Delivery Method 05/13/22 12:53 05/13/22 12:53 05/13/22 13:00 Temperature Pulse Rate 78 Respiratory Rate 19 Blood Pressure 129/57 L 131/63 Pulse Oximetry 99 Oxygen Delivery Method 05/13/22 13:00 05/13/22 13:15 05/13/22 13:15 Temperature Pulse Rate 78 75 Respiratory Rate 22 20 Blood Pressure 125/58 L Pulse Oximetry 99 99 Oxygen Delivery Method 05/13/22 13:30 05/13/22 13:31 05/13/22 13:31 Temperature Pulse Rate 78 80 Respiratory Rate 21 22 Blood Pressure 137/60 Pulse Oximetry 92 96 Oxygen Delivery Method 05/13/22 13:40 05/13/22 13:40 05/13/22 13:45 Temperature Pulse Rate 83 Respiratory Rate 22 Blood Pressure 117/53 L 125/60 Pulse Oximetry 94 Oxygen Delivery Method 05/13/22 13:45 05/13/22 14:00 05/13/22 14:00 Temperature Pulse Rate 76 76 Respiratory Rate 18 15 Blood Pressure 130/55 L Pulse Oximetry 98 95 Oxygen Delivery Method 05/13/22 14:15 05/13/22 14:15 05/13/22 14:30 Temperature Pulse Rate 80 Respiratory Rate 15 Blood Pressure 117/56 L 115/57 L Pulse Oximetry 93 Oxygen Delivery Method 05/13/22 14:30 05/13/22 14:45 05/13/22 14:45 Temperature Pulse Rate 76 77 Respiratory Rate 20 20 Blood Pressure 140/60 Pulse Oximetry 94 95 Oxygen Delivery Method MDM - GI Bleed Lab Data 05/15/22 04:10 05/16/22 04:21 Labs: Lab Results 05/13/22 05/13/22 05/13/22 Range/Units 11:13 11:13 11:13 WBC 15.3 H (4.5-11.0) X10^3/uL RBC 3.20 L (4.0-5.2) X10^6/uL Hgb 7.9 L (12.0-16.0) g/dL Hct 26.2 L (36-46) % MCV 82.0 (80-100) fL MCH 24.7 L (26-34) PG MCHC 30.1 (30-36) % RDW 19.0 H (11.6-14.8) % Plt Count 361 (150-400) X10^3/uL Neut % (Auto) Not Reportable Lymph % (Auto) Not Reportable Dent % (Auto) Not Reportable Eos % (Auto) Not Reportable Baso % (Auto) Not Reportable Lymph # (Auto) Not Reportable Dent # (Auto) Not Reportable Baso # (Auto) Not Reportable Total Counted 100 Seg Neutrophils % 82.0 H (38-70) % Lymphocytes % (Manual) 11.0 L (25-45) % Monocytes % (Manual) 2.0 (2-11) % Basophils % (Manual) 1.0 (0-1) % Metamyelocytes % 4.0 H (-0) % Neutrophils # (Manual) 34576 H (9191-3486) /uL RBC Morphology See below Hypochromasia 2+ H Poikilocytosis 1+ H Anisocytosis 2+ H PT 15.8 H (10.1-12.7) SECONDS INR 1.4 H (0.9-1.3) APTT 32 (26-36) SECONDS Sodium 140 (137-145) mmol/L Potassium 4.1 (3.4-5.1) mmol/L Chloride 106 (98-107) mmol/L Carbon Dioxide 17 L (22-32) mmol/L BUN 53 H (7-17) mg/dL Creatinine 2.78 H (0.52-1.04) mg/dL Estimated GFR 17 L (>60) mL/min BUN/Creatinine Ratio 19.1 (6-22) Glucose 42 L* (80-110) mg/dL Calcium 8.9 (8.4-10.2) mg/dL Total Bilirubin 0.2 (0.2-1.3) mg/dL AST 32 (14-36) IU/L ALT 21 (<35) IU/L Alkaline Phosphatase 86 (38-126) U/L Total Creatine Kinase (30-135) U/L CK-MB (CK-2) CK-MB (CK-2) Rel Index Troponin I (0.01-0.034) ng/mL Total Protein 7.5 (6.3-8.2) g/dL Albumin 4.1 (3.5-5.0) g/dL Globulin 3.4 (1.7-4.1) g/dL Albumin/Globulin Ratio 1.2 (1.0-2.8) SARS-CoV-2 (PCR) (Negative) Blood Type Antibody Screen Crossmatch 05/13/22 05/13/22 05/13/22 Range/Units 11:13 11:13 13:03 WBC (4.5-11.0) X10^3/uL RBC (4.0-5.2) X10^6/uL Hgb (12.0-16.0) g/dL Hct (36-46) % MCV (80-100) fL MCH (26-34) PG MCHC (30-36) % RDW (11.6-14.8) % Plt Count (150-400) X10^3/uL Neut % (Auto) Lymph % (Auto) Dent % (Auto) Eos % (Auto) Baso % (Auto) Lymph # (Auto) Dent # (Auto) Baso # (Auto) Total Counted Seg Neutrophils % (38-70) % Lymphocytes % (Manual) (25-45) % Monocytes % (Manual) (2-11) % Basophils % (Manual) (0-1) % Metamyelocytes % (-0) % Neutrophils # (Manual) (9815-3548) /uL RBC Morphology Hypochromasia Poikilocytosis Anisocytosis PT (10.1-12.7) SECONDS INR (0.9-1.3) APTT (26-36) SECONDS Sodium (137-145) mmol/L Potassium (3.4-5.1) mmol/L Chloride (98-107) mmol/L Carbon Dioxide (22-32) mmol/L BUN (7-17) mg/dL Creatinine (0.52-1.04) mg/dL Estimated GFR (>60) mL/min BUN/Creatinine Ratio (6-22) Glucose (80-110) mg/dL Calcium (8.4-10.2) mg/dL Total Bilirubin (0.2-1.3) mg/dL AST (14-36) IU/L ALT (<35) IU/L Alkaline Phosphatase (38-126) U/L Total Creatine Kinase 70 (30-135) U/L CK-MB (CK-2) TNP CK-MB (CK-2) Rel Index TNP Troponin I < 0.012 (0.01-0.034) ng/mL Total Protein (6.3-8.2) g/dL Albumin (3.5-5.0) g/dL Globulin (1.7-4.1) g/dL Albumin/Globulin Ratio (1.0-2.8) SARS-CoV-2 (PCR) Negative (Negative) Blood Type AB Positive Antibody Screen Negative Crossmatch See Detail Point of Care Testing Glucose POC [address] scan - abdomen/pelvis: Radiologist's Impression: [address] [address] [address] Scan Report Signed Patient: Quiana Krishnan V MR#: [id number] : 1950 Acct:[id number] Age/Sex: 72 / F Date of Service: 05/13/22 Loc: ED Accession Number: [id number] ?? Procedure: CT abdomen pelvis wo con Ordering Provider: Tyler Miles MD PROCEDURE:? CT ABDOMEN PELVIS WO CON ? INDICATIONS:? abd pain/gi bleed ? TECHNIQUE:? After the administration of oral contrast, 5 mm thick sections acquired from the diaphragms to the symphysis.? 5 mm coronal and sagittal reformats were performed .? For radiation dose reduction, the following was used:? automated exposure control, adjustment of mA and/or kV according to patient size.? ? COMPARISON:? None. ? FINDINGS: ? Lower thorax: The lung bases are clear.? Heart size normal.? No hiatal hernia. ? Liver:? Normal in size and attenuation. No contour deformity present. ? Biliary system:? No calcified cholelithiasis or pericholecystic inflammation.? No intra or extrahepatic bile duct dilatation. ? Pancreas:? Unremarkable without mass or inflammation evident. ? Spleen:? Normal in size and density. ? Adrenals:? Normal morphology and density. ? Reproductive system:? Low-density exophytic left-sided uterine lesion measures 5.5 cm with peripheral calcification. ? Urinary system:? Right staghorn calculus associated with renal atrophy.? Nonobstructive left renal calculus measures 1.2 cm.? No evidence of ureteral calculus bilaterally urinary bladder is decompressed.? ? Gastrointestinal system:? The bowel is unremarkable without evidence of bowel obstruction or inflammation. The stomach appears unremarkable.? Multiple diverticula arise from the sigmoid colon without evidence of diverticulitis. ? ? Appendix:? No findings to suggest acute appendicitis. ? Peritoneal spaces:? No mesenteric or retroperitoneal adenopathy.? No free air.? No free fluid.? ? Vasculature:? Aortic atherosclerotic vascular calcification noted without evidence of aneurysm. ? Abdominal wall:? Abdominal wall intact without evidence of ventral or inguinal hernias. ? Musculoskeletal:? Normal bone mineralization.? Degenerative disc disease and arthropathy noted in lower lumbar spine.? No acute fractures.? ? IMPRESSION: ? 1. No acute CT findings in the abdomen and pelvis. ? 2. Bilateral renal calculi without obstructive uropathy or hydronephrosis. ? 3. Low-density left uterine lesion, possible fibroid.? Consider follow-up ultrasound evaluation ? 4. Diverticulosis without evidence of diverticulitis? Approved by: Cal Gaitan M.D. on 05/13/2022 at 12:09? [facility] Narrative Medical decision making narrative: Patient brought in by her friend from home for complaints of black stools off and on for the past 4 days. No syncope. Denies abdominal pain. Patient is on Eliquis for cardiac issues. Patient is diabetic. Has not had any changes in her diabetes medications. On my arrival lab had called had low sugar. Patient had bedside Accu-Chek. It was less than 20. Immediate orange juice and apple juice was given. D10 ordered as we are out of D50. Short on supply. Patient feeling much better after drinking apple juice and orange juice. Patient in no distress at this time. No history of GI bleed in the past. No chest pain. Has chronic dyspnea requiring O2 when she walks which is not new. Wears a CPAP at night. Patient sees Dr. Gloria. After history and exam CBC CMP troponin EKG blood glucose apple juice orange juice D10 CT abdomen pelvis ordered [facility] CC: GI bleed/hypoglycemia Complicating co-morbidities: On Eliquis Data collected from: Patient and her friend Medical records reviewed: I do not see previous visit here for ID or stroke Differential considered: Includes but not limited to GI bleed/gastric bleed /hypoglycemia/: Cancer Exam documented above, pertinent findings include: Nontender abdomen Lab Test results independently reviewed as above. Pertinent findings: WBC 15.3 hemoglobin 7.9 hematocrit 26.2 platelets 361 PT 15.8 INR 1.4 PTT 32 sodium 140 potassium 4.1 bicarb 17 BUN 53 creatinine 2.78 GFR 17 glucose 42, troponin less than 0.012 Independently reviewed EKG as above axillary junctional rhythm. Rate [address] elevation Imaging studies independently reviewed: CT abdomen pelvis no acute process Consultations: 2:00 p.m. Spoke with primary care, Dr. Gloria, he will admit patient 3:[address] Gloria again, regarding patient now requiring D10 again. Patient given amp of D50 as well. He will consider patient to be ICU status. Treatments: Protonix/dextrose Re-evaluations: 1:50 p.m.. Patient doing much better. Serial Accu-Cheks have been greater than 100. Patient feeling much better. Reviewed results with patient. Agrees for admission. Patient hemodynamically stable. Discussion: Appropriate for admission for observation. Patient hemoglobin 7.9. Significantly lower than 1 year ago. GI bleed likely upper GI. Protonix started here. Patient will need endoscopy. Reviewed with General surgery and primary care for admission. Diagnosis: Acute GI bleed Discharge Plan Departure Patient Disposition: Admitted As Inpatient Clinical Impression: Acute GI bleeding, Hypoglycemia Admit Date/Time: 05/13/22 15:23 Admit Provider: Germán Gloria
[2022-05-13 12:14] LABS: Creatine Kinase 70 U/L (30-135)
[2022-05-13 12:26] LABS: Troponin I < 0.012 ng/mL (0.01-0.034)
[2022-05-13] MEDS: ONDANSETRON 4 MG/2 ML INJ IV (13:05)
[2022-05-13] MEDS: PANTOPRAZOLE 40 MG VIAL 80 MG IV (13:19)
[2022-05-13 13:34] LABS: COVID19 -Nasal RAPID Negative (Negative)
--- NOTE | 2022-05-13 14:15 | PM.HP.1 ---
History of Present Illness History of Present Illness Date Patient Seen: 05/13/22 Time Patient Seen: 14:15 Chief complaint: bleeding from rectum since Thursday Narrative: 72 year old female with multiple medical problems as noted below admitted with probable upper GI bleed. Several days of dark stool per rectum. Became dizzy this morning but that was likely secondary to blood sugar in the 20s (took her meds but did not eat following that). In the ER she was evaluated found to be hemodynamically stable, however her hemoglobin hematocrit were decreased verses previous. CT imaging was unremarkable Patient is chronically anticoagulated with direct oral anticoagulant due to paroxysmal atrial fibrillation Patient's blood sugar corrected nicely with some IV glucose but then drifted back down again although she remained asymptomatic. She is admitted to the ICU for continued close monitoring of her blood sugar as well as her ongoing GI bleed. Surgery has been consulted. Patient History Medical History Cardiomyopathy Chronic gout Chronic renal failure, stage 3a (~11/23/20) Chronic venous stasis dermatitis of both lower extremities COPD (chronic obstructive pulmonary disease) Hyperlipidemia Hypertension Leg pain Low back pain Morbid obesity due to excess calories Nocturia more than twice per night Obesity with alveolar hypoventilation Obstructive sleep apnea of adult Osteoporosis Persistent atrial fibrillation Pulmonary hypertension Type 2 diabetes mellitus Surgical History S/P cataract extraction and insertion of intraocular lens (~12/2018) Status post dilation and curettage (08/18/11) Status post dilation and curettage (02/08/14) Status post dilation and curettage (07/19/13) Status post tubal ligation Family & Social History Family History Brother Heart disease Brother Heart disease Father Heart disease Mother Heart disease Sister Age: 76 Heart disease Diabetes mellitus Social History: household members none Safety & Behavioral: Feels Safe in Current Yes Environment Been Physically Hurt or No Threatened By a Person Tobacco & Substance use: Smoking Status Never smoker alcohol intake current alcohol intake frequency holiday/special occasion Substance Use Type does not use Meds Home Medications and Allergies Home Medications Medication Instructions Recorded Confirmed Type FERROUS GLUCONATE (IRON) 325 mg PO BID ##90 07/30/11 04/21/22 Rx Resmed Airsense 10 CPAP #1 ea 06/24/18 04/21/22 History albuterol sulfate 90 mcg/actuation 2 puff inhalation DAILY PRN 04/28/19 04/21/22 History aerosol inhaler (Ventolin HFA) Adequate Ventilation Microlet Lancets #100 ea 12/25/20 04/21/22 Rx Nidhi Next Contour Test Strips #250 ea 09/24/21 04/21/22 Rx apixaban 5 mg tablet 2.5 mg PO BID #90 tabs 10/04/21 04/21/22 Rx Disabled Parking #1 ea 10/17/21 04/21/22 Rx furosemide 20 mg tablet 20 mg PO DAILY 10/17/21 04/21/22 History losartan 25 mg tablet 25 mg PO DAILY 10/17/21 04/21/22 History spironolactone 25 mg tablet 12.5 mg PO DAILY 10/17/21 04/21/22 History amiodarone 200 mg tablet 200 mg PO DAILY #90 tabs 01/21/22 04/21/22 Rx atorvastatin 20 mg tablet 20 mg PO DAILY #90 tabs 01/21/22 04/21/22 Rx fenofibrate 160 mg tablet 160 mg PO DAILY #90 tabs 01/21/22 04/21/22 Rx glipizide 10 mg tablet 10 mg PO DAILY #90 tabs 01/21/22 04/21/22 Rx letrozole 2.5 mg tablet 2.5 mg PO BID #180 tabs 01/21/22 04/21/22 Rx allopurinol 300 mg tablet See Rx Instructions .Route 04/21/22 Rx .COMPLEX #90 tabs metformin 850 mg tablet 850 mg PO BID #180 tabs 05/13/22 Rx Allergies Allergy/AdvReac Type Severity Reaction Status Date / Time fluticasone Allergy Severe FACIAL Verified 04/21/22 13:58 [From Advair Diskus] SWELLING AND TURNS RED salmeterol Allergy Severe FACIAL Verified 04/21/22 13:58 [From Advair Diskus] SWELLING AND TURNS RED albuterol Allergy Intermediate FACE Verified 04/21/22 13:58 SWELLING NO SOB adhesive Allergy Mild MEDICAL Verified 04/21/22 13:58 TAPE LEAVES RED RASH Exam Vital Signs (past 8 hours): - 05/13/22 11:04 05/13/22 11:02 05/13/22 11:30 Temperature 98.1 F Pulse Rate 83 87 Respiratory Rate 19 Blood Pressure 147/60 H 131/60 Pulse Oximetry 96 95 Oxygen Delivery Method Room Air 05/13/22 11:30 Temperature Pulse Rate 81 Respiratory Rate Blood Pressure Pulse Oximetry 98 Oxygen Delivery Method Oxygen Delivery Method Room Air Narrative Exam Narrative: Elderly female in no obvious distress HEENT-unremarkable Lungs-clear somewhat diminished breath sounds consistent with prior Heart-regular rate and rhythm Abdomen-benign, positive bowel tones, obesity limits further exam but there is no tenderness rebound or guarding present Extremities-no cyanosis clubbing or edema Objective Labs 05/13/22 11:13 05/13/22 11:13 Labs: Laboratory Results - last 24 hr 05/13/22 05/13/22 05/13/22 11:13 11:13 11:13 WBC 15.3 H RBC 3.20 L Hgb 7.9 L Hct 26.2 L MCV 82.0 MCH 24.7 L MCHC 30.1 RDW 19.0 H Plt Count 361 Neut % (Auto) Not Reportable Lymph % (Auto) Not Reportable [place] % (Auto) Not Reportable Eos % (Auto) Not Reportable Baso % (Auto) Not Reportable Lymph # (Auto) Not Reportable [place] # (Auto) Not Reportable Baso # (Auto) Not Reportable Total Counted 100 Seg Neutrophils % 82.0 H Lymphocytes % (Manual) 11.0 L Monocytes % (Manual) 2.0 Basophils % (Manual) 1.0 Metamyelocytes % 4.0 H Neutrophils # (Manual) 53410 H RBC Morphology See below Hypochromasia 2+ H Poikilocytosis 1+ H Anisocytosis 2+ H PT 15.8 H INR 1.4 H APTT 32 Sodium 140 Potassium 4.1 Chloride 106 Carbon Dioxide 17 L BUN 53 H Creatinine 2.78 H Estimated GFR 17 L BUN/Creatinine Ratio 19.1 Glucose 42 L* Calcium 8.9 Total Bilirubin 0.2 AST 32 ALT 21 Alkaline Phosphatase 86 Total Creatine Kinase CK-MB (CK-2) CK-MB (CK-2) Rel Index Troponin I Total Protein 7.5 Albumin 4.1 Globulin 3.4 Albumin/Globulin Ratio 1.2 SARS-CoV-2 (PCR) Blood Type Antibody Screen 02/28/23 02/28/23 02/28/23 11:13 11:13 13:03 WBC RBC Hgb Hct MCV MCH MCHC RDW Plt Count Neut % (Auto) Lymph % (Auto) [place] % (Auto) Eos % (Auto) Baso % (Auto) Lymph # (Auto) [place] # (Auto) Baso # (Auto) Total Counted Seg Neutrophils % Lymphocytes % (Manual) Monocytes % (Manual) Basophils % (Manual) Metamyelocytes % Neutrophils # (Manual) RBC Morphology Hypochromasia Poikilocytosis Anisocytosis PT INR APTT Sodium Potassium Chloride Carbon Dioxide BUN Creatinine Estimated GFR BUN/Creatinine Ratio Glucose Calcium Total Bilirubin AST ALT Alkaline Phosphatase Total Creatine Kinase 70 CK-MB (CK-2) TNP CK-MB (CK-2) Rel Index TNP Troponin I < 0.012 Total Protein Albumin Globulin Albumin/Globulin Ratio SARS-CoV-2 (PCR) Negative Blood Type AB Positive Antibody Screen Negative Assessment & Plan Assessment & Plan narrative: 1. GI bleed-based on patient's presentation this certainly seems likely to be an upper GI bleed although can not rule out the possibility of a lower GI bleed. Certainly needs to have her direct oral anticoagulant discontinued and needs careful monitoring for ongoing large volume bleeding. Fortunately she is hemodynamically stable at this point. Transfuse for hematocrit less than 25% or so. Probably should start with upper endoscopy and consider colonoscopy if no findings on that exam. General surgery has been consulted via the emergency department 2. Hyperglycemia-likely secondary to patient's oral medications which in retrospect she can not really tell me how much of what she took (she thinks she only took her metformin which would be surprising if true). Hopefully these will wear off over the next several hours. She will be continued on IV dextrose with careful monitoring of her blood sugar until enough time has elapsed and it seems like her numbers have stabilized, as evidenced by rising blood sugar. Will hold her oral meds for now while we evaluate her GI issues as above. Use insulin as necessary for hyperglycemia (when off IV dextrose) 3. Paroxysmal atrial fibrillation-patient is currently in sinus rhythm. History of extremely difficult to control paroxysmal atrial fibrillation. Hopefully she will continue in sinus rhythm. She will remain off of her oral anticoagulation until source of GI bleeding is evaluated 4. COPD-patient with significant COPD probably with an element of hypoventilation secondary to her obesity resulting in significant chronic pulmonary issues. Fortunately she is asymptomatic at this time and has a normal oxygen saturation. Continue monitor carefully and will likely need CPAP overnight 5. VTE prophylaxis-patient not a candidate for any sort of anticoagulation given the GI bleed as above. Sequential compression devices appropriate and ordered 6. Code status-patient's previous expressed wishes for full code in the event of a sudden cardiac or respiratory arrest including intubation if necessary. Do not anticipate anything like that at this point however. 7. Morbid obesity-patient's obesity is certainly contributing to her above issues including her respiratory issues and her diabetes. Will complicate the ability to monitor and manage her certainly make it more difficult to perform upper and lower endoscopy if required etcetera COVID-19 COVID-19 status: Negative Result date/Date tested (Pos, Neg/Pending): 05/13/22 Time Spent With Patient Critical Care time: I spent a total of [] minutes of critical care time on this patient's care today; this time is exclusive of procedural time.
[2022-05-13] MEDS: DEXTROSE 50 % IN WATER 25 GM/50 ML SYRINGE IV ×2 (14:21→21:42)
[2022-05-13] MEDS: DEXTROSE 10 % IN WATER 1,000 ML 75 ML IV (14:41)
--- NOTE | 2022-05-13 16:34 | PM.CALLCOV.1 ---
Call Coverage Note Note Date of Patient Contact: 05/13/22 Time of Patient Contact: 16:34 Narrative of Care Provided: 72-year-old woman with atrial fibrillation on Eliquis admitted to the hospital with upper GI bleed hemodynamically stable. -EGD tomorrow May 14 -okay for clears and NPO after midnight
--- NOTE | 2022-05-13 16:34 | PC.NURSE ---
1615: Pt arrived from ED. Per report, pt with episodes of bloody stool at home, nausea, and dizziness. Pt takes Eliquis for afib as well as motrin for aches and pains which she was educated to not use together. Noted to have glucose in the 20's in ED. Food and juice given in ED along with amp D50 and infusion of D10. Currently AAOx3. Assisted to commode. Urine sample contaminated with feces. Stool appears minimal however black and tarry. Ambulated to bed with assistance. D10 infusing at 75ml/hr. Glucose 64. Pt given OJ and D10 infusion increased to 84 ml/hr per order. NSR 75. Denies pain.
[2022-05-13 17:01] LABS: Hematocrit 22.8 % (36-46)
[2022-05-13 20:22] LABS: MRSA (Nasal) PCR Not Detected (Not Detect)
--- NOTE | 2022-05-13 21:51 | PC.NURSE ---
able to infuse only about 1/2 of second unit of blood. IV infiltrated and unable to establish 2nd iv. blood sugar check with result of 24, pt. medicated with D50 and awaiting recheck.
--- NOTE | 2022-05-13 21:57 | PC.NURSE ---
Addendum entered by Marla Hughes R.N. 05/13/22 22:15: Updated Dr. Zavala on status of patient as to blood sugar and blood infusion. No new orders noted. Original Note: blood transfusion reaction button clicked in error. No blood transfusion.
[2022-05-14] VITALS (20 sets, daily range): BP systolic 122–170; BP diastolic 60–88; PULSE 68–137; RESP 17–73; TEMP 36.4–37.2; O2SAT 24–99; BMI 43.9
--- NOTE | 2022-05-14 | PATH_ITS ---
[facility] Accession Number: [id number] No. of containers..01 Tissue . 01 Material submitted: . gastrointestinal site - GASTRIC . 01 Diagnosis: Stomach, Biopsy: Chronic active gastritis with focal reactive epithelial and stromal changes suggestive of nearby erosion. Negative for Helicobacter by immunohistochemistry. Negative for intestinal metaplasia. Negative for dysplasia and malignancy. MRV 05/20/2022 1707 Local . 01 Electronically signed: . Chayo Topete MD, Pathologist NPI- [id number] . 01 Gross description: . GASTRIC: Received in formalin are 2 fragment(s) of powers, soft tissue measuring 0.4 x 0.2 x 0.1 cm to 0.2 x 0.1 x 0.1 cm submitted entirely in 1 cassette(s) /CPE 05/15/2022 0602 Local . 01 Microscopic: . An immunohistochemical stain was performed to evaluate for Helicobacter organisms and is negative. The control stain showed appropriate reactivity. . * This test was developed and its performance characteristics determined by [facility]. It has not been cleared or approved by the U.S. Food and Drug Administration. The FDA has determined that such clearance or approval is not necessary. This test is used for clinical purposes. It should not be regarded as investigational or for research. . 01 Pathologist provided ICD-10: R10.9 . 01 CPT . 056820, E89616 Specimen Comment: A courtesy copy of this report has been sent to [phone] Performed at: 01 [facility] [address] [place] [address] [address] [facility], [place], [place] [id number] MD Everett Garcia MD Phone: [phone]
[2022-05-14] MEDS: DEXTROSE 10 % IN WATER 1,000 ML 84 ML IV (00:40)
[2022-05-14 03:56] LABS: Hemoglobin 8.1 g/dL (12.0-16.0)
[2022-05-14 03:57] LABS: Hematocrit 25.7 % (36-46)
[2022-05-14 06:03] LABS: Blood Urea Nitrogen 50 mg/dL (7-17); Calcium 8.3 mg/dL (8.4-10.2); Carbon Dioxide 19 mmol/L (22-32); Chloride 104 mmol/L (98-107); Estimated Glomerular Filt Rate 21 mL/min (>60); Glucose 64 mg/dL (80-110); HEMOLYSIS < 15 (0-50); Potassium 3.7 mmol/L (3.4-5.1); Sodium 135 mmol/L (137-145)
--- NOTE | 2022-05-14 08:40 | P.PN_ITS ---
Subjective Subjective Date Patient Seen: 05/14/22 Time Patient Seen: 08:40 Interval history: Patient without any evidence of further bleeding. No rectal bleeding or discharge whatsoever Blood count did drop yesterday attempted transfused 2 units but IV infiltrated after 1.5 units of packed red cells infused. Barely has a usable IV on the other arm at this point. Also recurrently became hypoglycemic overnight. Blood sugar on hospital lab tests this morning was 64. Patient herself really has no complaints feels okay. She was not really symptomatic with any of the hypoglycemia Exam Vital Signs (past 8 hours): - 05/14/22 01:00 05/14/22 01:03 05/14/22 01:03 Temperature Pulse Rate 89 78 Respiratory Rate 49 H 42 H Blood Pressure 138/60 Pulse Oximetry 93 05/14/22 02:00 05/14/22 03:00 05/14/22 03:42 Temperature Pulse Rate 69 68 Respiratory Rate 32 H 19 Blood Pressure 134/60 Pulse Oximetry 94 95 05/14/22 03:42 05/14/22 04:00 05/14/22 04:00 Temperature 97.8 F Pulse Rate 71 69 Respiratory Rate 34 H 39 H Blood Pressure 157/66 H Pulse Oximetry 96 97 05/14/22 05:00 05/14/22 05:00 05/14/22 06:00 Temperature Pulse Rate 72 Respiratory Rate 30 H Blood Pressure 163/68 H 143/63 H Pulse Oximetry 95 05/14/22 06:00 Temperature Pulse Rate 70 Respiratory Rate 32 H Blood Pressure Pulse Oximetry 96 Oxygen Delivery Method Room Air Objective Labs 05/14/22 03:41 05/14/22 03:41 Labs: Laboratory Results - last 24 hr 05/13/22 05/13/22 05/13/22 11:13 11:13 11:13 WBC 15.3 H RBC 3.20 L Hgb 7.9 L Hct 26.2 L MCV 82.0 MCH 24.7 L MCHC 30.1 RDW 19.0 H Plt Count 361 Neut % (Auto) Not Reportable Lymph % (Auto) Not Reportable [place] % (Auto) Not Reportable Eos % (Auto) Not Reportable Baso % (Auto) Not Reportable Lymph # (Auto) Not Reportable [place] # (Auto) Not Reportable Baso # (Auto) Not Reportable Total Counted 100 Seg Neutrophils % 82.0 H Lymphocytes % (Manual) 11.0 L Monocytes % (Manual) 2.0 Basophils % (Manual) 1.0 Metamyelocytes % 4.0 H Neutrophils # (Manual) 34615 H RBC Morphology See below Hypochromasia 2+ H Poikilocytosis 1+ H Anisocytosis 2+ H PT 15.8 H INR 1.4 H APTT 32 Sodium 140 Potassium 4.1 Chloride 106 Carbon Dioxide 17 L BUN 53 H Creatinine 2.78 H Estimated GFR 17 L BUN/Creatinine Ratio 19.1 Glucose 42 L* Calcium 8.9 Total Bilirubin 0.2 AST 32 ALT 21 Alkaline Phosphatase 86 Total Creatine Kinase CK-MB (CK-2) CK-MB (CK-2) Rel Index Troponin I Total Protein 7.5 Albumin 4.1 Globulin 3.4 Albumin/Globulin Ratio 1.2 Nasal Screen MRSA (PCR) SARS-CoV-2 (PCR) Blood Type Antibody Screen Crossmatch 05/13/22 05/13/22 05/13/22 11:13 11:13 13:03 WBC RBC Hgb Hct MCV MCH MCHC RDW Plt Count Neut % (Auto) Lymph % (Auto) [place] % (Auto) Eos % (Auto) Baso % (Auto) Lymph # (Auto) [place] # (Auto) Baso # (Auto) Total Counted Seg Neutrophils % Lymphocytes % (Manual) Monocytes % (Manual) Basophils % (Manual) Metamyelocytes % Neutrophils # (Manual) RBC Morphology Hypochromasia Poikilocytosis Anisocytosis PT INR APTT Sodium Potassium Chloride Carbon Dioxide BUN Creatinine Estimated GFR BUN/Creatinine Ratio Glucose Calcium Total Bilirubin AST ALT Alkaline Phosphatase Total Creatine Kinase 70 CK-MB (CK-2) TNP CK-MB (CK-2) Rel Index TNP Troponin I < 0.012 Total Protein Albumin Globulin Albumin/Globulin Ratio Nasal Screen MRSA (PCR) SARS-CoV-2 (PCR) Negative Blood Type AB Positive Antibody Screen Negative Crossmatch See Detail 05/13/22 05/13/22 05/14/22 16:04 16:46 03:41 WBC RBC Hgb 7.0 L 8.1 L Hct 22.8 L 25.7 L MCV MCH MCHC RDW Plt Count Neut % (Auto) Lymph % (Auto) [place] % (Auto) Eos % (Auto) Baso % (Auto) Lymph # (Auto) [place] # (Auto) Baso # (Auto) Total Counted Seg Neutrophils % Lymphocytes % (Manual) Monocytes % (Manual) Basophils % (Manual) Metamyelocytes % Neutrophils # (Manual) RBC Morphology Hypochromasia Poikilocytosis Anisocytosis PT INR APTT Sodium Potassium Chloride Carbon Dioxide BUN Creatinine Estimated GFR BUN/Creatinine Ratio Glucose Calcium Total Bilirubin AST ALT Alkaline Phosphatase Total Creatine Kinase CK-MB (CK-2) CK-MB (CK-2) Rel Index Troponin I Total Protein Albumin Globulin Albumin/Globulin Ratio Nasal Screen MRSA (PCR) Not detected SARS-CoV-2 (PCR) Blood Type Antibody Screen Crossmatch 05/14/22 03:41 WBC RBC Hgb Hct MCV MCH MCHC RDW Plt Count Neut % (Auto) Lymph % (Auto) [place] % (Auto) Eos % (Auto) Baso % (Auto) Lymph # (Auto) [place] # (Auto) Baso # (Auto) Total Counted Seg Neutrophils % Lymphocytes % (Manual) Monocytes % (Manual) Basophils % (Manual) Metamyelocytes % Neutrophils # (Manual) RBC Morphology Hypochromasia Poikilocytosis Anisocytosis PT INR APTT Sodium 135 L Potassium 3.7 Chloride 104 Carbon Dioxide 19 L BUN 50 H Creatinine 2.38 H Estimated GFR 21 L BUN/Creatinine Ratio 21.0 Glucose 64 L Calcium 8.3 L Total Bilirubin AST ALT Alkaline Phosphatase Total Creatine Kinase CK-MB (CK-2) CK-MB (CK-2) Rel Index Troponin I Total Protein Albumin Globulin Albumin/Globulin Ratio Nasal Screen MRSA (PCR) SARS-CoV-2 (PCR) Blood Type Antibody Screen Crossmatch [facility] Medical History Cardiomyopathy Chronic gout Chronic renal failure, stage 3a (~11/23/20) Chronic venous stasis dermatitis of both lower extremities COPD (chronic obstructive pulmonary disease) Hyperlipidemia Hypertension Leg pain Low back pain Morbid obesity due to excess calories Nocturia more than twice per night Obesity with alveolar hypoventilation Obstructive sleep apnea of adult Osteoporosis Persistent atrial fibrillation Pulmonary hypertension Type 2 diabetes mellitus Surgical History S/P cataract extraction and insertion of intraocular lens (~12/2018) Status post dilation and curettage (08/18/11) Status post dilation and curettage (02/08/14) Status post dilation and curettage (07/19/13) Status post tubal ligation Family History Brother Heart disease Brother Heart disease Father Heart disease Mother Heart disease Sister Age: 76 Heart disease Diabetes mellitus Social History marital status: details: with 4 adult daughters household members: none Smoking Status: Never smoker alcohol intake: current substance use type: does not use Assessment & Plan Assessment & Plan narrative: 1. GI bleed-patient for upper endoscopy today as per General surgery. Now off anticoagulation no evidence of ongoing bleeding at this point. She is hemodynamically stable etcetera. Continue to monitor hemoglobin hematocrit. Would recommend more stable IV access until we have a better definition of her etiology for her bleeding. Therefore it seems like we are going to have to place at least a midline if not PICC line. That process has been initiated 2. Hypoglycemia-a bit surprising to me she persists with hypoglycemia. She only took her oral meds even though she did not eat at all yesterday. She remains NPO at this point in preparation for procedure although she did have clear liquids last evening. Again I have to believe that this is in part related to her mild dehydration/acute kidney injury on top of the lack of oral intake. Therefore fully believe her medications and therefore hypoglycemia will resolve through the course of the day today. She clearly I think would benefit from reduction in overall oral meds for diabetes when ready for discharge. Most recent hemoglobin A1cs have really been quite outstanding so she is probably overmedicated at this point 3. Atrial fibrillation-this point fortunately no evidence of recurrent atrial fibrillation. Continue on amiodarone 4. Cardiomyopathy-at this point patient has improvement in her renal function will be cautious about IV fluids etcetera. 5. COPD-patient continues to have a normal oxygen saturation not complaining of any dyspnea does not seem to have any increase in pulmonary symptoms. Does have significant hypoventilation secondary to her size with the underlying COPD which at times results in tachypnea and certainly I think results in a bit of a respiratory acidosis as demonstrated on her chemistries. Disposition-overall patient hopefully be able to return home probably tomorrow once we have hopefully established a relatively benign etiology for bleeding. She will remain off anticoagulation indefinitely at this point Quality VTE Deep Vein Thrombosis/Pulmonary Embolism Present on Admission: Yes
[2022-05-14] MEDS: PANTOPRAZOLE 40 MG VIAL IV (08:53)
--- NOTE | 2022-05-14 10:43 | CM.DANOTE ---
Patient is a 72 yo female who was admitted on 05/13/22 for GI Bleed. Pt has [facility] for insurance and her PCP is Dr. Germán Gloria. EMR was reviewed. Per MD, pt with low blood sugar and GI Bleed. Pt also has hx CKD, chronic COPD and is on CPAP for sleep apnea. SW met bedside with pt and explained role and patient confirms she still lives alone at [facility] in [place]. She has 2 daughters that she states are helpful and are able to transport her. Her daughter Varinder Martinez lives on [place] (phone: [phone]). The other daughter, Ricky lives in [facility]. She has a information technology account manager Zoe Gonzales who is also helpful with driving and errands. Pt states she is independent in ADLs and ambulates without an AD. She states that she has a 4 wheel walker available if needs. Pt also has home oxygen at baseline through [employer] but only uses as needed. Pt currently on room air here. Per Surgeon, pt to have upper scope today sometime to determine if active bleed. Pt hopeful for home by tomorrow if stable and does not anticipate any needs. Plan: SW to follow after EGD today by Surgeon with possible d/c to home tomorrow if medically stable via family POV. SW to follow for any further identified needs. JULIAN Duncan Discharge Planning/Care Management CM Discharge Assessment Start: 05/14/22 10:41 Freq: Status: Active Protocol: Document 05/14/22 10:41 BF (Rec: 05/14/22 10:43 BF [id number]) Discharge Planning Assessment Assigned Mat Inspector JULIAN Salcedo DPOA/Assigned Designee Name Dtrs Varinder Jack Advance Directives? No Advance Directives on File No History Provided By Patient,Medical Record Has Patient been admitted in last 30 No days? Prior Living Arrangements Alf Facility Comment [facility] Household Members none Type of transporation used prior to Relies on Others admit Willing to Return to Facility? Yes Independent with ADL's Yes: mostly, has information technology account manager Is patient alert and oriented? Yes Needs Assistance With Home Chores / Shopping Caregiver for Another No Comment states she has available but doesn't use. Barriers to Discharge No Discharge Plan Home Transportation Arrangement Patient states either of her 2 daughters or her information technology account manager can provide her a ride home. Referrals Initiated None needed Whiteboard Updated in Patient Room with Yes name and ext. # of Mat Inspector Review Status In Process Please Provide Date Initial DC 05/14/22 Assessment Was Performed Next Review Type Continued Stay Review
--- NOTE | 2022-05-14 16:06 | PC.NURSE ---
patient transported to OR via wheelchair
[2022-05-14] MEDS: LACTATED RINGERS 1,000 ML 42 ML IV (16:28)
--- NOTE | 2022-05-14 16:32 | SUR.HOLD ---
Large ecchimotic area to right forearm, underside. Warm to touch. Arm elevated and ice applied. Pt states it is from an infiltrated IV. LAC red from infiltrated IV site. Pt states she uses bipap with 2LO2 bled in every night. Dr Shabazz informed and will order for the pt tonight.
--- NOTE | 2022-05-14 16:45 | P.CONS_ITS ---
History of Present Illness Consult details Date Patient Seen: 05/14/22 Time Patient Seen: 16:45 Chief complaint: bleeding from rectum since Thursday Narrative: Ms. Miller is a 72-year-old woman with history of atrial fibrillation on Eliquis who is admitted to the hospital for a GI bleed. She is been bleeding from her bottom for the past several days which she describes as dark tarry appearing stools. At admission she is hemodynamically stable initial hematocrit 26 baseline 36. She has received Protonix and no longer has any blood per rectum. No history of peptic ulcer disease. Meds Home Medications and Allergies Home Medications Medication Instructions Recorded Confirmed Type FERROUS GLUCONATE (IRON) 325 mg PO BID ##90 07/30/11 05/13/22 Rx Resmed Airsense 10 CPAP #1 ea 06/24/18 05/13/22 History albuterol sulfate 90 mcg/actuation 2 puff inhalation DAILY PRN 04/28/19 05/13/22 History aerosol inhaler (Ventolin HFA) Adequate Ventilation Microlet Lancets #100 ea 12/25/20 05/13/22 Rx [employer] Next Contour Test Strips #250 ea 09/24/21 05/13/22 Rx apixaban 5 mg tablet 2.5 mg PO BID #90 tabs 10/04/21 05/13/22 Rx Disabled Parking #1 ea 10/17/21 05/13/22 Rx furosemide 20 mg tablet 20 mg PO DAILY 10/17/21 05/13/22 History losartan 25 mg tablet 25 mg PO DAILY 10/17/21 05/13/22 History spironolactone 25 mg tablet 12.5 mg PO DAILY 10/17/21 05/13/22 History amiodarone 200 mg tablet 200 mg PO DAILY #90 tabs 01/21/22 05/13/22 Rx atorvastatin 20 mg tablet 20 mg PO DAILY #90 tabs 01/21/22 05/13/22 Rx fenofibrate 160 mg tablet 160 mg PO DAILY #90 tabs 01/21/22 05/13/22 Rx glipizide 10 mg tablet 10 mg PO DAILY #90 tabs 01/21/22 05/13/22 Rx letrozole 2.5 mg tablet 2.5 mg PO BID #180 tabs 01/21/22 05/13/22 Rx allopurinol 300 mg tablet See Rx Instructions .Route 04/21/22 05/13/22 Rx .COMPLEX #90 tabs metformin 850 mg tablet 850 mg PO BID #180 tabs 05/13/22 05/13/22 Rx Allergies Allergy/AdvReac Type Severity Reaction Status Date / Time fluticasone Allergy Severe FACIAL Verified 05/14/22 16:08 [From Advair Diskus] SWELLING AND TURNS RED salmeterol Allergy Severe FACIAL Verified 05/14/22 16:08 [From Advair Diskus] SWELLING AND TURNS RED albuterol Allergy Intermediate FACE Verified 05/14/22 16:08 SWELLING NO SOB adhesive Allergy Mild MEDICAL Verified 05/14/22 16:08 TAPE LEAVES RED RASH Exam Vital Signs (past 8 hours): - 05/14/22 09:00 05/14/22 09:01 05/14/22 09:01 Temperature Pulse Rate 73 75 Respiratory Rate 22 20 Blood Pressure 170/69 H Pulse Oximetry 96 96 Oxygen Delivery Method Oxygen Flow Rate 05/14/22 16:13 05/14/22 16:00 Temperature 97.5 F L 97.9 F Pulse Rate 137 H 80 Respiratory Rate 73 H 18 Blood Pressure 145/61 H Pulse Oximetry 24 L 96 Oxygen Delivery Method Room Air Oxygen Flow Rate 94 0 Oxygen Delivery Method Room Air Oxygen Flow Rate 94 Narrative Exam Narrative: General elderly woman alert oriented no acute distress Chest nonlabored respiration Abdomen soft nontender nondistended Objective Labs 05/14/22 03:41 05/14/22 03:41 Labs: Laboratory Results - last 24 hr 05/13/22 05/13/22 05/13/22 11:13 16:04 16:46 Hgb 7.0 L Hct 22.8 L Sodium Potassium Chloride Carbon Dioxide BUN Creatinine Estimated GFR BUN/Creatinine Ratio Glucose Calcium Nasal Screen MRSA (PCR) Not detected Blood Type AB Positive Antibody Screen Negative Crossmatch See Detail 05/14/22 05/14/22 03:41 03:41 Hgb 8.1 L Hct 25.7 L Sodium 135 L Potassium 3.7 Chloride 104 Carbon Dioxide 19 L BUN 50 H Creatinine 2.38 H Estimated GFR 21 L BUN/Creatinine Ratio 21.0 Glucose 64 L Calcium 8.3 L Nasal Screen MRSA (PCR) Blood Type Antibody Screen Crossmatch [facility] Medical History Cardiomyopathy Chronic gout Chronic renal failure, stage 3a (~11/23/20) Chronic venous stasis dermatitis of both lower extremities COPD (chronic obstructive pulmonary disease) Hyperlipidemia Hypertension Leg pain Low back pain Morbid obesity due to excess calories Nocturia more than twice per night Obesity with alveolar hypoventilation Obstructive sleep apnea of adult Osteoporosis Persistent atrial fibrillation Pulmonary hypertension Type 2 diabetes mellitus Surgical History S/P cataract extraction and insertion of intraocular lens (~12/2018) Status post dilation and curettage (08/18/11) Status post dilation and curettage (02/08/14) Status post dilation and curettage (07/19/13) Status post tubal ligation Family History Brother Heart disease Brother Heart disease Father Heart disease Mother Heart disease Sister Age: 76 Heart disease Diabetes mellitus Social History marital status: details: with 4 adult daughters household members: none Tobacco & Substance Use Smoking Status: Never smoker alcohol intake: former substance use type: does not use Assessment & Plan Assessment & Plan narrative: 72-year-old woman with a hemodynamically stable upper GI bleed. Plan is for esophagoduodenoscopy for further evaluation and possible intervention. We discussed an overview of the procedure including its risks of bleeding, intestinal injury need for further procedure. Questions have been answered and she is in agreement with this plan. She provides her verbal and written consent to proceed. Time Spent With Patient Critical Care time: I spent a total of [] minutes of critical care time on this patient's care today; this time is exclusive of procedural time.
--- NOTE | 2022-05-14 17:01 | PM.OP.EGD ---
Operative Date/Time/Diagnoses Date of procedure: 05/14/22 Time of procedure: 17:01 Pre-op diagnosis: GI bleed Post-op diagnosis: other (Gastritis) Procedure & Clinicians Study performed: Esophagoduodenoscopy Same procedure as scheduled: Yes Indications: 72-year-old woman on Eliquis admitted to the hospital with a hemodynamically stable upper GI bleed here for EGD Surgeon: Wiley Shabazz Procedure Notes Procedure in detail: Patient was placed supine on the table. Time out was performed. Sedation was administered by anesthesia. A bite block was placed. the scope was inserted into the mouth and advanced through the esophagus and into the stomach. In the distal portion of the gastric body there were several resolving ulcers less than 1 cm in diameter. No visible vessel, no clot or active hemorrhage. The area around the ulcer was biopsied with forceps. The pylorus was intubated and the duodenum was normal to the 2nd portion. Retroflexion of the scope within the stomach demonstrated no hiatal hernia. The scope was withdrawn into the esophagus the Z line was seen at 30 cm from the incisions. There was no Santa's esophagitis or masses or strictures. Stomach was desufflated and scope removed. Patient tolerated procedure well. Specimen(s): other (Gastric) Complications: none Impression: Resolving Gastric ulcer Post-procedure Plan for aftercare: Appropriate for discharge home on PPI Disposition: Acute Care
[2022-05-14] MEDS: INSULIN LISPRO 100 UNIT/ML 3ML VIAL SUBCUT (21:50)
[2022-05-14] MEDS: SODIUM CHLORIDE 0.9% FLUSH 10 ML IV (21:53)
[2022-05-14] MEDS: ACETAMINOPHEN 325 MG TABLET 650 MG PO (23:45)
[2022-05-15] VITALS (7 sets, daily range): BP systolic 102–151; BP diastolic 49–62; PULSE 66–78; RESP 15–22; TEMP 36.1–36.6; O2SAT 92–99
[2022-05-15 04:31] LABS: Hematocrit 23.5 % (36-46); Hemoglobin 7.3 g/dL (12.0-16.0)
[2022-05-15 04:38] LABS: BUN Creatinine Ratio 18.3 (6-22); Blood Urea Nitrogen 38 mg/dL (7-17); Calcium 8.3 mg/dL (8.4-10.2); Carbon Dioxide 22 mmol/L (22-32); Chloride 106 mmol/L (98-107); Estimated Glomerular Filt Rate 25 mL/min (>60); Glucose 176 mg/dL (80-110); HEMOLYSIS < 15 (0-50); Potassium 4.2 mmol/L (3.4-5.1); Sodium 134 mmol/L (137-145)
--- NOTE | 2022-05-15 05:59 | PC.NURSE ---
[employer] Machine Note-A/Ox4. Voids frequently small amounts of pink tinged urine, denies dysuria, no stools. Mild shortness of breath while ambulating, resolves at rest, SpO2 90-95%, VSS.
[2022-05-15] MEDS: SODIUM CHLORIDE 0.9% 500 ML 1000 ML IV (06:58)
--- NOTE | 2022-05-15 07:33 | P.PN_ITS ---
Subjective Subjective Date Patient Seen: 05/15/22 Time Patient Seen: 07:33 Interval history: Patient had upper endoscopy yesterday which demonstrated several resolving ulcers in the gastric body without evidence high-risk stigmata or recent active bleeding. Biopsies were obtained Patient reminds out evidence of large volume bleeding Blood work this morning shows patient's renal function probably back to baseline (or least headed that direction) and hemoglobin hematocrit stable Blood sugars have increased significantly now several numbers over 200. Exam Vital Signs (past 8 hours): - 05/15/22 00:00 05/15/22 04:00 Temperature 97.0 F L 97.5 F L Pulse Rate 78 77 Respiratory Rate 18 22 Blood Pressure 109/51 L 151/62 H Pulse Oximetry 92 93 Oxygen Delivery Method Room Air Oxygen Flow Rate 94 Objective Labs 05/15/22 04:10 05/16/22 04:21 Labs: Laboratory Results - last 24 hr 05/15/22 05/15/22 04:10 04:10 Hgb 7.3 L Hct 23.5 L Sodium 134 L Potassium 4.2 Chloride 106 Carbon Dioxide 22 BUN 38 H Creatinine 2.08 H Estimated GFR 25 L BUN/Creatinine Ratio 18.3 Glucose 176 H D Calcium 8.3 L PFSH Medical History Cardiomyopathy Chronic gout Chronic renal failure, stage 3a (~11/23/20) Chronic venous stasis dermatitis of both lower extremities COPD (chronic obstructive pulmonary disease) Hyperlipidemia Hypertension Leg pain Low back pain Morbid obesity due to excess calories Nocturia more than twice per night Obesity with alveolar hypoventilation Obstructive sleep apnea of adult Osteoporosis Persistent atrial fibrillation Pulmonary hypertension Type 2 diabetes mellitus Surgical History S/P cataract extraction and insertion of intraocular lens (~12/2018) Status post dilation and curettage (08/18/11) Status post dilation and curettage (02/08/14) Status post dilation and curettage (07/19/13) Status post tubal ligation Family History Brother Heart disease Brother Heart disease Father Heart disease Mother Heart disease Sister Age: 76 Heart disease Diabetes mellitus Social History marital status: details: with 4 adult daughters household members: none Smoking Status: Never smoker alcohol intake: former substance use type: does not use Assessment & Plan Assessment & Plan narrative: 1. GI bleed-patient with upper GI source as documented with her EGD. No high- risk stigmata. She should remain off of her Eliquis for several weeks at this point. Will continue treat with high-dose proton pump inhibitor omeprazole 40 mg b.i.d. or equivalent. Should also avoid NSAIDs although 81 mg aspirin for stroke risk reduction is probably low risk inappropriate after least a week of proton pump inhibitor therapy 2. Hypoglycemia-now resolved. I presume it was her metformin and or glipizide causing her issues. I will restart her on glipizide at very low-dose. Somewhat hesitant to restart metformin until I am convinced her renal functions back to baseline.. She is back on normal carbohydrate consistent diet and will continue to monitor 3. Acute kidney injury-patient's numbers are trending back to baseline. Difficult to know what her actual baseline is, probably a GFR of about 30 or so. Currently she is at 25 verses 17 upon admission so definitely improving 4. Atrial fibrillation-no evidence of recurrence at this point. She will need to remain off her anticoagulation until we feel comfortable with complete healing. She is also struggling to pay for the Eliquis and perhaps alternative strategies to lower her stroke risk would be more appropriate. Will have this discussion as an outpatient 5. Cardiomyopathy-no evidence congestive heart failure at this time. Continue to monitor 6. COPD-stable from respiratory standpoint as well. Continue to monitor Disposition-patient should be able to return home Time Spent With Patient Critical Care time: I spent a total of [] minutes of critical care time on this patient's care today; this time is exclusive of procedural time. Quality VTE Deep Vein Thrombosis/Pulmonary Embolism Present on Admission: Yes
[2022-05-15] MEDS: SODIUM CHLORIDE 0.45% 1,000 ML 84 ML IV (07:39)
[2022-05-15] MEDS: FERROUS SULFATE 325 MG TABLET PO ×2 (08:06→17:05)
[2022-05-15] MEDS: PANTOPRAZOLE 40 MG VIAL IV (08:06)
[2022-05-15] MEDS: AMIODARONE 200 MG TABLET PO (08:06)
[2022-05-15] MEDS: SPIRONOLACTONE 25 MG TABLET 12.5 MG PO (08:06)
[2022-05-15] MEDS: ATORVASTATIN 20 MG TABLET PO (08:06)
[2022-05-15] MEDS: LOSARTAN 25 MG TABLET PO (08:07)
[2022-05-15] MEDS: glipiZIDE 5 MG TABLET 2.5 MG PO ×2 (08:07→16:55)
[2022-05-15] MEDS: SODIUM CHLORIDE 0.9% 1,000 ML 84 ML IV (08:08)
[2022-05-15] MEDS: INSULIN LISPRO 100 UNIT/ML 3ML VIAL SUBCUT ×2 (08:11→12:01)
[2022-05-15] MEDS: LETROZOLE 2.5 MG TABLET PO ×2 (09:51→20:51)
[2022-05-15] MEDS: PANTOPRAZOLE DR 40 MG TABLET PO (20:51)
[2022-05-15] MEDS: SODIUM CHLORIDE 0.9% FLUSH 10 ML IV (20:52)
[2022-05-15] MEDS: ACETAMINOPHEN 325 MG TABLET 650 MG PO (22:25)
[2022-05-16 04:00] VITALS: BP 111/54; PULSE 70; RESP 19; TEMP 36.4; O2SAT 92
[2022-05-16 04:56] LABS: Blood Urea Nitrogen 47 mg/dL (7-17); Calcium 7.9 mg/dL (8.4-10.2); Carbon Dioxide 21 mmol/L (22-32); Chloride 107 mmol/L (98-107); Estimated Glomerular Filt Rate 25 mL/min (>60); Glucose 99 mg/dL (80-110); HEMOLYSIS < 15 (0-50); Potassium 4.3 mmol/L (3.4-5.1); Sodium 135 mmol/L (137-145)
[2022-05-16] MEDS: glipiZIDE 5 MG TABLET 2.5 MG PO (06:34)
[2022-05-16] MEDS: PANTOPRAZOLE DR 40 MG TABLET PO (06:34)
[2022-05-16 07:00] VITALS: O2SAT 95
--- NOTE | 2022-05-16 07:24 | PM.DS.1 ---
History of Present Illness History of Present Illness Date Patient Seen: 05/16/22 Time Patient Seen: 07:24 Chief complaint: bleeding from rectum since Thursday Narrative: 72 year old female with multiple medical problems as noted below admitted with probable upper GI bleed. Several days of dark stool per rectum. Became dizzy this morning but that was likely secondary to blood sugar in the 20s (took her meds but did not eat following that). In the ER she was evaluated found to be hemodynamically stable, however her hemoglobin hematocrit were decreased verses previous. CT imaging was unremarkable Patient is chronically anticoagulated with direct oral anticoagulant due to paroxysmal atrial fibrillation Patient's blood sugar corrected nicely with some IV glucose but then drifted back down again although she remained asymptomatic. She is admitted to the ICU for continued close monitoring of her blood sugar as well as her ongoing GI bleed. Surgery has been consulted. Discharge Providers Provider Date of admission: 05/13/22 15:23 Discharge Date: 05/16/22 Primary care physician: Germán Gloria MD Consults: 05/13/22 16:24 Consult to Physician Routine Comment: Consulting Provider: Wiley Shabazz Reason for consultation: GI Bleed Has provider been notified: Yes Discharge provider: Germán Gloria MD Summary Hospital Course Discharge Diagnosis: 1. Upper GI bleed secondary to gastric ulcers 2. Acute blood loss anemia 3. Hypoglycemia secondary to medication 4. Acute kidney injury 5. Chronic renal failure stage 3 a 6. Diabetes type 2 not on chronic insulin therapy 7. Paroxysmal Atrial fibrillation 8. Chronic anticoagulation secondary to atrial fibrillation 9. COPD 10. Morbid obesity 11. Hypertension 12. Hyperlipidemia 13. Pulmonary hypertension 14. Chronic gout Hospital Course: Patient was admitted to the hospital initially the ICU because of need for careful blood sugar monitoring. Patient remained somewhat hypoglycemic requiring IV dextrose support. She was also kept NPO initially over need for upper endoscopy. When she was allowed to eat a more normal diet and by that time several hours at past, patient's blood sugar crept up and was over 150 consistently. At that point IV dextrose was discontinued and patient was restarted on much lower dose of her oral hypoglycemic agents. Etiology of her hypoglycemia was felt to be due to her hypoglycemic agents taken in the setting of acute kidney injury resulting in prolonged effect as well as lack of oral intake. Patient will be restarted on lower dose hypoglycemic agents upon discharge Patient was felt to have an upper GI bleed with slight decrease in hemoglobin hematocrit as well as the obvious melanotic stool output. She would no further stool output during hospitalization and subsequent upper endoscopy demonstrated gastric ulcers as noted in that procedure report. She had her Eliquis discontinued upon admission of course and this was not restarted at any point will not be restarted for several weeks at a minimum. She was placed on proton pump inhibitor therapy upon admission this will be continued as an outpatient for several weeks to allow for healing. Patient was using ibuprofen not on a daily basis intermittent basis as a likely culprit for her upper GI bleed and this practice be discontinued by the patient as well. She may resume an aspirin a day for stroke risk reduction after 7-14 days of treatment with proton pump inhibitor depending on her clinical course Patient did require several unit blood transfusion because of her anemia and she will continue on iron replacement therapy as an outpatient Patient did demonstrate acute kidney injury upon admission with GFR of about 17 at a minimum. This was trending back toward baseline which would be a GFR in the low 30s upon discharge. Because of this her furosemide and metformin will be held and she will continue on only her glipizide. Status at Discharge Cognitive/behavioral status at discharge: at baseline, oriented Functional status at discharge: uses cane/walker Overall status at discharge: patient is progressing back to baseline Time Spent with Patient Time spent: Greater than 30 minutes Exam Vital Signs (past 8 hours): - 05/16/22 04:00 Temperature 97.6 F Pulse Rate 70 Respiratory Rate 19 Blood Pressure 111/54 L Pulse Oximetry 92 Oxygen Delivery Method Room Air Oxygen Flow Rate 0 Objective Labs 05/15/22 04:10 05/16/22 04:21 Labs: Laboratory Results - last 24 hr 05/16/22 04:21 Sodium 135 L Potassium 4.3 Chloride 107 Carbon Dioxide 21 L BUN 47 H Creatinine 2.04 H Estimated GFR 25 L BUN/Creatinine Ratio 23.0 H Glucose 99 Calcium 7.9 L [facility] Medical History (Updated 05/16/22 @ 07:27 by Germán Gloria MD) Cardiomyopathy Chronic gout Chronic renal failure, stage 3a (~11/23/20) Chronic venous stasis dermatitis of both lower extremities COPD (chronic obstructive pulmonary disease) Hyperlipidemia Hypertension Leg pain Low back pain Morbid obesity due to excess calories Nocturia more than twice per night Obesity with alveolar hypoventilation Obstructive sleep apnea of adult Osteoporosis Paroxysmal atrial fibrillation Pulmonary hypertension Type 2 diabetes mellitus Surgical History S/P cataract extraction and insertion of intraocular lens (~12/2018) Status post dilation and curettage (08/18/11) Status post dilation and curettage (02/08/14) Status post dilation and curettage (07/19/13) Status post tubal ligation Family History Brother Heart disease Brother Heart disease Father Heart disease Mother Heart disease Sister Age: 76 Heart disease Diabetes mellitus Social History marital status: details: with 4 adult daughters household members: none Smoking Status: Never smoker alcohol intake: former substance use type: does not use Discharge Assessment & Plan Assessment and Plan Plan of Treatment: Patient to be seen in the outpatient clinic by Dr. Gloria in approximately 7-14 days time She will continue off Eliquis and on lower dose allopurinol as well as off of furosemide because of her acute kidney injury. She will continue off metformin because of her acute kidney injury with glipizide is her only diabetes medication Discharge Plan Discharge Plan Patient Disposition: Home Discharge orders & Medications Prescriptions: New omeprazole 40 mg capsule,delayed release(DR/EC) 40 mg PO BID Qty: 60 2RF allopurinol 100 mg tablet 100 mg PO DAILY Qty: 90 3RF Continued FERROUS GLUCONATE (IRON) 325 mg PO BID Qty: 90 3RF letrozole 2.5 mg tablet 2.5 mg PO BID Qty: 180 1RF atorvastatin 20 mg tablet 20 mg PO DAILY Qty: 90 1RF glipizide 10 mg tablet 10 mg PO DAILY Qty: 90 1RF amiodarone 200 mg tablet 200 mg PO DAILY Qty: 90 2RF losartan 25 mg tablet 25 mg PO DAILY spironolactone 25 mg tablet 12.5 mg PO DAILY albuterol sulfate [Ventolin HFA] 90 mcg/actuation HFA aerosol inhaler 2 puff INHALATION DAILY PRN (Reason: Adequate Ventilation) Discontinued apixaban 5 mg tablet 2.5 mg PO BID Qty: 90 3RF fenofibrate 160 mg tablet 160 mg PO DAILY Qty: 90 1RF allopurinol 300 mg tablet See Rx Instructions .ROUTE .COMPLEX Qty: 90 3RF Dose Instruction: TAKE 1 TABLET BY MOUTH DAILY Rx Instructions: TAKE 1 TABLET BY MOUTH DAILY metformin 850 mg tablet 850 mg PO BID Qty: 180 1RF furosemide 20 mg tablet 20 mg PO DAILY No Action (DME) Microlet Lancets Qty: 100 3RF Rx Instructions: Use to test blood sugars 1-2x a day or as directed by PCP (DME) [employer] Next Contour Test Strips See Rx Instructions .Route .MEDSUPPLY Qty: 250 3RF Rx Instructions: Use to test blood sugars 1-2x a day or as prescribed by provider. (DME) Disabled Parking See Rx Instructions .ROUTE .MEDSUPPLY Qty: 1 0RF Rx Instructions: Patient qualifies for disabled parking as per the attached form. (DME) Resmed Airsense 10 CPAP Qty: 1 Dose Instruction: As directed Patient Comments: Pressure: IPAP 25 EPAP 19 DME: [facility] Rx Instructions: As directed Follow up/Referrals: Germán Gloria MD [Primary Care Provider] - 05/26/22 (week of 05/26/22, please call to [facility] f/u appt) Discharge Health Status Multidrug resistant organism: No MDRO Diet/Activity/Treatments Diet: Diet as Tolerated and Carb-consistent/Diabetic Visit Report/Discharge Packet Instructions: DI for Gastric Ulcer Stand Alone Forms: Patient Portal/API, EGD Results: IFP Discharge Data Primary Care Provider: Germán Gloria Quality VTE Deep Vein Thrombosis/Pulmonary Embolism Present on Admission: Yes
[2022-05-16] MEDS: FERROUS SULFATE 325 MG TABLET PO (08:59)
[2022-05-16] MEDS: AMIODARONE 200 MG TABLET PO (08:59)
[2022-05-16 09:00] VITALS: BP 114/56
[2022-05-16] MEDS: LETROZOLE 2.5 MG TABLET PO (09:00)
[2022-05-16] MEDS: SPIRONOLACTONE 25 MG TABLET 12.5 MG PO (09:00)
[2022-05-16] MEDS: ATORVASTATIN 20 MG TABLET PO (09:00)
[2022-05-16] MEDS: LOSARTAN 25 MG TABLET PO (09:00)
[2022-05-16] MEDS: SODIUM CHLORIDE 0.9% FLUSH 10 ML IV (09:01)
[2022-05-16 09:25] VITALS: BP 114/56; PULSE 73; RESP 17; TEMP 36.6; O2SAT 94
--- NOTE | 2022-05-16 11:21 | PC.NURSE ---
Discharge Note Patient A&O, VSS, RA, no complaints of pain/discomfort. Patient agreeable to discharge plan. Discharge packet reviewed with patient, all questions/concerns addressed. PIV discontinued. Patient able to dress self and pack all belongings. Patient reminded to coal picker prescriptions from preferred pharmacy. Patient taken down via wheelchair to POV.
--- NOTE | 2022-05-16 12:23 | CM.DPC ---
DCP Discharge Home Per MD, pt medically stable to d/c home today and no identified barriers to discharge. Per Rn, pt agreeable with this plan and provided with d/c instructions and taken down to Dtr POV for d/c to home and they will brain picker meds at the pharmacy on the way home and follow up with PCP in 7-14 days. Plan: Patient discharged home today via Dtr POV and no further SW needs at this time. JULIAN Duncan
== END 2022-05-16 10:45 | disposition home or self-care (01) | DRG 378 ==
LOC: ED 14:03 → AC 15:24 → ICU 15:51
PROVIDERS: Surgery; Admitting Provider Internal Medicine; Emergency Provider Emergency Medicine; PCP Internal Medicine; Referring Provider Emergency Medicine; Visit Provider Internal Medicine
PROC: 0DJ08ZZ Inspection of Upper Intestinal Tract, Via Natural or Artificial Opening Endoscopic (ICD-10-PCS; CPT 43235; principal; 2022-05-14 17:15)
DX: K25.4 Chronic or unspecified gastric ulcer with hemorrhage (principal); D62 Acute posthemorrhagic anemia; N17.9 Acute kidney failure, unspecified; Z68.41 Body mass index [BMI] 40.0-44.9, adult; J44.9 Chronic obstructive pulmonary disease, unspecified; I48.0 Paroxysmal atrial fibrillation; E66.01 Morbid (severe) obesity due to excess calories; E11.649 Type 2 diabetes mellitus with hypoglycemia without coma; T38.3X5A Adverse effect of insulin and oral hypoglycemic [antidiabetic] drugs, initial encounter; E11.22 Type 2 diabetes mellitus with diabetic chronic kidney disease; I12.9 Hypertensive chronic kidney disease with stage 1 through stage 4 chronic kidney disease, or unspecified chronic kidney disease; N18.31 Chronic kidney disease, stage 3a; I27.20 Pulmonary hypertension, unspecified; E78.5 Hyperlipidemia, unspecified; M1A.9XX0 Chronic gout, unspecified, without tophus (tophi); Z79.84 Long term (current) use of oral hypoglycemic drugs; Z79.01 Long term (current) use of anticoagulants; Z20.822 Contact with and (suspected) exposure to COVID-19
CPT/HCPCS: 36415; 36430; 36592; 43239; 74176; 80048; 80053; 82550; 82962; 84484; 85007; 85014; 85018; 85025; 85610; 85730; 86850; 86900; 86901; 87635; 87797; 93005; 93010; 96374; 96375; 96376; 99223; 99231; 99233; 99239; 99284; C9803; P9016; C9113; J1815; J2405; J2704; J3010; J7050

== ENCOUNTER → 2022-05-26 11:16 | Outpatient (CLI) | payer OTHER, SELFPAY ==
[2022-05-13 15:55] VITALS: BMI 40.1
[2022-05-26 11:56] LABS: Add Manual Diff / Slide Review YES; Hematocrit 25.5 % (36-46); Hemoglobin 7.7 g/dL (12.0-16.0); Mean Corpuscular Hemoglobin 25.6 PG (26-34); Mean Corpuscular Volume 85.2 fL (80-100); Platelet Count 240 X10^3/uL (150-400); Red Blood Cell Count 2.99 X10^6/uL (4.0-5.2); Red Cell Distribution Width 20.2 % (11.6-14.8); White Blood Cell Count 7.7 X10^3/uL (4.5-11.0)
[2022-05-26 12:10] LABS: Neutrophils Absolute Manual 5775 /uL (3000-5900); Total Cells Counted 100
[2022-05-26 12:11] LABS: Anisocytosis 2+
[2022-05-26 12:14] LABS: Poikilocytosis 1+
[2022-05-26 12:15] LABS: Alanine Aminotransferase 35 IU/L (<35); Albumin 3.3 g/dL (3.5-5.0); Albumin Globulin Ratio 1.2 (1.0-2.8); Alkaline Phosphatase 111 U/L (38-126); Aspartate Aminotransferase 38 IU/L (14-36); BUN Creatinine Ratio 13.4 (6-22); Bilirubin Total 0.4 mg/dL (0.2-1.3); Blood Urea Nitrogen 23 mg/dL (7-17); Calcium 9.2 mg/dL (8.4-10.2); Carbon Dioxide 24 mmol/L (22-32); Chloride 110 mmol/L (98-107); Estimated Glomerular Filt Rate 31 mL/min (>60); Globulin 2.8 g/dL (1.7-4.1); Glucose 109 mg/dL (80-110); HEMOLYSIS < 15 (0-50); Iron 82 ug/dL (37-170); Sodium 141 mmol/L (137-145); Total Protein 6.1 g/dL (6.3-8.2)
[2022-05-26 12:25] LABS: Percent Iron Saturation 17 % (15-50); Total Iron Binding Capacity 487 ug/dL (265-497); Transferrin 352 mg/dL (206-381)
== END ==
PROVIDERS: PCP Internal Medicine; Referring Provider Internal Medicine; Visit Provider Internal Medicine
DX: I10 Essential (primary) hypertension (principal); I42.9 Cardiomyopathy, unspecified; I48.0 Paroxysmal atrial fibrillation; K92.2 Gastrointestinal hemorrhage, unspecified; N18.31 Chronic kidney disease, stage 3a
CPT/HCPCS: 36415; 80053; 83540; 83550; 85007; 85025

== ENCOUNTER → 2022-06-23 15:34 | Outpatient (CLI) | payer OTHER, SELFPAY ==
[2022-05-13 15:55] VITALS: BMI 40.1
[2022-06-23 16:44] LABS: Add Manual Diff / Slide Review NO; Basophils Absolute Auto 100 /uL (0-100); Basophils Percent Auto 0.6 % (0-2); Eosinophils Absolute Auto 100 /uL (0-450); Eosinophils Percent Auto 0.9 % (2-4); Hematocrit 31.3 % (36-46); Hemoglobin 9.5 g/dL (12.0-16.0); Lymphocytes Absolute Auto 1100 /uL (1100-4500); Lymphocytes Percent Auto 12.2 % (25-40); Mean Corpuscular HGB Conc 30.3 % (30-36); Mean Corpuscular Hemoglobin 24.7 PG (26-34); Mean Corpuscular Volume 81.7 fL (80-100); Monocytes Absolute Auto 600 /uL (0-900); Monocytes Percent Auto 6.7 % (3-14); Neutrophils Absolute Auto 7300 /uL (1500-7000); Neutrophils Percent Auto 79.6 % (50-75); Platelet Count 306 X10^3/uL (150-400); Red Blood Cell Count 3.83 X10^6/uL (4.0-5.2); Red Cell Distribution Width 19.3 % (11.6-14.8); White Blood Cell Count 9.1 X10^3/uL (4.5-11.0)
[2022-06-23 17:33] LABS: Alanine Aminotransferase 18 IU/L (<35); Albumin 3.4 g/dL (3.5-5.0); Albumin Globulin Ratio 1.1 (1.0-2.8); Alkaline Phosphatase 143 U/L (38-126); Aspartate Aminotransferase 19 IU/L (14-36); BUN Creatinine Ratio 12.2 (6-22); Bilirubin Total 0.5 mg/dL (0.2-1.3); Blood Urea Nitrogen 18 mg/dL (7-17); Calcium 9.4 mg/dL (8.4-10.2); Carbon Dioxide 26 mmol/L (22-32); Chloride 106 mmol/L (98-107); Estimated Glomerular Filt Rate 37 mL/min (>60); Globulin 3.2 g/dL (1.7-4.1); Glucose 117 mg/dL (80-110); HEMOLYSIS < 15 (0-50); Potassium 4.9 mmol/L (3.4-5.1); Sodium 141 mmol/L (137-145); Total Protein 6.6 g/dL (6.3-8.2)
[2022-06-23 17:42] LABS: HEMOLYSIS < 15 (0-50); Iron 16 ug/dL (37-170); NT-proBNP (BNP-Adult 18+) 5720 pg/mL (<125)
[2022-06-23 17:55] LABS: Percent Iron Saturation 4 % (15-50); Total Iron Binding Capacity 400 ug/dL (265-497); Transferrin 291 mg/dL (206-381)
== END ==
PROVIDERS: PCP Internal Medicine; Referring Provider Internal Medicine; Visit Provider Internal Medicine
DX: E11.9 Type 2 diabetes mellitus without complications (principal); N18.31 Chronic kidney disease, stage 3a; E78.2 Mixed hyperlipidemia; I10 Essential (primary) hypertension; K92.2 Gastrointestinal hemorrhage, unspecified; D64.9 Anemia, unspecified; I42.9 Cardiomyopathy, unspecified
CPT/HCPCS: 36415; 80053; 83540; 83550; 83880; 85025

== ENCOUNTER 2022-07-06 10:42 | Emergency (ER) | payer OTHER, SELFPAY ==
[2022-05-13 15:55] VITALS: BMI 40.1
[2022-07-06] VITALS (8 sets, daily range): BP systolic 129–153; BP diastolic 63–70; PULSE 61–74; RESP 20; TEMP 35.9; O2SAT 88–97; BMI 41.0
--- NOTE | 2022-07-06 11:00 | DI.RAD.S_ITS ---
PROCEDURE: XR WRIST RT MIN 3V INDICATIONS: fall, wrist pain and swelling TECHNIQUE: 4 views of the wrist were acquired. COMPARISON: None. FINDINGS: Bones: Transverse fracture through the distal radius noted with dorsal displacement of the distal fracture fragment. Generalized decreased osseous mineralization Soft tissues: No suspicious soft tissue calcifications. IMPRESSION: Dorsally displaced distal radial fracture. Osteopenia Approved by: Cal Gaitan M.D. on 07/06/2022 at 11:55
--- NOTE | 2022-07-06 12:05 | ED.FALL ---
HPI - Fall <Nicko Alexander PA-C - Last Filed: 07/06/22 18:14> General Chief Complaint: Fall Stated Complaint: fell, rt arm pain, rt hand injury Time Seen by Provider: 07/06/22 11:54 History of Present Illness HPI Narrative: This is a 72-year-old female presents emergency department due to right wrist pain after falling and tripping over her walker landing on her outstretched hand on the right. She would not injure or hit her elbow, shoulder, head, or any other part of her body. She denies any numbness in her right upper extremity. States that the wrist pain is minimal but only hurts when she attempts to move her hand. Denies any change in range of motion of the distal fingers. Denies any fevers, shortness of breath, or any other concerning signs or symptoms. Related Data Home Medications Medication Instructions Recorded Confirmed Resmed Airsense 10 CPAP #1 ea 06/24/18 06/23/22 albuterol sulfate 90 mcg/actuation 2 puff inhalation DAILY PRN 04/28/19 06/23/22 aerosol inhaler (Ventolin HFA) Adequate Ventilation losartan 25 mg tablet 25 mg PO DAILY 10/17/21 06/23/22 spironolactone 25 mg tablet 12.5 mg PO DAILY 10/17/21 06/23/22 Previous Rx's Medication Instructions Recorded FERROUS GLUCONATE (IRON) 325 mg PO BID ##90 07/30/11 Microlet Lancets #100 ea 12/25/20 Nidhi Next Contour Test Strips #250 ea 09/24/21 Disabled Parking #1 ea 10/17/21 amiodarone 200 mg tablet 200 mg PO DAILY #90 tabs 01/21/22 atorvastatin 20 mg tablet 20 mg PO DAILY #90 tabs 01/21/22 glipizide 10 mg tablet 10 mg PO DAILY #90 tabs 01/21/22 letrozole 2.5 mg tablet 2.5 mg PO BID #180 tabs 01/21/22 allopurinol 100 mg tablet 100 mg PO DAILY #90 tabs 05/16/22 omeprazole 40 mg capsule,delayed 40 mg PO BID #60 caps 05/16/22 release amoxicillin 500 mg-potassium 1 tab PO BID #28 tabs 06/23/22 clavulanate 125 mg tablet furosemide 20 mg tablet 20 - 40 mg PO DAILY #90 tabs 06/23/22 oxycodone 5 mg capsule 5 mg PO BID PRN pain #14 caps 07/06/22 oxycodone 5 mg capsule 5 mg PO BID PRN pain #14 caps 07/06/22 Allergies Allergy/AdvReac Type Severity Reaction Status Date / Time fluticasone Allergy Severe FACIAL Verified 06/23/22 14:07 [From Advair Diskus] SWELLING AND TURNS RED salmeterol Allergy Severe FACIAL Verified 06/23/22 14:07 [From Advair Diskus] SWELLING AND TURNS RED albuterol Allergy Intermediate FACE Verified 06/23/22 14:07 SWELLING NO SOB adhesive Allergy Mild MEDICAL Verified 06/23/22 14:07 TAPE LEAVES RED RASH Review of Systems <Nicko Alexander PA-C - Last Filed: 07/06/22 18:14> Review of Systems Narrative: GENERAL: Denies chills, fatigue, malaise, fever, sweats. HEENT: Denies sinus pain, ear pain, sore throat, difficulty swallowing, dizziness. RESPIRATORY: Denies dyspnea, cough, wheezing, hemoptysis, sputum. CARDIOVASCULAR: Denies chest pain, palpitations, orthopnea, edema, GASTROINTESTINAL: Denies nausea, vomiting, abdominal pain, diarrhea, constipation, melena. : Denies dysuria, frequency, incontinence, hematuria, urinary retention. MUSCULOSKELETAL: Reports right wrist pain SKIN: Denies rash, skin lesions, or other NEUROLOGIC: Denies weakness, headache, numbness, change in speech, confusion, seizures, incoordination. PSYCHIATRIC: No concerning psychosocial issues. 12 point review of systems is negative except for those stated above Patient History <Nicko Alexander PA-C - Last Filed: 07/06/22 18:14> Medical History (Updated 07/06/22 @ 12:10 by Nicko Alexander PA-C) Cardiomyopathy Chronic gout Chronic renal failure, stage 3a (~11/23/20) Chronic venous stasis dermatitis of both lower extremities COPD (chronic obstructive pulmonary disease) Hyperlipidemia Hypertension Hypoglycemia Leg pain Low back pain Morbid obesity due to excess calories Nocturia more than twice per night Obesity with alveolar hypoventilation Obstructive sleep apnea of adult Osteoporosis Paroxysmal atrial fibrillation Pulmonary hypertension Type 2 diabetes mellitus Surgical History S/P cataract extraction and insertion of intraocular lens (~12/2018) Status post dilation and curettage (08/18/11) Status post dilation and curettage (02/08/14) Status post dilation and curettage (07/19/13) Status post tubal ligation Family History Brother Heart disease Brother Heart disease Father Heart disease Mother Heart disease Sister Age: 76 Heart disease Diabetes mellitus Social History marital status: details: with 4 adult daughters household members: none Smoking Status: Never smoker alcohol intake: former substance use type: does not use Smoking Status: Never smoker alcohol intake frequency: holidays/special occasions only Substance Use Type: does not use Exam <Nicko Alexander PA-C - Last Filed: 07/06/22 18:14> Narrative Exam Narrative: GENERAL: Well-developed patient, in mild distress. HEAD: Atraumatic. Normocephalic. EYES: Pupils equal round and reactive. Extraocular motions intact. No scleral icterus. No injection or drainage. ENT: Nose without bleeding, purulent drainage. Throat without erythema, tonsillar hypertrophy or exudate. Airway patent. NECK: Trachea midline. Non tender EXTREMITIES: Tenderness to palpation of the distal radius with noticeable edema. Neurovascularly intact throughout. 2+ radial pulse. Range of motion at the wrist limited secondary to pain. BACK: Nontender without deformity or crepitance. No flank tenderness. NEURO: AOx3. SKIN: No rash or erythema of visible areas Initial Vital Signs Initial Vital Signs: Vital Signs Pulse Rate 74 07/06/22 10:58 Pulse Oximetry 96 07/06/22 10:58 <Elena Mason DO - Last Filed: 07/07/22 07:03> Initial Vital Signs Initial Vital Signs: Vital Signs Pulse Rate 74 07/06/22 10:58 Pulse Oximetry 96 07/06/22 10:58 Course <Nicko Alexander PA-C - Last Filed: 07/06/22 18:14> Orders Ordered: ED Orders 07/06/22 11:00 XR wrist RT min 3V Stat Vital Signs Vital signs: Vital Signs - 8 hr 07/06/22 11:00 07/06/22 10:58 07/06/22 10:59 Temperature 96.7 F L Pulse Rate 68 74 69 Respiratory Rate 20 Blood Pressure 153/70 H Pulse Oximetry 88 L 96 96 Oxygen Delivery Method Room Air 07/06/22 10:59 07/06/22 11:00 07/06/22 11:30 Temperature Pulse Rate 67 61 Respiratory Rate Blood Pressure 153/70 H Pulse Oximetry 93 94 Oxygen Delivery Method 07/06/22 12:00 07/06/22 12:19 07/06/22 12:19 Temperature Pulse Rate 62 64 Respiratory Rate Blood Pressure 129/63 Pulse Oximetry 95 97 Oxygen Delivery Method 07/06/22 12:30 07/06/22 13:00 Temperature Pulse Rate 63 64 Respiratory Rate Blood Pressure Pulse Oximetry 95 93 Oxygen Delivery Method <Elena Mason DO - Last Filed: 07/07/22 07:03> Orders Ordered: ED Orders 07/06/22 11:00 XR wrist RT min 3V Stat Vital Signs Vital signs: Vital Signs - 8 hr 07/06/22 11:00 07/06/22 10:58 07/06/22 10:59 Temperature 96.7 F L Pulse Rate 68 74 69 Respiratory Rate 20 Blood Pressure 153/70 H Pulse Oximetry 88 L 96 96 Oxygen Delivery Method Room Air 07/06/22 10:59 07/06/22 11:00 07/06/22 11:30 Temperature Pulse Rate 67 61 Respiratory Rate Blood Pressure 153/70 H Pulse Oximetry 93 94 Oxygen Delivery Method 07/06/22 12:00 07/06/22 12:19 07/06/22 12:19 Temperature Pulse Rate 62 64 Respiratory Rate Blood Pressure 129/63 Pulse Oximetry 95 97 Oxygen Delivery Method 07/06/22 12:30 07/06/22 13:00 Temperature Pulse Rate 63 64 Respiratory Rate Blood Pressure Pulse Oximetry 95 93 Oxygen Delivery Method MDM - Fall <Nicko Alexander PA-C - Last Filed: 07/06/22 18:14> Imaging Data Extremity x-ray #1: Radiologist's Impression: [address] [address] XRay Report Signed Patient: Quiana Krishnan V MR#: [id number] : 1950 Acct:[id number] Age/Sex: 72 / F Date of Service: 07/06/22 Loc: ED Accession Number: [id number] ?? Procedure: XR wrist RT min 3V Ordering Provider: Elena Mason D.O. PROCEDURE:? XR WRIST RT MIN 3V ? INDICATIONS: fall, wrist pain and swelling ? TECHNIQUE:? 4 views of the wrist were acquired.? ? COMPARISON:? None. ? FINDINGS:? ? Bones:? Transverse fracture through the distal radius noted with dorsal displacement of the distal fracture fragment.? Generalized decreased osseous mineralization ? ? Soft tissues:? No suspicious soft tissue calcifications.? ? IMPRESSION:? ? Dorsally displaced distal radial fracture. ? Osteopenia ? ? ? Approved by: Cal Gaitan M.D. on 07/06/2022 at 11:55? MDM Narrative Medical decision making narrative: MDM * differential diagnosis includes but not limited to forearm fracture, neurovascular injury, soft tissue injury * Prior records reviewed: Patient was here about 2 months ago for acute GI bleed. On Eliquis. History of diabetes. Has chronic dyspnea requiring O2 when she walks which is not new. History of cardiomyopathy, gout, chronic renal renal failure, COPD, hypertension, leg pain, lower back pain, paroxysmal atrial fibrillation, pulmonary hypertension hypertension. * My lab interpretation: None obtained * My imgaing interpretation: X-ray shows evidence of a distal radius buckle fracture * Clinical Decision Rules/Scores evaluated: None * Independent discussions with: None ED Course: This is a 72-year-old female presents emergency department after tripping and falling and injuring her right wrist. No other pain to any part of the area. Patient was neurovascularly intact with no visible deformity to the right wrist. X-ray showed a distal radius buckle fracture not displaced enough to warrant reduction. Patient was placed in a sugar-tong splint and recommended follow up with Orthopedics. Shared Decision Making: Discussed plan with the patient who is comfortable with the plan. Social Considerations: None Disposition: Discharged to home Discharge Plan Departure Patient Disposition: Home Clinical Impression: Distal radial fracture Activity Restrictions/Additional Instructions: Thank you for coming to the [facility] Emergency Department today. It appears that on your x-ray you have a distal radius fracture. Please keep your arm in the splint until you are able to follow up with Orthopedics who is information is attached. I sent you medication to [facility]. I hope you feel better soon. Prescriptions: New oxycodone 5 mg capsule 5 mg PO BID PRN (Reason: pain) Qty: 14 0RF oxycodone 5 mg capsule 5 mg PO BID PRN (Reason: pain) Qty: 14 0RF No Action FERROUS GLUCONATE (IRON) 325 mg PO BID Qty: 90 3RF (DME) Microlet Lancets Qty: 100 3RF Rx Instructions: Use to test blood sugars 1-2x a day or as directed by PCP (DME) Nidhi Next Contour Test Strips See Rx Instructions .Route .MEDSUPPLY Qty: 250 3RF Rx Instructions: Use to test blood sugars 1-2x a day or as prescribed by provider. letrozole 2.5 mg tablet 2.5 mg PO BID Qty: 180 1RF atorvastatin 20 mg tablet 20 mg PO DAILY Qty: 90 1RF glipizide 10 mg tablet 10 mg PO DAILY Qty: 90 1RF amiodarone 200 mg tablet 200 mg PO DAILY Qty: 90 2RF losartan 25 mg tablet 25 mg PO DAILY spironolactone 25 mg tablet 12.5 mg PO DAILY (DME) Disabled Parking See Rx Instructions .ROUTE .MEDSUPPLY Qty: 1 0RF Rx Instructions: Patient qualifies for disabled parking as per the attached form. albuterol sulfate [Ventolin HFA] 90 mcg/actuation HFA aerosol inhaler 2 puff INHALATION DAILY PRN (Reason: Adequate Ventilation) furosemide 20 mg tablet 20 - 40 mg PO DAILY Qty: 90 0RF Rx Instructions: 40mg daily for 3 days, then 20mg daily amoxicillin-pot clavulanate 500-125 mg tablet 1 tab PO BID Qty: 28 1RF omeprazole 40 mg capsule,delayed release(DR/EC) 40 mg PO BID Qty: 60 2RF allopurinol 100 mg tablet 100 mg PO DAILY Qty: 90 3RF (DME) Resmed Airsense 10 CPAP Qty: 1 Dose Instruction: As directed Patient Comments: Pressure: IPAP 25 EPAP 19 DME: [facility] Rx Instructions: As directed Referrals: Germán Gloria MD [Primary Care Provider] - Skip Sparrow MD [Physician] - (f/u distal radius fracture ) Stand Alone Forms: Patient Portal/API <Elena Mason DO - Last Filed: 07/07/22 07:03> Cosign ED Attending Cosignature Attestation: I was immediately available in the department for consultation. Documentation has been reviewed.
== END 2022-07-06 13:24 | disposition home or self-care (01) ==
PROVIDERS: Emergency Provider Physician Assistant Medical; PCP Internal Medicine
DX: S52.501A Unspecified fracture of the lower end of right radius, initial encounter for closed fracture (principal); W01.0XXA Fall on same level from slipping, tripping and stumbling without subsequent striking against object, initial encounter
CPT/HCPCS: 73110; 99283

== ENCOUNTER → 2022-10-15 11:13 | Outpatient (CLI) | payer OTHER, SELFPAY ==
[2022-05-13 15:55] VITALS: BMI 40.1
[2022-10-15 12:20] LABS: Alanine Aminotransferase 29 IU/L (<35); Albumin 3.7 g/dL (3.5-5.0); Albumin Globulin Ratio 1.2 (1.0-2.8); Alkaline Phosphatase 150 U/L (38-126); Aspartate Aminotransferase 36 IU/L (14-36); BUN Creatinine Ratio 18.2 (6-22); Bilirubin Total 0.5 mg/dL (0.2-1.3); Blood Urea Nitrogen 31 mg/dL (7-17); Calcium 9.1 mg/dL (8.4-10.2); Carbon Dioxide 26 mmol/L (22-32); Chloride 108 mmol/L (98-107); Estimated Glomerular Filt Rate 31 mL/min (>60); Globulin 3.1 g/dL (1.7-4.1); Glucose 134 mg/dL (80-110); HEMOLYSIS < 15 (0-50); Potassium 4.7 mmol/L (3.4-5.1); Sodium 140 mmol/L (137-145); Total Protein 6.8 g/dL (6.3-8.2)
[2022-10-16 07:07] LABS: x Labcorp Estim. Avg Glu (eAG) 154 mg/dL (.)
== END ==
PROVIDERS: PCP Internal Medicine; Referring Provider Internal Medicine; Visit Provider Internal Medicine
DX: E11.9 Type 2 diabetes mellitus without complications (principal); I10 Essential (primary) hypertension; E78.5 Hyperlipidemia, unspecified
CPT/HCPCS: 36415; 80053; 83036

== ENCOUNTER → 2023-02-17 11:24 | Outpatient (CLI) | payer OTHER, SELFPAY ==
[2022-12-09 15:21] VITALS: BMI 40.1
[2023-02-17 12:50] LABS: Hemoglobin A1C% w Est Avg Glu 6.8 % (4.0-6.0)
[2023-02-17 13:00] LABS: Alanine Aminotransferase 40 IU/L (<35); Albumin 3.7 g/dL (3.5-5.0); Albumin Globulin Ratio 1.1 (1.0-2.8); Alkaline Phosphatase 171 U/L (38-126); Aspartate Aminotransferase 54 IU/L (14-36); BUN Creatinine Ratio 21.8 (6-22); Bilirubin Total 0.7 mg/dL (0.2-1.3); Blood Urea Nitrogen 37 mg/dL (7-17); Carbon Dioxide 27 mmol/L (22-32); Chloride 106 mmol/L (98-107); Cholesterol 158 mg/dL (140-199); Estimated Glomerular Filt Rate 31 mL/min (>60); Globulin 3.3 g/dL (1.7-4.1); Glucose 133 mg/dL (80-110); HDL Cholesterol 52 mg/dL (40-60); HEMOLYSIS < 15 (0-50); LDL Cholesterol Calculated 78 mg/dL (<100); Potassium 4.7 mmol/L (3.4-5.1); Sodium 140 mmol/L (137-145); Triglycerides 141 mg/dL (35-150); Uric Acid 8.8 mg/dL (2.5-6.2)
[2023-02-17 13:04] LABS: NT-proBNP (BNP-Adult 18+) 1200 pg/mL (<125)
[2023-02-17 16:12] LABS: Creatinine Urine Random 74.5 mg/dL; Microalbumi Creatinin Ratio Ur 85.9 ug/mg CR (<30); Microalbumin Urine Random 6.4 mg/dL (0-1.6)
== END ==
PROVIDERS: PCP Internal Medicine; Referring Provider Internal Medicine; Visit Provider Internal Medicine
DX: I10 Essential (primary) hypertension (principal); I50.22 Chronic systolic (congestive) heart failure; E11.9 Type 2 diabetes mellitus without complications; E78.5 Hyperlipidemia, unspecified; M1A.9XX0 Chronic gout, unspecified, without tophus (tophi)
CPT/HCPCS: 36415; 80053; 80061; 82043; 82570; 83036; 83880; 84550

== ENCOUNTER → 2023-04-30 12:30 | Outpatient (CLI) | payer OTHER, SELFPAY ==
[2022-12-09 15:21] VITALS: BMI 40.1
--- NOTE | 2023-04-30 | DI.ECHO.S_ITS ---
[facility] +---------+ [facility] +---------+ : : [address] : : : : [id number] : : : : Phone: [phone]+ Echocardiogram Report + + :Name: SILVIA SAUNDERS V Study Date: 04/30/2023 Height: 60 in : :[facility] ReadingLocation: Weight: 230 lb : : Gender: Female BSA: 2.0 m2 : :: 1950 Age: 73 yrs BP: 135/58 mmHg: :Reason For Study: CARDIOMYOPATHY : :Ordering Physician: RAH, : :BRANDEN Performed By: Osito Hawkins : :Referring: BRANDEN ALAN : + + Interpretation Summary 1) Normal left ventricular size and thickkness with low normal systolic function (EF 50-55%). 2) The right ventricle is mild to moderately dilated. Right ventricular systolic function is mildly reduced. 3) There is mild to moderate aortic stenosis (valve area 1.4cm2, mean gradient 17mmHg). There is mild to moderate aortic regurgitation. 4) Compared to the Echo done 08/24/2021, LVEF has improved from 20-25% to 50- 55% on this study. Procedure: A two-dimensional transthoracic echocardiogram with color flow and Doppler was performed. The study quality was technically adequate. Comparison is made with the echocardiogram of 08/24/21. The patient was in normal sinus rhythm during the exam. The heart rate ranged between 56-61 bpm during the study. Left Ventricle: The left ventricle is normal in size and wall thickness. The ejection fraction is estimated to be 50-55%. There are no focal wall motion abnormalities. Right Ventricle: The right ventricle is mild to moderately dilated. Right ventricular systolic function is mildly reduced. Atria: The left atrial size is normal. Right atrial size is normal. Mitral Valve: The mitral valve is normal in structure and function. There is no mitral valve stenosis. There is trace mitral regurgitation. Aortic Valve: The aortic valve is trileaflet. There is mild aortic valve sclerosis. There is mild to moderate aortic stenosis. The peak aortic velocity is 2.82 m/sec. The aortic valve mean gradient is 17.2 mmHg. There is mild to moderate aortic regurgitation. Tricuspid Valve: The tricuspid valve is normal in structure and function. There is no tricuspid stenosis. There is mild tricuspid regurgitation. Pulmonary artery pressures cannot be estimated because of the lack of a measurable TR jet velocity. Pulmonic Valve: The pulmonic valve is normal in structure and function. There is no pulmonic valvular stenosis. There is no pulmonic valvular regurgitation. Great Vessels: The aortic root is normal size. The ascending aorta could not be visualized. The inferior vena cava was not visualized. Pericardium/ Pleura There is no pericardial effusion. There is no pleural effusion. MMode/2D Measurements & Calculations LVIDd: 5.6 cm LVOT diam: 1.8 cm LVIDs: 4.0 cm Ao root diam: 3.1 cm FS: 28.1 % IVSd: 0.88 cm LVPWd: 0.86 cm LV person. diameter/BSA (cm/m^2): 2.8 LV sys. diameter/BSA (cm/m^2): 2.0 LA A2 area: 16.5 cm2 RA long axis: 4.8 cm LA A4 area: 25.5 cm2 RA area: 15.9 cm2 LA length (vol): 6.8 cm RA vol: 44.9 ml LA vol: 52.4 ml RA : 22.7 ml/m2 LA vol index: 26.5 ml/m2 RVD1 (basal): 4.9 cm RVD2 (mid): 4.3 cm TAPSE: 2.7 cm Doppler Measurements & Calculations Ao V2 max: 282.4 cm/sec LVOT Max Alek: 138.5 cm/sec Ao V2 mean: 194.5 cm/sec LV V1 max P.7 mmHg Ao max P.9 mmHg LV V1 VTI: 36.1 cm Ao mean P.2 mmHg LORA(I,D): 1.4 cm2 Ao V2 VTI: 63.7 cm LORA(V,D): 1.2 cm2 sev ratio: 0.57 LORA indexed to BSA (cm^2/m^2): 0.70 MV E max alek: 64.6 cm/sec TR max alek: 387.8 cm/sec MV A max alek: 97.3 cm/sec TR max P.1 mmHg MV E/A: 0.66 PA V2 max: 129.7 cm/sec Med Peak E' Alek: 6.4 cm/sec PA V2 mean: 81.8 cm/sec E/E' med: 10.2 PA mean P.2 mmHg Lat Peak E' Alek: 7.1 cm/sec PA pr(Accel): 32.8 mmHg E/E' lat: 9.1 E/e' average: 9.6 MV dec time: 0.29 sec SV(LVOT): 87.7 ml Reading Physician:05:15 PM
== END ==
PROVIDERS: PCP Internal Medicine; Referring Provider Internal Medicine Cardiovascular Disease; Visit Provider Internal Medicine Cardiovascular Disease
DX: I42.9 Cardiomyopathy, unspecified (principal); I08.2 Rheumatic disorders of both aortic and tricuspid valves
CPT/HCPCS: 93306

== ENCOUNTER → 2023-07-14 11:07 | Outpatient (CLI) | payer OTHER, SELFPAY ==
[2022-12-09 15:21] VITALS: BMI 40.1
[2023-07-14 11:57] LABS: Add Manual Diff / Slide Review NO; Basophils Absolute Auto 100 /uL (0-100); Basophils Percent Auto 0.6 % (0-2); Eosinophils Absolute Auto 200 /uL (0-450); Eosinophils Percent Auto 2.2 % (2-4); Hematocrit 41.9 % (36-46); Hemoglobin 13.2 g/dL (12.0-16.0); Lymphocytes Absolute Auto 1600 /uL (1100-4500); Mean Corpuscular HGB Conc 31.4 % (30-36); Mean Corpuscular Hemoglobin 28.5 PG (26-34); Mean Corpuscular Volume 90.7 fL (80-100); Monocytes Absolute Auto 600 /uL (0-900); Monocytes Percent Auto 6.6 % (3-14); Neutrophils Absolute Auto 6100 /uL (1500-7000); Neutrophils Percent Auto 71.6 % (50-75); Platelet Count 188 X10^3/uL (150-400); Red Blood Cell Count 4.62 X10^6/uL (4.0-5.2); Red Cell Distribution Width 17.2 % (11.6-14.8); White Blood Cell Count 8.5 X10^3/uL (4.5-11.0)
[2023-07-14 12:10] LABS: Hemoglobin A1C% w Est Avg Glu 7.1 % (4.0-6.0)
[2023-07-14 12:31] LABS: BUN Creatinine Ratio 18.6 (6-22); Blood Urea Nitrogen 32 mg/dL (7-17); Calcium 9.7 mg/dL (8.4-10.2); Carbon Dioxide 25 mmol/L (22-32); Chloride 107 mmol/L (98-107); Cholesterol 164 mg/dL (140-199); Estimated Glomerular Filt Rate 31 mL/min (>60); Glucose 132 mg/dL (80-110); HDL Cholesterol 55 mg/dL (40-60); HEMOLYSIS < 15 (0-50); LDL Cholesterol Calculated 74 mg/dL (<100); Potassium 4.6 mmol/L (3.4-5.1); Sodium 141 mmol/L (137-145); Triglycerides 175 mg/dL (35-150)
[2023-07-14 13:04] LABS: TSH w/ Reflex to FT4 2.67 uIU/mL (0.47-4.68)
== END ==
PROVIDERS: PCP Internal Medicine; Referring Provider Internal Medicine Cardiovascular Disease; Visit Provider Internal Medicine Cardiovascular Disease
DX: I48.0 Paroxysmal atrial fibrillation (principal); E11.9 Type 2 diabetes mellitus without complications; I42.9 Cardiomyopathy, unspecified; N18.31 Chronic kidney disease, stage 3a; D64.9 Anemia, unspecified
CPT/HCPCS: 36415; 80048; 80061; 83036; 84443; 85025

== ENCOUNTER → 2023-08-26 10:57 | Outpatient (CLI) | payer OTHER, SELFPAY ==
[2022-12-09 15:21] VITALS: BMI 40.1
[2023-08-26 12:20] LABS: Hematocrit 39.3 % (36-46); Hemoglobin 12.5 g/dL (12.0-16.0); Mean Corpuscular HGB Conc 31.7 % (30-36); Mean Corpuscular Volume 91.5 fL (80-100); Platelet Count 190 X10^3/uL (150-400); Red Cell Distribution Width 17.2 % (11.6-14.8); White Blood Cell Count 8.3 X10^3/uL (4.5-11.0)
[2023-08-26 12:39] LABS: BUN Creatinine Ratio 17.3 (6-22); Blood Urea Nitrogen 34 mg/dL (7-17); Calcium 8.9 mg/dL (8.4-10.2); Carbon Dioxide 24 mmol/L (22-32); Chloride 111 mmol/L (98-107); Estimated Glomerular Filt Rate 26 mL/min (>60); Glucose 180 mg/dL (80-110); HEMOLYSIS < 15 (0-50); Potassium 5.3 mmol/L (3.4-5.1); Sodium 142 mmol/L (137-145)
[2023-08-26 12:42] LABS: NT-proBNP (BNP-Adult 18+) 2730 pg/mL (<450)
== END ==
PROVIDERS: PCP Internal Medicine; Referring Provider Internal Medicine Cardiovascular Disease; Visit Provider Internal Medicine Cardiovascular Disease
DX: R06.09 Other forms of dyspnea (principal)
CPT/HCPCS: 36415; 80048; 83880; 85027

== ENCOUNTER → 2024-02-09 11:03 | Outpatient (CLI) | payer OTHER, SELFPAY ==
[2022-12-09 15:21] VITALS: BMI 40.1
[2024-02-09 13:10] LABS: Alanine Aminotransferase 15 IU/L (<35); Albumin Globulin Ratio 1.3 (1.0-2.8); Alkaline Phosphatase 145 U/L (38-126); Aspartate Aminotransferase 21 IU/L (14-36); BUN Creatinine Ratio 16.2 (6-22); Bilirubin Total 0.7 mg/dL (0.2-1.3); Blood Urea Nitrogen 32 mg/dL (7-17); Calcium 9.8 mg/dL (8.4-10.2); Carbon Dioxide 24 mmol/L (22-32); Chloride 111 mmol/L (98-107); Cholesterol 181 mg/dL (140-199); Estimated Glomerular Filt Rate 26 mL/min (>60); Glucose 133 mg/dL (80-110); HDL Cholesterol 43 mg/dL (40-60); HEMOLYSIS < 15 (0-50); LDL Cholesterol Calculated 95 mg/dL (<100); Potassium 4.9 mmol/L (3.4-5.1); Sodium 143 mmol/L (137-145); Triglycerides 215 mg/dL (35-150)
== END ==
PROVIDERS: PCP Internal Medicine; Referring Provider Internal Medicine; Visit Provider Internal Medicine
DX: I10 Essential (primary) hypertension (principal); E11.9 Type 2 diabetes mellitus without complications; E78.5 Hyperlipidemia, unspecified
CPT/HCPCS: 36415; 80053; 80061; 83036

== ENCOUNTER → 2024-08-23 09:30 | Outpatient (CLI) | payer OTHER, SELFPAY ==
[2022-12-09 15:21] VITALS: BMI 40.1
[2024-08-23 10:46] LABS: Hemoglobin A1C% w Est Avg Glu 6.6 % (4.0-6.0)
[2024-08-23 10:53] LABS: Alanine Aminotransferase 15 IU/L (<35); Albumin Globulin Ratio 1.5 (1.0-2.8); Alkaline Phosphatase 140 U/L (38-126); Aspartate Aminotransferase 20 IU/L (14-36); BUN Creatinine Ratio 19.9 (6-22); Bilirubin Total 1.1 mg/dL (0.2-1.3); Blood Urea Nitrogen 36 mg/dL (7-17); Calcium 9.6 mg/dL (8.4-10.2); Carbon Dioxide 20 mmol/L (22-32); Chloride 108 mmol/L (98-107); Estimated Glomerular Filt Rate 29 mL/min (>60); Globulin 2.7 g/dL (1.7-4.1); Glucose 222 mg/dL (70-99); HEMOLYSIS < 15 (0-50); Potassium 4.5 mmol/L (3.4-5.1); Sodium 142 mmol/L (137-145); Total Protein 6.7 g/dL (6.3-8.2)
== END ==
PROVIDERS: PCP Internal Medicine; Referring Provider Internal Medicine; Visit Provider Internal Medicine
DX: E11.9 Type 2 diabetes mellitus without complications (principal); E78.2 Mixed hyperlipidemia; I11.0 Hypertensive heart disease with heart failure; N18.31 Chronic kidney disease, stage 3a
CPT/HCPCS: 36415; 80053; 83036

== ENCOUNTER → 2025-02-15 11:10 | Outpatient (CLI) | payer OTHER, SELFPAY ==
[2022-12-09 15:21] VITALS: BMI 40.1
[2025-02-15 11:46] LABS: Add Manual Diff / Slide Review NO; Hematocrit 40.3 % (36-46); Hemoglobin 12.8 g/dL (12.0-16.0); Lymphocytes Absolute Auto 1300 /uL (1100-4500); Mean Corpuscular HGB Conc 31.8 % (30-36); Mean Corpuscular Hemoglobin 28.0 PG (26-34); Mean Corpuscular Volume 88.2 fL (80-100); Platelet Count 169 X10^3/uL (150-400)
[2025-02-15 12:01] LABS: Alanine Aminotransferase 12 IU/L (<35); Albumin 4.0 g/dL (3.5-5.0); Albumin Globulin Ratio 1.3 (1.0-2.8); Alkaline Phosphatase 142 U/L (38-126); Blood Urea Nitrogen 36 mg/dL (7-17); Calcium 9.7 mg/dL (8.4-10.2); Carbon Dioxide 23 mmol/L (22-32); Chloride 110 mmol/L (98-107); Estimated Glomerular Filt Rate 24 mL/min (>60); Globulin 3.2 g/dL (1.7-4.1); Glucose 181 mg/dL (70-99); HEMOLYSIS 45 (0-50); Hemoglobin A1C% w Est Avg Glu 6.3 % (4.0-6.0); Magnesium 2.0 mg/dL (1.6-2.3); Potassium 5.3 mmol/L (3.4-5.1); Sodium 144 mmol/L (137-145); Total Protein 7.2 g/dL (6.3-8.2); Uric Acid 10.8 mg/dL (2.5-6.2)
== END ==
PROVIDERS: PCP Internal Medicine; Referring Provider Internal Medicine; Visit Provider Internal Medicine
DX: I13.0 Hypertensive heart and chronic kidney disease with heart failure and stage 1 through stage 4 chronic kidney disease, or unspecified chronic kidney disease (principal); E11.22 Type 2 diabetes mellitus with diabetic chronic kidney disease; N18.31 Chronic kidney disease, stage 3a; I50.22 Chronic systolic (congestive) heart failure; E78.2 Mixed hyperlipidemia; D64.9 Anemia, unspecified; M10.9 Gout, unspecified
CPT/HCPCS: 36415; 80053; 83036; 83735; 84550; 85025